=== PATIENT | female | born 1940 | race Caucasian/White ===

== ENCOUNTER → 2016-11-01 | Outpatient (CLI) | payer MEDICARE, BC ==
--- NOTE | 2016-11-01 16:45 | US ---
EXAMINATION TYPE: US carotid duplex BILAT DATE OF EXAM: 11/01/2016 3:26 PM COMPARISON: NONE CLINICAL HISTORY: I65.23,OCCLUSION AND STENOSIS OF BILATERAL CAROTID ARTERIES per order. EXAM MEASUREMENTS: RIGHT: Peak Systolic Velocity (PSV) cm/sec ----- Right CCA: 80.3 ----- Right ICA: 86.7 ----- Right ECA: 98.0 ICA/CCA ratio: 1.1 RIGHT: End Diastole cm/sec ----- Right CCA: 21.0 ----- Right ICA: 32.3 ----- Right ECA: 10.9 LEFT: Peak Systolic Velocity (PSV) cm/sec ----- Left CCA: 77.8 ----- Left ICA: 97.6 ----- Left ECA: 94.3 ICA/CCA ratio: 1.3 LEFT: End Diastole cm/sec ----- Left CCA: 21.6 ----- Left ICA: 35.9 ----- Left ECA: 9.5 VERTEBRALS (direction of flow): Right Vertebral: Antegrade Left Vertebral: Antegrade No significant stenosis seen, no elevated velocities, bilateral plaque noted Grayscale images show mild eccentric hyperechoic plaque at bilateral carotid bulbs. Velocity measurem ents and ratios remain within normal limits bilaterally. IMPRESSION: No hemodynamically significant stenosis is seen in either internal carotid artery.
--- NOTE | 2016-11-02 09:52 | ECHOF ---
Referral Reason:I34.9 Mitral valve disorder, I65.23 Stenosis MEASUREMENTS -------- HEIGHT: 154.9 cm WEIGHT: 59.4 kg BP: IVSd: 0.9 cm (0.6 - 1.1) LVIDd: 4.2 cm (3.9 - 5.3) LVPWd: 0.9 cm (0.6 - 1.1) IVSs: 1.8 cm LVIDs: 2.0 cm LVPWs: 1.7 cm LAESV Index (A-L): 31.66 ml/m Ao Diam: 2.6 cm (2.0 - 3.7) AV Cusp: 1.2 cm (1.5 - 2.6) LA Diam: 2.8 cm (2.7 - 3.8) MV EXCURSION: 12.148 mm (> 18.000) MV EF SLOPE: 47 mm/s (70 - 150) EPSS: 0.5 cm MV E Higinio: 1.06 m/s MV DecT: 225 ms MV A Higinio: 1.38 m/s MV E/A Ratio: 0.77 AV maxP.83 mmHg AV meanP.36 mmHg RAP: 5.00 mmHg RVSP: 18.64 mmHg FINDINGS -------- Sinus rhythm. This was a technically good study. Left ventricular wall thickness is normal. Overall left ventricular systolic function is normal with, an EF between 55 - 60 %. The right ventricle is normal in size and function. LA is midly dilated 29-33ml/m2. The right atrium is normal in size. Aortic valve is trileaflet and is mildly thickened. The mitral valve leaflets are moderately thickened. Moderate mitral annular calcification present. Mild mitral regurgitation is present. Mild tricuspid regurgitation present. The right ventricular systolic pressure, as measured by Doppler, is 18.64mmHg. Pulmonic valve appears structurally normal. The aortic root size is normal. The pericardium is normal. CONCLUSIONS -------- 1. Sinus rhythm. 2. Moderate mitral annular calcification present. 3. Mild mitral regurgitation is present. 4. Mild tricuspid regurgitation present. 5. The right ventricular systolic pressure, as measured by Doppler, is 18.64mmHg. 6. Pulmonic valve appears structurally normal. 7. The aortic root size is normal. 8. The pericardium is normal. 9. This was a technically good study. 10. Left ventricular wall thickness is normal. 11. Overall left ventricular systolic function is normal with, an EF between 55 - 60 %. 12. The right ventricle is normal in size and function. 13. LA is midly dilated 29-33ml/m2. 14. The right atrium is normal in size. 15. Aortic valve is trileaflet and is mildly thickened. 16. The mitral valve leaflets are moderately thickened. [employer] EDITOR: Krystin Gates RDCS
== END | disposition home or self-care (01) ==
LOC: RADECHMAIN 14:44
PROVIDERS: ATTEND Internal Medicine
DX: I34.8 Other nonrheumatic mitral valve disorders (principal); I34.0 Nonrheumatic mitral (valve) insufficiency; I07.1 Rheumatic tricuspid insufficiency; I65.23 Occlusion and stenosis of bilateral carotid arteries
CPT/HCPCS: 93306; 93880

== ENCOUNTER → 2017-07-29 | Outpatient (CLI) | payer MEDICARE ==
--- NOTE | 2017-07-30 09:46 | MM ---
Reason for exam: screening (asymptomatic). Last mammogram was performed 1 year and 1 month ago. History: Patient is postmenopausal and history of other cancer. Family history of breast cancer in mother at age 89, breast cancer in daughter at age 43, and breast cancer in daughter at age 49. Physical Findings: A clinical breast exam by your physician is recommended on an annual basis and results should be correlated with mammographic findings. MG 3D Screening Mammo W/Cad Bilateral CC and MLO view(s) were taken. Prior study comparison: June 24, 2016, bilateral MG 3d screening mammo w/cad. June 20, 2015, bilateral MG 3d screening mammo w/cad. The breast tissue is heterogeneously dense. This may lower the sensitivity of mammography. Developing asymmetry in the left 12 o'clock position. This finding is changed when compared with previous exams. ASSESSMENT: Incomplete: need additional imaging evaluation, BI-RAD 0 RECOMMENDATION: Special view mammogram of the left breast. If lesion persists on supplemental views, image directed ultrasound is recommended. [facility] will attempt to contact patient to return for supplemental views and ultrasound if indicated.
== END | disposition home or self-care (01) ==
LOC: RADMAMWWP 13:12
PROVIDERS: ATTEND Internal Medicine
DX: Z12.31 Encounter for screening mammogram for malignant neoplasm of breast (principal)
CPT/HCPCS: 77063; 77067

== ENCOUNTER → 2017-08-08 | Outpatient (CLI) | payer MEDICARE ==
--- NOTE | 2017-08-08 15:07 | MM ---
Reason for exam: additional evaluation requested from abnormal screening. Last mammogram was performed less than 1 month ago. History: Patient is postmenopausal and history of other cancer. Family history of breast cancer in mother at age 89, breast cancer in daughter at age 43, and breast cancer in daughter at age 49. Physical Findings: Nurse did not find any significant physical abnormalities on exam. MG 3D Work Up W/Cad LT Spot compression CC, spot compression MLO, and ML view(s) were taken of the left breast. Prior study comparison: July 29, 2017, bilateral MG 3d screening mammo w/cad. June 24, 2016, bilateral MG 3d screening mammo w/cad. The breast tissue is heterogeneously dense. This may lower the sensitivity of mammography. No suspicious abnormality. The previously seen focal asymmetry resolves and fibroglandular tissue. These results were verbally communicated with the patient and result sheet given to the patient on 08/08/17. ASSESSMENT: Negative, BI-RAD 1 RECOMMENDATION: Return to routine screening mammogram schedule for both breasts.
== END | disposition home or self-care (01) ==
LOC: RADMAMWWP 14:17
PROVIDERS: ATTEND Internal Medicine
DX: R92.8 Other abnormal and inconclusive findings on diagnostic imaging of breast (principal)
CPT/HCPCS: 77065; G0279

== ENCOUNTER → 2017-11-03 | Outpatient (CLI) | payer MEDICARE ==
[2017-11-03 10:02] LABS: Basophils % (A) 0 %; Eosinophils # (A) 0.2 k/uL (0-0.7); Eosinophils % (A) 3 %; HCT 42.4 % (34.0-46.0); HGB 14.2 gm/dL (11.4-16.0); Lymphocytes # (A) 2.2 k/uL (1.0-4.8); Lymphocytes % (A) 32 %; MCH 34.2 pg (25.0-35.0); MCHC 33.5 g/dL (31.0-37.0); MCV 102.1 fL (80.0-100.0); Macrocytosis Slight; Mean Platelet Volume 6.9; Monocytes # (A) 0.6 k/uL (0-1.0); Monocytes % (A) 9 %; Neutrophils # (A) 3.7 k/uL (1.3-7.7); Neutrophils % (A) 54 %; Platelet Count 348 k/uL (150-450); RBC 4.16 m/uL (3.80-5.40); RDW 12.6 % (11.5-15.5); WBC 6.9 k/uL (3.8-10.6)
[2017-11-03 10:04] LABS: ALT 23 U/L (9-52); AST 19 U/L (14-36); Albumin 4.6 g/dL (3.5-5.0); Alkaline Phosphatase 131 U/L (38-126); Anion Gap 14 mmol/L; Blood Urea Nitrogen 6 mg/dL (7-17); Carbon Dioxide 26 mmol/L (22-30); Chloride 96 mmol/L (98-107); Cholesterol 236 mg/dL (<200); Creatine Kinase 37 U/L (30-135); Glucose 105 mg/dL (74-99); Magnesium 1.7 mg/dL (1.6-2.3); Sodium 136 mmol/L (137-145); Total Bilirubin 0.8 mg/dL (0.2-1.3); Total Protein 7.7 g/dL (6.3-8.2); Triglycerides 63 mg/dL (<150)
[2017-11-03 10:11] LABS: HDL Cholesterol 121 mg/dL (40-60); LDL Cholesterol,Calculated 102 mg/dL (0-99); Potassium 4.2 mmol/L (3.5-5.1)
[2017-11-03 10:17] LABS: T4, Free (Free Thyroxine) 1.05 ng/dL (0.78-2.19)
[2017-11-03 10:22] LABS: Appearance,Urine Clear (Clear); Bacteria,Urine Rare /hpf; Bilirubin,Urine Negative (Negative); Blood,Urine Negative (Negative); Color,Urine Light Yellow; Glucose,Urine (UA) Negative (Negative); Ketones,Urine Negative (Negative); Leukocyte Esterase,Urine Trace (Negative); Nitrite,Urine Negative (Negative); PH, Urine 7.5 (5.0-8.0); Protein,Urine Negative (Negative); Specific Gravity,Urine 1.007 (1.001-1.035); Squamous Epithelial Cell,Urine 1 /hpf (0-4); Urobilinogen,Urine <2.0 mg/dL (<2.0); WBC,Urine 1 /hpf (0-5)
[2017-11-03 16:15] LABS: Iron Saturation 34.58 (12.00-45.00)
[2017-11-03 16:38] LABS: Folate, Serum >24.0 ng/mL
[2017-11-03 17:49] LABS: Hemoglobin A1C 4.9 % (4.0-6.0)
== END | disposition home or self-care (01) ==
LOC: LABWHC1 09:28
PROVIDERS: ATTEND Internal Medicine
DX: M47.12 Other spondylosis with myelopathy, cervical region (principal); D64.9 Anemia, unspecified; I10 Essential (primary) hypertension; R73.01 Impaired fasting glucose
CPT/HCPCS: 36415; 80053; 80061; 81001; 82306; 82550; 82607; 82728; 82746; 83036; 83540; 83550; 83735; 84439; 84443; 84550; 85025

== ENCOUNTER → 2018-07-31 | Outpatient (CLI) | payer MEDICARE ==
--- NOTE | 2018-08-09 11:05 | MM ---
Reason for exam: screening (asymptomatic). Last mammogram was performed 1 year ago. History: Patient is postmenopausal and history of other cancer. Family history of breast cancer in mother at age 89, premenopausal breast cancer in daughter at age 43, and breast cancer in daughter at age 49. MG 3D Screening Mammo W/Cad Bilateral CC and MLO view(s) were taken. Prior study comparison: August 08, 2017, left breast MG 3d work up w/cad LT. July 29, 2017, bilateral MG 3d screening mammo w/cad. The breast tissue is heterogeneously dense. This may lower the sensitivity of mammography. There are benign-appearing bilateral breast calcifications. No suspicious abnormality. No significant changes when compared with prior studies. ASSESSMENT: Benign, BI-RAD 2 RECOMMENDATION: Routine screening mammogram of both breasts in 1 year.
== END | disposition home or self-care (01) ==
LOC: RADMAMWWP 10:55
PROVIDERS: ATTEND Internal Medicine
DX: Z12.31 Encounter for screening mammogram for malignant neoplasm of breast (principal)
CPT/HCPCS: 77063; 77067

== ENCOUNTER → 2018-11-04 | Outpatient (CLI) | payer MEDICARE ==
[2018-11-04 10:53] LABS: Basophils % (A) 1 %; Eosinophils # (A) 0.1 k/uL (0-0.7); Eosinophils % (A) 2 %; HCT 41.3 % (34.0-46.0); HGB 13.6 gm/dL (11.4-16.0); Lymphocytes # (A) 2.1 k/uL (1.0-4.8); Lymphocytes % (A) 37 %; MCH 33.5 pg (25.0-35.0); MCHC 32.8 g/dL (31.0-37.0); MCV 102.1 fL (80.0-100.0); Macrocytosis Slight; Mean Platelet Volume 6.9; Monocytes # (A) 0.5 k/uL (0-1.0); Monocytes % (A) 9 %; Neutrophils # (A) 2.7 k/uL (1.3-7.7); Neutrophils % (A) 48 %; Platelet Count 325 k/uL (150-450); RBC 4.05 m/uL (3.80-5.40); RDW 12.7 % (11.5-15.5); WBC 5.5 k/uL (3.8-10.6)
[2018-11-04 11:04] LABS: Appearance,Urine Clear (Clear); Bilirubin,Urine Negative (Negative); Blood,Urine Negative (Negative); Color,Urine Light Yellow; Glucose,Urine (UA) Negative (Negative); Ketones,Urine Negative (Negative); Leukocyte Esterase,Urine Trace (Negative); Nitrite,Urine Negative (Negative); PH, Urine 7.5 (5.0-8.0); Protein,Urine Negative (Negative); Specific Gravity,Urine 1.005 (1.001-1.035); Squamous Epithelial Cell,Urine 1 /hpf (0-4); Urobilinogen,Urine <2.0 mg/dL (<2.0); WBC,Urine 1 /hpf (0-5)
[2018-11-04 17:36] LABS: ALT 14 U/L (8-44); AST 18 U/L (13-35); Albumin/Globulin Ratio 2.09 (1.60-3.17); Alkaline Phosphatase 118 U/L (41-126); Calcium 9.8 mg/dL (8.7-10.3); Carbon Dioxide 26.4 mmol/L (21.6-31.8); Chloride 98 mmol/L (96-109); Cholesterol 223 mg/dL (0-200); Creatine Kinase 39 U/L (26-186); Globulin 2.2 g/dL (1.6-3.3); Glucose 96 mg/dL (70-110); Magnesium 1.7 mg/dL (1.5-2.4); Potassium 4.3 mmol/L (3.5-5.5); Sodium 134 mmol/L (135-145); Total Bilirubin 0.7 mg/dL (0.3-1.2); Total Protein 6.8 g/dL (6.2-8.2); Triglycerides <50.0 mg/dL (0.0-149.0); Uric Acid 2.8 mg/dL (2.9-7.7); VLDL Calculation 9.98 mg/dL (5.00-40.00)
[2018-11-04 18:07] LABS: Hemoglobin A1C 5.1 % (4.0-6.0)
== END | disposition home or self-care (01) ==
LOC: LABWHC1 09:55
PROVIDERS: ATTEND Internal Medicine
DX: Z00.00 Encounter for general adult medical examination without abnormal findings (principal); I10 Essential (primary) hypertension; R73.01 Impaired fasting glucose; M81.0 Age-related osteoporosis without current pathological fracture
CPT/HCPCS: 36415; 80053; 80061; 81001; 82306; 82550; 83036; 83735; 84439; 84443; 84550; 85025

== ENCOUNTER → 2018-11-20 | Outpatient (CLI) | payer MEDICARE ==
--- NOTE | 2018-11-23 19:00 | BD ---
EXAMINATION TYPE: Axial Bone Density DATE OF EXAM: 11/20/2018 COMPARISON: 11/01/2016 CLINICAL HISTORY: 77-year-old female age-related osteoporosis Height: 61 Weight: 140.0 FRAX RISK QUESTIONS: Alcohol (3 or more units per day): no Family History (Parent hip fracture): no Glucocorticoids (More than 3mos): no (Ex: prednisone, prednisolone, methylprednisolone, dexamethasone, and hydrocortisone). History of Fracture in Adulthood: yes Secondary Osteoporosis: 1. Type 1 Diabetes: no 2. Hyperthyroidism: no 3. Menopause before 45: no 4. Malnutrition: no 5. Chronic liver disease: no Rheumatoid Arthritis: no Current Tobacco Use: no RISK FACTORS HISTORY OF: Hip Fracture (Right/Left): right When: 2009 Surgery to Spine/Hip(right/left)/Wrist (right/left): right hip /right femur When: 2009 Family History of Osteoporosis: yes Active: yes Diet low in dairy products/other sources of calcium: no Postmenopausal woman: age 52 Lost more than 2 inches in height since high school: yes MEDICATIONS: blood pressure Additional History: EXAM MEASUREMENTS: Bone mineral densitometry was performed using the [employer] System. Bone mineral density as measured about the Lumbar spine is: ----- L1-L4(G/cm2): 1.445 T Score Values are as follows: ----- L2: 1.2 ----- L3: 1.8 ----- L4: 3.0 ----- L1-L4: 2.2 Bone mineral density has: decreased -2.1 % since study of: 11.01.2016 Bone mineral density about the L hip (g/cm2): 0.812 T Score values are as follows: -----L Neck: -1.6 ----L Total: -0.9 Bone mineral density has: increased 1.9 % since study of: 11.01.2016 IMPRESSION: Osteopenia (T Score between -2.5 and -1). There is slightly increased risk of fracture and the patient may be considered for treatment. Re-Screen 2-5 years. NOTE: T-SCORE=SD OF THE YOUNG ADULT MEAN.
== END | disposition home or self-care (01) ==
LOC: RADBDWWP 15:24
PROVIDERS: ATTEND Internal Medicine
DX: M85.80 Other specified disorders of bone density and structure, unspecified site (principal)
CPT/HCPCS: 77080

== ENCOUNTER → 2019-05-10 | Outpatient (CLI) | payer MEDICARE ==
[2019-05-10 10:15] LABS: Basophils % (A) 1 %; Eosinophils # (A) 0.2 k/uL (0-0.7); Eosinophils % (A) 2 %; HCT 40.3 % (34.0-46.0); HGB 13.7 gm/dL (11.4-16.0); Lymphocytes # (A) 2.2 k/uL (1.0-4.8); Lymphocytes % (A) 30 %; MCH 35.5 pg (25.0-35.0); MCV 104.4 fL (80.0-100.0); Macrocytosis Slight; Mean Platelet Volume 5.8; Monocytes # (A) 0.5 k/uL (0-1.0); Monocytes % (A) 7 %; Neutrophils # (A) 4.2 k/uL (1.3-7.7); Neutrophils % (A) 57 %; Platelet Count 302 k/uL (150-450); RBC 3.86 m/uL (3.80-5.40); RDW 11.9 % (11.5-15.5); WBC 7.3 k/uL (3.8-10.6)
[2019-05-10 17:48] LABS: ALT 16 U/L (8-44); AST 19 U/L (13-35); Alkaline Phosphatase 116 U/L (41-126); Calcium 9.5 mg/dL (8.7-10.3); Carbon Dioxide 27.9 mmol/L (21.6-31.8); Chloride 95 mmol/L (96-109); Chol/HDL Ratio 2.12; Cholesterol 216 mg/dL (0-200); Globulin 2.1 g/dL (1.6-3.3); Glucose 102 mg/dL (70-110); Potassium 4.6 mmol/L (3.5-5.5); Sodium 135 mmol/L (135-145); Total Bilirubin 0.7 mg/dL (0.2-1.2); Total Protein 6.5 g/dL (6.2-8.2); Triglycerides <50.0 mg/dL (0.0-149.0); Uric Acid 3.1 mg/dL (2.9-7.7)
[2019-05-10 19:47] LABS: Hemoglobin A1C 5.2 % (4.0-6.0)
== END | disposition home or self-care (01) ==
LOC: LABWHC1 09:26
PROVIDERS: ATTEND Internal Medicine
DX: I10 Essential (primary) hypertension (principal); E78.2 Mixed hyperlipidemia
CPT/HCPCS: 36415; 80053; 80061; 83036; 84439; 84443; 84550; 85025

== ENCOUNTER → 2019-08-18 | Outpatient (CLI) | payer MEDICARE ==
--- NOTE | 2019-08-19 13:47 | MM ---
Reason for exam: screening (asymptomatic). Last mammogram was performed 1 year and 1 month ago. History: Patient is postmenopausal and history of other cancer. Family history of breast cancer in mother at age 89, premenopausal breast cancer in daughter at age 43, and breast cancer in daughter at age 49. Physical Findings: A clinical breast exam by your physician is recommended on an annual basis and results should be correlated with mammographic findings. MG 3D Screening Mammo W/Cad Bilateral CC and MLO view(s) were taken. Prior study comparison: July 31, 2018, bilateral MG 3d screening mammo w/cad. August 08, 2017, left breast MG 3d work up w/cad LT. The breast tissue is heterogeneously dense. This may lower the sensitivity of mammography. There is no discrete abnormality. No significant changes when compared with prior studies. ASSESSMENT: Negative, BI-RAD 1 RECOMMENDATION: Routine screening mammogram of both breasts in 1 year.
== END | disposition home or self-care (01) ==
LOC: RADMAMWWP 10:56
PROVIDERS: ATTEND Internal Medicine
DX: Z12.31 Encounter for screening mammogram for malignant neoplasm of breast (principal)
CPT/HCPCS: 77063; 77067

== ENCOUNTER → 2020-08-14 | Outpatient (CLI) | payer MEDICARE ==
--- NOTE | 2020-08-14 14:57 | US ---
EXAMINATION TYPE: US venous doppler duplex LE RT DATE OF EXAM: 08/14/2020 12:49 PM COMPARISON: NONE CLINICAL HISTORY: 79-year-old female M79.604 Right leg pain. SIDE PERFORMED: Right TECHNIQUE: The lower extremity deep venous system is examined utilizing real time linear array sonog willian with graded compression, doppler sonography and color-flow sonography. FINDINGS: VESSELS IMAGED: Common Femoral Vein Deep Femoral Vein Greater Saphenous Vein * Femoral Vein Popliteal Vein Small Saphenous Vein * Proximal Calf Veins (* superficial vessels) Right Leg: Negative for DVT IMPRESSION: No evidence for DVT within the right lower extremity imaged from the groin to the upper calf.
== END | disposition home or self-care (01) ==
LOC: RADUSWWP 12:14
PROVIDERS: ATTEND Internal Medicine
DX: M79.604 Pain in right leg (principal)

== ENCOUNTER → 2020-08-21 | Outpatient (CLI) | payer MEDICARE ==
--- NOTE | 2020-08-22 10:01 | MM ---
Reason for exam: screening (asymptomatic). Last mammogram was performed 1 year ago. History: Patient is postmenopausal and history of other cancer. Family history of breast cancer in mother at age 89, premenopausal breast cancer in daughter at age 43, and breast cancer in daughter at age 49. Took hormonal contraceptives for 5 years. Physical Findings: A clinical breast exam by your physician is recommended on an annual basis and results should be correlated with mammographic findings. MG 3D Screening Mammo W/Cad Bilateral CC and MLO view(s) were taken. Prior study comparison: August 18, 2019, bilateral MG 3d screening mammo w/cad. July 31, 2018, bilateral MG 3d screening mammo w/cad. The breast tissue is heterogeneously dense. This may lower the sensitivity of mammography. Stable vascular calcifications. There is no discrete abnormality. No significant changes when compared with prior studies. ASSESSMENT: Benign, BI-RAD 2 RECOMMENDATION: Routine screening mammogram of both breasts in 1 year.
== END | disposition home or self-care (01) ==
LOC: RADMAMWWP 08:34
PROVIDERS: ATTEND Internal Medicine
DX: Z12.31 Encounter for screening mammogram for malignant neoplasm of breast (principal)
CPT/HCPCS: 77063; 77067

== ENCOUNTER → 2020-11-22 | Outpatient (CLI) | payer MEDICARE ==
--- NOTE | 2020-11-24 10:58 | BD ---
EXAMINATION TYPE: Axial Bone Density DATE OF EXAM: 11/22/2020 COMPARISON: NONE CLINICAL HISTORY: Height: 60.5 Weight: 142.5 FRAX RISK QUESTIONS: Alcohol (3 or more units per day): no Family History (Parent hip fracture): no Glucocorticoids (More than 3mos): no (Ex: prednisone, prednisolone, methylprednisolone, dexamethasone, and hydrocortisone). History of Fracture in Adulthood: yes Secondary Osteoporosis: 1. Type 1 Diabetes: no 2. Hyperthyroidism: no 3. Menopause before 45: no 4. Malnutrition: no 5. Chronic liver disease: no Rheumatoid Arthritis: yes Current Tobacco Use: no RISK FACTORS HISTORY OF: Hip Fracture (Right/Left): right When: 4 years ago Surgery to Spine/Hip(right/left)/Wrist (right/left): right hip When: 4 years Family History of Osteoporosis: yes Active: yes Diet low in dairy products/other sources of calcium: no Postmenopausal woman: age 52 Lost more than 2 inches in height since high school: yes MEDICATIONS: scanned into pacs Additional History: EXAM MEASUREMENTS: Bone mineral densitometry was performed using the [employer] System. Bone mineral density as measured about the Lumbar spine is: ----- L1-L4(G/cm2): 1.514 T Score Values are as follows: ----- L2: 1.8 ----- L3: 2.8 ----- L4: 3.7 ----- L1-L4: 2.8 Bone mineral density has: increased 5.6 % since study of: 11.20.2018 Bone mineral density about the L hip (g/cm2): 0.818 T Score values are as follows: -----L Neck: -1.6 -----L Total: -0.9 Bone mineral density has: decreased -0.7 % since study of: 11.20.2018 IMPRESSION: No evidence for osteoporosis or osteopenia NOTE: T-SCORE=SD OF THE YOUNG ADULT MEAN.
== END | disposition home or self-care (01) ==
LOC: RADBDWWP 09:19
PROVIDERS: ATTEND Internal Medicine
DX: M81.8 Other osteoporosis without current pathological fracture (principal)
CPT/HCPCS: 77080

== ENCOUNTER → 2021-02-01 | Outpatient (CLI) | payer MEDICARE ==
[2021-02-01 14:38] LABS: Basophils # (A) 0.06 X 10*3/uL (0.00-0.10); Basophils % (A) 0.9 %; Eosinophils # (A) 0.16 X 10*3/uL (0.04-0.35); Eosinophils % (A) 2.4 %; HCT 39.9 % (37.2-46.3); HGB 13.2 g/dL (12.0-15.0); Lymphocytes # (A) 2.37 X 10*3/uL (0.90-5.00); Lymphocytes % (A) 35.4 %; MCH 34.4 pg (27.0-32.0); MCHC 33.1 g/dL (32.0-37.0); MCV 103.9 fL (80.0-97.0); Mean Platelet Volume 9.9 fL (9.5-12.2); Monocytes # (A) 0.89 X 10*3/uL (0.20-1.00); Monocytes % (A) 13.3 %; Neutrophils % (A) 47.9 %; Platelet Count 337 X 10*3/uL (140-440); RBC 3.84 X 10*6/uL (4.10-5.20); WBC 6.69 X 10*3/uL (4.50-10.00)
[2021-02-01 15:50] LABS: ALT 16 U/L (8-44); AST 23 U/L (13-35); African American GFR (CKD) 107.4 (60.0-200.0); Alkaline Phosphatase 123 U/L (41-126); Calcium 9.4 mg/dL (8.7-10.3); Carbon Dioxide 25.8 mmol/L (21.6-31.8); Chloride 97 mmol/L (96-109); Chol/HDL Ratio 1.89; Cholesterol 202 mg/dL (0-200); Globulin 2.5 g/dL (1.6-3.3); Glucose 97 mg/dL (70-110); Non-African American GFR(CKD) 92.7 (60.0-200.0); Potassium 4.4 mmol/L (3.5-5.5); Sodium 132 mmol/L (135-145); Total Bilirubin 0.7 mg/dL (0.3-1.2); Triglycerides <50.0 mg/dL (0.0-149.0)
== END | disposition home or self-care (01) ==
LOC: LABWHC1 10:07
PROVIDERS: ATTEND Internal Medicine
DX: I10 Essential (primary) hypertension (principal); E78.2 Mixed hyperlipidemia
CPT/HCPCS: 36415; 80053; 80061; 84443; 85025

== ENCOUNTER → 2021-02-27 | Outpatient (CLI) | payer MEDICARE ==
--- NOTE | 2021-02-27 16:43 | US ---
EXAMINATION TYPE: US carotid duplex BILAT DATE OF EXAM: 02/27/2021 COMPARISON: US 2017 CLINICAL HISTORY: 80-year-old female R09.89 Bilateral carotid bruits. EXAM MEASUREMENTS: RIGHT: Peak Systolic Velocity (PSV) cm/sec ----- Right CCA: 94.3 ----- Right ICA: 106.0 ----- Right ECA: 109.9 ICA/CCA ratio: 1.1 RIGHT: End Diastole cm/sec ----- Right CCA: 25.5 ----- Right ICA: 34.6 ----- Right ECA: 13.8 LEFT: Peak Systolic Velocity (PSV) cm/sec ----- Left CCA: 102.5 (proximal 152.6 cm/s) ----- Left ICA: 112.6 ----- Left ECA: 102.5 ICA/CCA ratio: 1.1 LEFT: End Diastole cm/sec ----- Left CCA: 20.9 ----- Left ICA: 35.9 ----- Left ECA: 10.8 VERTEBRALS (direction of flow): Right Vertebral: Antegrade Left Vertebral: Antegrade Rhythm: Normal Certifier notes: Elevated velocity: prox left CCA No significant stenosis. IMPRESSION: 1. Mildly elevated velocity proximal left common carotid artery could reflect a mild to moderate sten osis at its origin. 2. Otherwise, no hemodynamically significant ICA stenosis on either side. NASCET criteria was used in interpretation of this exam? Criteria for Assigning % of Stenosis / Diameter reduction (Estimation based on the indirect measurements of the internal carotid artery velocities (ICA PSV). 1. Normal (no stenosis)=ICA PSV < 125 cm/s: ratio < 2.0: ICA EDV<40 cm/s. 2. Less than 50% stenosis=ICA PSV < 125 cm/s: ratio < 2.0: ICA EDV<40 cm/s. 3. 50 to 69% stenosis=ICA PSV of 125 to 230 cm/s: ration 2.0 ? 4.0: ICA EDV 40-100 cm/s. 4. Greater than 70% stenosis to near occlusion= ICA PSV > 230 cm/s: ratio > 4.0: ICA EDV > 100 cm/s. 5. Near occlusion= ICA PSV velocities may be low or undetectable: variable ratio and ICA EDV. 6. Total occlusion=unable to detect flow.
--- NOTE | 2021-02-28 10:32 | ECHOF ---
Referral Reason:I35.1 Nonrheumatic aortic (valve) insufficiency MEASUREMENTS -------- HEIGHT: 152.4 cm WEIGHT: 64.9 kg BP: IVSd: 1.2 cm (0.6 - 1.1) LVIDd: 4.1 cm (3.9 - 5.3) LVPWd: 0.9 cm (0.6 - 1.1) IVSs: 1.5 cm LVIDs: 3.2 cm LVPWs: 1.2 cm LAESV Index (A-L): 45.56 ml/m Ao Diam: 3.0 cm (2.0 - 3.7) MV E Higinio: 0.93 m/s MV DecT: 279 ms MV A Higinio: 1.39 m/s MV E/A Ratio: 0.67 AV maxP.98 mmHg AV meanP.58 mmHg RAP: 5.00 mmHg RVSP: 37.86 mmHg FINDINGS -------- Sinus rhythm. This was a technically adequate study. The left ventricular size is normal. There is mild concentric left ventricular hypertrophy. Overa ll left ventricular systolic function is normal with, an EF between 55 - 60 %. Pseudonormal LV fill ing pattern, consistent with elevated LA pressure. The right ventricle is normal in size. LA is severely dilated >40 ml/m2 The right atrial size is normal. There is mild aortic stenosis present. Peak/mean gradient across the Aortic Valve is 17.98mmHg / 8. 58mmHg. Severe mitral annular calcification present. Mild mitral regurgitation is present. The peak and mean MV gradients are 10.61mmHg 3.65mmHg as measured by doppler. The tricuspid valve appears structurally normal. Mild tricuspid regurgitation present. There is m ild pulmonary hypertension. The right ventricular systolic pressure, as measured by Doppler, is 37. 86mmHg. There is no pulmonic regurgitation present. The aortic root size is normal. There is no pericardial effusion. CONCLUSIONS -------- 1. There is mild concentric left ventricular hypertrophy. 2. Overall left ventricular systolic function is normal with, an EF between 55 - 60 %. 3. LA is severely dilated >40 ml/m2 4. There is mild aortic stenosis present. 5. Peak/mean gradient across the Aortic Valve is 17.98mmHg / 8.58mmHg. 6. Severe mitral annular calcification present. 7. Mild mitral regurgitation is present. 8. The peak and mean MV gradients are 10.61mmHg 3.65mmHg as measured by doppler. 9. Mild tricuspid regurgitation present. 10. There is mild pulmonary hypertension. 11. There is no pericardial effusion. RADIO ANNOUNCER: Melanie Harris RDCS
== END | disposition home or self-care (01) ==
LOC: RADECHMAIN 15:24
PROVIDERS: ATTEND Internal Medicine
DX: I08.3 Combined rheumatic disorders of mitral, aortic and tricuspid valves (principal); I27.20 Pulmonary hypertension, unspecified; R09.89 Other specified symptoms and signs involving the circulatory and respiratory systems
CPT/HCPCS: 93306; 93880

== ENCOUNTER → 2021-10-09 | Outpatient (CLI) | payer MEDICARE ==
--- NOTE | 2021-10-10 10:33 | MM ---
Reason for exam: screening (asymptomatic). Last mammogram was performed 1 year and 2 months ago. History: Patient is postmenopausal and history of other cancer. Family history of breast cancer in mother at age 89, premenopausal breast cancer in daughter at age 43, and breast cancer in daughter at age 49. Took hormonal contraceptives for 5 years. Physical Findings: A clinical breast exam by your physician is recommended on an annual basis and results should be correlated with mammographic findings. MG 3D Screening Mammo W/Cad Bilateral CC and MLO view(s) were taken. XCCL view(s) were taken of the right breast. Prior study comparison: August 21, 2020, bilateral MG 3d screening mammo w/cad. August 18, 2019, bilateral MG 3d screening mammo w/cad. The breast tissue is heterogeneously dense. This may lower the sensitivity of mammography. Asymmetric breast tissue right breast medially CC view. ASSESSMENT: Incomplete: need additional imaging evaluation, BI-RAD 0 RECOMMENDATION: Ultrasound of the right breast. [facility] will attempt to contact patient to return for ultrasound.
== END | disposition home or self-care (01) ==
LOC: RADMAMWWP 08:14
PROVIDERS: ATTEND Internal Medicine
DX: Z12.31 Encounter for screening mammogram for malignant neoplasm of breast (principal); Z78.0 Asymptomatic menopausal state; Z80.3 Family history of malignant neoplasm of breast
CPT/HCPCS: 77063; 77067

== ENCOUNTER → 2022-01-01 | Outpatient (CLI) | payer MEDICARE ==
[2022-01-01 15:02] LABS: Basophils # (A) 0.04 X 10*3/uL (0.00-0.10); Basophils % (A) 0.7 %; Eosinophils # (A) 0.13 X 10*3/uL (0.04-0.35); Eosinophils % (A) 2.2 %; HGB 12.5 g/dL (12.0-15.0); Immature Grans, Automated 0.2 %; Lymphocytes % (A) 34.5 %; MCH 33.1 pg (27.0-32.0); MCHC 32.1 g/dL (32.0-37.0); MCV 103.2 fL (80.0-97.0); Mean Platelet Volume 10.9 fL (9.5-12.2); Monocytes # (A) 0.68 X 10*3/uL (0.20-1.00); Monocytes % (A) 11.7 %; NRBC Per 100 WBC 0 /100 WBCS (0.0-0.0); Neutrophils # (A) 2.93 X 10*3/uL (1.80-7.70); Neutrophils % (A) 50.7 %; Platelet Count 295 X 10*3/uL (140-440); RBC 3.78 X 10*6/uL (4.10-5.20); RDW 13.3 % (11.5-14.5); WBC 5.79 X 10*3/uL (4.50-10.00)
[2022-01-01 15:28] LABS: ALT 12 U/L (8-44); AST 13 U/L (13-35); African American GFR (CKD) 103.7 (60.0-200.0); Albumin 4.4 g/dL (3.8-4.9); Albumin/Globulin Ratio 1.86 (1.60-3.17); Alkaline Phosphatase 98 U/L (41-126); BUN/Creat Ratio 11.74 Ratio (12.00-20.00); Blood Urea Nitrogen 6.4 mg/dL (9.0-27.0); Calcium 9.6 mg/dL (8.7-10.3); Carbon Dioxide 25.5 mmol/L (20.0-27.5); Chloride 96 mmol/L (96-109); Chol/HDL Ratio 2.41 Ratio; Globulin 2.4 g/dL (1.6-3.3); Glucose 101 mg/dL (70-110); LDL Cholesterol,Calculated 116.2 mg/dL (0.0-131.0); Magnesium 1.7 mg/dL (1.5-2.4); Non-African American GFR(CKD) 89.5 (60.0-200.0); Potassium 4.7 mmol/L (3.5-5.5); Sodium 133 mmol/L (135-145); Total Protein 6.7 g/dL (6.2-8.2); VLDL Calculation 11.28 mg/dL (5.00-40.00)
== END | disposition home or self-care (01) ==
LOC: LABWHC1 08:48
PROVIDERS: ATTEND Internal Medicine
DX: I10 Essential (primary) hypertension (principal); E78.2 Mixed hyperlipidemia; M81.0 Age-related osteoporosis without current pathological fracture
CPT/HCPCS: 36415; 80053; 80061; 83036; 83735; 84439; 84443; 85025

== ENCOUNTER → 2022-10-10 | Outpatient (CLI) | payer MEDICARE ==
--- NOTE | 2022-10-10 10:23 | MM ---
Reason for Exam: Screening (asymptomatic). Last screening mammogram was performed 12 month(s) ago. Patient History: Menarche at age 14. First Full-Term at age 24. Postmenopausal. Other cancer. Patient used Hormonal Contraceptives for 5 years. Daughter had breast cancer, age 43. Daughter had breast cancer, age 49. Mother had breast cancer, age 89. Risk Values: Amelia 5 year model risk: 6.8%. NCI Lifetime model risk: 11.1%. Prior Study Comparison: 08/18/2019 Bilateral Screening Mammogram, [facility]. 08/21/2020 Bilateral Screening Mammogram, [facility]. 10/09/2021 Bilateral Screening Mammogram, [facility]. Tissue Density: The breast tissue is heterogeneously dense. This may lower the sensitivity of mammography. Findings: Analyzed By CAD. Benign-appearing calcifications bilaterally. There is no suspicious group of microcalcifications or new suspicious mass in either breast. Overall Assessment: Benign, BI-RAD 2 Management: Screening Mammogram of both breasts in 1 year. A clinical breast exam by your physician is recommended on an annual basis and results should be correlated with mammographic findings. [facility] will attempt to contact patient to return for supplemental views and ultrasound if indicated. Electronically signed and approved by: Ney Tony DO
== END | disposition home or self-care (01) ==
LOC: RADMAMWWP 09:53
PROVIDERS: ATTEND Internal Medicine
DX: Z12.31 Encounter for screening mammogram for malignant neoplasm of breast (principal); Z78.0 Asymptomatic menopausal state; Z80.3 Family history of malignant neoplasm of breast
CPT/HCPCS: 77063; 77067

== ENCOUNTER → 2023-10-13 | Outpatient (CLI) | payer MEDICARE ==
--- NOTE | 2023-10-14 12:11 | BD ---
EXAMINATION TYPE: Axial Bone Density DATE OF EXAM: 10/13/2023 CLINICAL HISTORY: 82 years old Female. ICD-10 CODE: M81.0 AGE-RELATED OSTEOPOROSIS W/O CURRENT PATHO LO Height: 60 Weight: 146.0 FRAX RISK QUESTIONS: Alcohol (3 or more units per day): no Family History (Parent hip fracture): no Glucocorticoids (More than 3mos): no (Ex: prednisone, prednisolone, methylprednisolone, dexamethasone, and hydrocortisone). History of Fracture in Adulthood: yes Secondary Osteoporosis: 1. Type 1 Diabetes: no 2. Hyperthyroidism: no 3. Menopause before 45: no 4. Malnutrition: no 5. Chronic liver disease: no Rheumatoid Arthritis: yes Current Tobacco Use: no RISK FACTORS HISTORY OF: Hip Fracture (Right/Left): right When: 2010 Surgery to Spine/Hip(right/left)/Wrist (right/left): right hip When: 2010 EXAM MEASUREMENTS: Bone mineral densitometry was performed using the [employer] System. Bone mineral density as measured about the Lumbar spine is: ----- L1-L4(G/cm2): 1.663 T Score Values are as follows: ----- L1: 3.0 ----- L2: 4.3 ----- L3: 4.2 ----- L4: 4.3 ----- L1-L4: 4.0 Z Score Values are as follows: ----- L1: 4.8 ----- L2: 6.1 ----- L3: 6.1 ----- L4: 6.1 ----- L1-L4: 5.8 Bone mineral density has: increased 9.8 % since study of: 11.22.2020 Bone mineral density about the L hip (g/cm2): 0.911 T Score values are as follows: -----L Neck: -1.6 -----L Total: -0.8 Z Score values are as follows: -----L Neck: 0.5 -----L Total: 1.2 Bone mineral density has: increased 2.0 % since study of: 11.22.2020 FRAX%s: The graph provided illustrates a 25.4% chance for a major osteoporotic fx and a 6.6% chance f or the hips probability for fx in 10 years time. IMPRESSION: Normal (Values between +1 and -1 indicate normal bone mass). Consider repeating this study in 5 year s or sooner if there is some new clinical indication. NOTE: T-SCORE=SD OF THE YOUNG ADULT MEAN.
--- NOTE | 2023-10-14 12:18 | MM ---
Reason for Exam: Screening (asymptomatic). Last screening mammogram was performed 12 month(s) ago. Patient History: Menarche at age 14. First Full-Term at age 24. Postmenopausal. Other cancer. Patient used Hormonal Contraceptives for 5 years. Daughter had breast cancer, age 43. Daughter had breast cancer, age 49. Mother had breast cancer, age 89. Risk Values: Amelia 5 year model risk: 6.6%. NCI Lifetime model risk: 10.1%. Prior Study Comparison: 08/21/2020 Bilateral Screening Mammogram, [facility]. 10/09/2021 Bilateral Screening Mammogram, [facility]. 10/10/2022 Bilateral MG 3D screening mammo w/cad, [facility]. Tissue Density: The breasts are heterogeneously dense, which may obscure small masses. Findings: Analyzed By CAD. There is no suspicious group of microcalcifications or new suspicious mass. Overall Assessment: Negative, BI-RAD 1 Management: Screening Mammogram of both breasts in [address] [facility] will attempt to contact patient to return for supplemental views and ultrasound if indicated. Patient should continue monthly self-breast exams. A clinical breast exam by your physician is recommended on an annual basis. This exam should not preclude additional follow-up of suspicious palpable abnormalities. Note on Aemlia scores and lifetime risk: 1. A Amelia score greater than 3% is considered moderate risk. If this is the case, consider specialist referral to assess eligibility for a risk reducing agent. 2. If overall lifetime risk for the development of breast cancer is 20% or higher, the patient may qualify for future screening with alternating mammogram and breast MRI. Electronically signed and approved by: Ney Tony DO
== END | disposition home or self-care (01) ==
LOC: RADBDWWP 10:12
PROVIDERS: ATTEND Internal Medicine
DX: Z12.31 Encounter for screening mammogram for malignant neoplasm of breast (principal); M85.88 Other specified disorders of bone density and structure, other site; Z78.0 Asymptomatic menopausal state; Z80.3 Family history of malignant neoplasm of breast
CPT/HCPCS: 77063; 77067; 77080

== ENCOUNTER 2023-12-31 10:42 | Observation (INO) | payer MEDICARE ==
--- NOTE | 2023-12-31 11:01 | ED ---
Lower Extremity Injury HPI - General Source: patient, RN notes reviewed Mode of arrival: ambulatory Limitations: no limitations <Taryn Scott - Last Filed: 12/31/23 10:58> - General Source: RN notes reviewed, old records reviewed Mode of arrival: ambulatory Limitations: no limitations - History of Present Illness MD Complaint: leg injury -: week(s) (2) Injury: Leg: Right Place: home Severity: mild Severity scale (1-10): 2 Worsens With: nothing Context: direct blow Associated Symptoms: swelling, tingling Treatments Prior to Arrival: bandage <Troy Jain - Last Filed: 12/31/23 15:18> - General Chief Complaint: Extremity Injury, Lower Stated Complaint: Hematoma on R leg Time Seen by Provider: 12/31/23 10:59 - History of Present Illness Initial Comments: Quick Note: This is an 83-year-old female who presents to the emergency department for a right leg injury. States that 2 weeks ago she was hit in the leg with a soccer ball and has since developed a large hematoma. She went to [facility] when she had the initial injury and was told that this would go away, however it is continuing to persist. Not taking any blood thinners. States that this is painful. (Taryn Scott) This is a 83-year-old female to the ER for right leg pain right leg injury with significant hematoma in that leg. Patient has had multiple evaluations were symptoms have not gotten any better this has been 2 weeks of persistent pain (Troy Jain) - Related Data Home Medications Medication Instructions Recorded Confirmed Aspirin 81 mg PO DAILY 12/07/13 02/17/16 Multivitamin/Iron/Folic Acid 1 tab PO DAILY 12/07/13 02/17/16 [Centrum Complete Multivit Tab] Calcium Carbonate/Vitamin D3 1 each PO BID 01/05/14 02/17/16 [Caltrate 600 + D Tablet] Folic Acid 800 mg PO DAILY 01/06/14 02/17/16 Losartan Potassium 100 mg PO QAM 06/20/14 02/17/16 amLODIPine BESYLATE [Amlodipine 5 mg PO QAM 08/08/14 02/17/16 Besylate] Previous Rx's Medication Instructions Recorded diazePAM [Valium] 5 mg PO TID #9 tab 02/17/16 Allergies Allergy/AdvReac Type Severity Reaction Status Date / Time codeine Allergy Unknown Verified 12/31/23 11:00 hydrocodone bitartrate Allergy Itching Verified 12/31/23 11:00 [From [place]] metoprolol Allergy Rash/Hives Verified 12/31/23 11:00 tramadol Allergy VERTIGO Verified 12/31/23 11:00 Sulfa (Sulfonamide AdvReac LIGHT Verified 12/31/23 11:00 Antibiotics) HEADED, VERTIGO Review of Systems ROS Other: All systems not noted in ROS Statement are negative. <Taryn Scott - Last Filed: 12/31/23 10:58> ROS Other: All systems not noted in ROS Statement are negative. <Troy Jain - Last Filed: 12/31/23 15:18> ROS Statement: Those systems with pertinent positive or pertinent negative responses have been documented in the HPI. Past Medical History Past Medical History: Cancer, Hypertension, Skin Disorder Additional Past Medical History / Comment(s): SKIN CANCER, has a cold sore on lip History of Any Multi-Drug Resistant Organisms: None Reported Past Surgical History: Joint Replacement, Orthopedic Surgery, Tubal Ligation Additional Past Surgical History / Comment(s): SURGERY FOR SKIN CANCER-LEG, HIP ORIF Past Anesthesia/Blood Transfusion Reactions: No Reported Reaction Past Psychological History: No Psychological Hx Reported Past Alcohol Use History: Daily Past Drug Use History: None Reported <Taryn Scott - Last Filed: 12/31/23 10:58> General Exam <Taryn Scott - Last Filed: 12/31/23 10:58> General appearance: alert, in no apparent distress Head exam: Present: atraumatic, normocephalic, normal inspection Eye exam: Present: normal appearance, PERRL, EOMI. Absent: scleral icterus, conjunctival injection, periorbital swelling ENT exam: Present: normal exam, mucous membranes moist Neck exam: Present: normal inspection. Absent: tenderness, meningismus, lymphadenopathy Respiratory exam: Present: normal lung sounds bilaterally. Absent: respiratory distress, wheezes, rales, rhonchi, stridor Cardiovascular Exam: Present: regular rate, normal rhythm, normal heart sounds. Absent: systolic murmur, diastolic murmur, rubs, gallop, clicks GI/Abdominal exam: Present: soft, normal bowel sounds. Absent: distended, tenderness, guarding, rebound, rigid Extremities exam: Present: normal inspection, full ROM, normal capillary refill. Absent: tenderness, pedal edema, joint swelling, calf tenderness Back exam: Present: normal inspection Neurological exam: Present: alert, oriented X3, CN II-XII intact Psychiatric exam: Present: normal affect, normal mood Skin exam: Present: warm, dry, intact, normal color. Absent: rash <Troy Jain - Last Filed: 12/31/23 15:18> - General Exam Comments Initial Comments: Visual Physical Exam Vital signs reviewed General: Well-appearing, nontoxic, no acute distress. Head: Normocephalic, atraumatic Eyes: PERRLA, EOMI ENT: Airway patent Chest: Nonlabored breathing Skin: No visual rash, normal skin tone Neuro: Alert and oriented 3 Musculoskeletal: No gross abnormalities ([email or web address]) Course <Troy Jain - Last Filed: 12/31/23 15:18> Vital Signs 12/31/23 12/31/23 10:58 13:32 Temperature 98 F Pulse Rate 68 74 Respiratory 18 16 Rate Blood Pressure 181/87 198/105 O2 Sat by Pulse 98 98 Oximetry - Reevaluation(s) Reevaluation #1: 12/31/23 14:55 Records reviewed (Troy Jain) Reevaluation #2: 12/31/23 14:55 Patient was unchanged (Troy Jain) Reevaluation #3: 12/31/23 14:55 Results and questions answered (Troy Jain) Reevaluation #4: Was pt. sent in by a medical professional or institution (, PA, [employer], urgent care, hospital, or [place] health care facility...) When possible be specific @ -no Did you speak to anyone other than the patient for history (EMS, parent, family, police, friend...)? What history was obtained from this source @ -no Did you review nursing and triage notes (agree or disagree)? Why? @ -agree Are old charts reviewed (outside hosp., previous admission, EMS record, old EKG, old radiological studies, urgent care reports/EKG's, [place] health care facility records)? Report findings @ -yes Differential Diagnosis (chest pain, altered mental status, abdominal pain women, abdominal pain men, vaginal bleeding, weakness, fever, dyspnea, syncope, headache, dizziness, GI bleed, back pain, seizure, CVA, palpatations, mental health, musculoskeletal)? @ -prior EKG interpreted by me (3pts min.). @ -no X-rays interpreted by me (1pt min.). @ -yes negative for acute disease CT interpreted by me (1pt min.). @ -no U/S interpreted by me (1pt. min.). @ -no What testing was considered but not performed or refused? (CT, X-rays, U/S, labs)? Why? @ -none What meds were considered but not given or refused? Why? @ -none Did you discuss the management of the patient with other professionals (professionals i.e. , PA, [employer], lab, RT, psych nurse, social science professor, dairy husbandry teacher, teacher, hospital chief financial officer, pillowcase cutter)? Give summary @ -no Was smoking cessation discussed for >3mins.? @ -no Were there social determinants of health that impacted care today? How? (Homelessness, low income, unemployed, alcoholism, drug addiction, transportation, low edu. Level, literacy, decrease access to med. care, penitentiary, rehab)? @ -none Was there de-escalation of care discussed even if they declined (Discuss DNR or withdrawal of care, Hospice)? DNR status @ -no What co-morbidities impacted this encounter? (DM, HTN, Smoking, COPD, CAD, Cancer, CVA, ARF, Chemo, Hep., AIDS, mental health diagnosis, sleep apnea, morbid obesity)? @ -none Was patient admitted / discharged? Hospital course, mention meds given and route, prescriptions, significant lab abnormalities, going to OR and other pertinent info. @ - 49-year-old male to ER for a couple days of finger pain while playing catch, patient does have finger pain and swelling although no significant findings of fracture or dislocation. Patient likely had dislocated and relocated digit, patient has no other complaints currently can be discharged home Discharge Was critical care preformed (if so, how long)? @ -no Undiagnosed new problem with uncertain prognosis? @ -no Drug Therapy requiring intensive monitoring for toxicity (Heparin, Nitro, Insulin, Cardizem)? @ -no Were any procedures done? @ -no Diagnosis/sy finger sprain, finger pain mptom? @ - Acute, or Chronic, or Acute on Chronic? @ -Acute Uncomplicated (without systemic symptoms) or Complicated (systemic symptoms)? @ -Complicated Side effects of treatment? @ -no Exacerbation, Progression, or Severe Exacerbation? @ -exacerbation Poses a threat to life or bodily function? How? (Chest pain, USA, MD, pneumonia, PE, COPD, DKA, ARF, appy, cholecystitis, CVA, Diverticulitis, Homicidal, Suic idal, threat to staff... and all critical care pts) @ -no (Troy Jain) - Consultations Consultation #1: spoke w Dr Magaña who agrees to admit this patient (Troy Jain) Medical Decision Making <Taryn Scott - Last Filed: 12/31/23 10:58> - Radiology Data Radiology results: report reviewed (XR Right tib-fib negative for acute disease), image reviewed <Troy Jain - Last Filed: 12/31/23 15:18> - Medical Decision Making I performed the QuickNote portion of this chart. Signed Taryn Scott PA-C. (Taryn Scott) 83 female found to have right lower extremity hematoma. This was debrided here in the emergency department patient began to feel uncomfortable with procedure secondary to possibility of infection refused to have further debrided and here in the ER and will and speak with To her patient will be admitted for vascular surgery consultation (Troy Jain) Disposition <Taryn Scott - Last Filed: 12/31/23 10:58> Is patient prescribed a controlled substance at d/c from ED?: No Time of Disposition: 14:00 <Troy Jain - Last Filed: 12/31/23 15:18> Clinical Impression: Hematoma of right lower leg, Cellulitis of right leg Disposition: ADMITTED IP TO THIS HOSP Condition: Fair
--- NOTE | 2023-12-31 13:31 | XR ---
EXAMINATION TYPE: XR tibia fibula RT DATE OF EXAM: 12/31/2023 11:27 AM CLINICAL INDICATION:Female, 83 years old with history of Injury; COMPARISON: 10/07/2011. TECHNIQUE: XR tibia fibula RT; tibia/fibula was examined in AP and lateral projections. FINDINGS: Soft tissue defect in the area of concern. No evidence for osseous erosion. Total knee arth roplasty changes appear intact. No evidence of any acute osseous pathology, joint dislocation, or sof t tissue swelling is noted. IMPRESSION: 1. No evidence of acute fracture. 2. No evidence for osseous erosion. 3. Total knee arthroplasty changes which appear intact.
[2023-12-31] MEDS ORDERED: NALOXONE 0.4 MG/ML 1 ML VIAL IV PRN (14:51)
[2023-12-31] MEDS ORDERED: MORPHINE SULFATE 4 MG/ML SYRINGE IV PRN (14:51)
[2023-12-31] MEDS ORDERED: ONDANSETRON 4 MG/2 ML VIAL IVP PRN (14:51)
[2023-12-31] MEDS: SODIUM CHLORIDE 0.9% 1,000 ML IV SCH (15:46)
[2023-12-31] MEDS: ACETAMINOPHEN TAB 325 MG TAB PO PRN (17:56)
[2024-01-01] MEDS: LOSARTAN 50 MG TAB PO SCH (06:05)
[2024-01-01] MEDS: VIT A,C & E-LUTEIN-MINERALS 1 EACH TAB PO SCH (08:53)
[2024-01-01] MEDS: carvediloL 12.5 MG TAB PO SCH (08:53)
[2024-01-01] MEDS: ATORVASTATIN 20 MG TAB PO SCH (08:54)
[2024-01-01] MEDS: CHOLECALCIFEROL 125 MCG (5000 IU) TABLET PO SCH (08:54)
[2024-01-01] MEDS: FOLIC ACID 1 MG TAB PO SCH (08:54)
[2024-01-01] MEDS: CALCIUM CARB-VIT D 500 MG-5 MCG TAB PO SCH (08:54)
[2024-01-01] MEDS: SPIRONOLACTONE 25 MG TAB PO SCH (08:54)
[2024-01-01] MEDS: ASPIRIN 81 MG PO SCH (08:54)
[2024-01-01] MEDS: MULTIVITAMINS, THERA 1 EACH TAB PO SCH (08:54)
[2024-01-01 09:46] LABS: ALT 12 U/L (8-44); AST 15 U/L (13-35); Alkaline Phosphatase 89 U/L (41-126); Blood Urea Nitrogen 5.2 mg/dL (9.0-27.0); Calcium 8.9 mg/dL (8.7-10.3); Carbon Dioxide 22.5 mmol/L (21.6-31.8); Chloride 99 mmol/L (96-109); Globulin 2.1 g/dL (1.6-3.3); Glucose 97 mg/dL (70-110); Magnesium 1.5 mg/dL (1.5-2.4); Sodium 134 mmol/L (135-145); Total Bilirubin 0.5 mg/dL (0.3-1.2); Total Protein 6.1 g/dL (6.2-8.2)
[2024-01-01 09:47] LABS: Basophils # (A) 0.05 X 10*3/uL (0.00-0.10); Basophils % (A) 0.8 %; Eosinophils # (A) 0.13 X 10*3/uL (0.04-0.35); HCT 35.8 % (37.2-46.3); HGB 11.9 g/dL (12.0-15.0); Lymphocytes % (A) 41.7 %; MCH 33.5 pg (27.0-32.0); MCHC 33.2 g/dL (32.0-37.0); MCV 100.8 FL (80.0-97.0); Mean Platelet Volume 10.4 FL (9.5-12.2); Monocytes # (A) 0.85 X 10*3/uL (0.20-1.00); Monocytes % (A) 13.1 %; NRBC Per 100 WBC 0 X 10*3/uL (0.00-0.01); Neutrophils # (A) 2.74 X 10*3/uL (1.80-7.70); Neutrophils % (A) 42.2 %; Platelet Count 262 X 10*3/uL (140-440); RBC 3.55 X 10*6/uL (4.10-5.20); RDW 13.1 % (11.5-14.5); WBC 6.48 X 10*3/uL (4.50-10.00)
--- NOTE | 2024-01-01 12:40 | P.CONS ---
History of Present Illness - Reason for Consult Consult date: 01/01/24 wound care - History of Present Illness This is a 83-year-old being seen on [address] for a right lower extremity hematoma. Patient had the area evacuated in the ER however she continues to have significant amount of eschar and necrotic tissue present. Edema is noted to the site. Review Of Systems: Constitutional: No fever, no chills, no night sweats. No weight change. No weakness, fatigue or lethargy. No daytime sleepiness. Integumentary:reports wounds, no lesions. No rash or pruritus. No unusual bruising. No change in hair or nails. Physical exam: General Appearance: Alert, cooperative, no distress, appears stated age. Skin: See HPI all other Skin color, texture, tugor normal, no rashes or lesions. Neurologic: Alert oriented x3 Assessment: 1. Nonhealing ulceration with fat layer exposure right lower extremity 2. Hematoma Plan: 1.Apply 1/2 strength hydrogen perioxide and normal saline. Flush the site. Apply wet to dry dressing to site and wrap with tawny wrap. Patient would like home care. Plan is to see the patient early next week or the week after for a wound care appointment. Thank you for the consultation any questions please contact the wound care center DNP note has been reviewed and discussed with Dr. Brown and the impression and plan of care has been directed as dictated. Past Medical History Past Medical History: Cancer, Hypertension, Skin Disorder Additional Past Medical History / Comment(s): SKIN CANCER, has a cold sore on lip History of Any Multi-Drug Resistant Organisms: None Reported Past Surgical History: Joint Replacement, Orthopedic Surgery, Tubal Ligation Additional Past Surgical History / Comment(s): SURGERY FOR SKIN CANCER-LEG, HIP ORIF, femur fx, bilateral knees replaced Past Anesthesia/Blood Transfusion Reactions: No Reported Reaction Past Psychological History: No Psychological Hx Reported Smoking Status: Never smoker Past Alcohol Use History: Daily Past Drug Use History: None Reported Medications and Allergies Home Medications Medication Instructions Recorded Confirmed Type Aspirin 81 mg PO DAILY 12/07/13 12/31/23 History Multivitamin/Iron/Folic Acid 1 tab PO DAILY 12/07/13 12/31/23 History [Centrum Complete Multivit Tab] Calcium Carbonate/Vitamin D3 1 tab PO BID 01/05/14 12/31/23 History [Caltrate 600 + D Tablet] Folic Acid 800 mg PO DAILY 01/06/14 12/31/23 History Losartan Potassium 100 mg PO QAM 06/20/14 12/31/23 History Alendronate Sodium [Fosamax] 70 mg PO GRAHAM 12/31/23 12/31/23 History Cholecalciferol [Vitamin D3 (125 125 mcg PO DAILY 12/31/23 12/31/23 History Mcg = 5000 Iu)] Rosuvastatin [Crestor] 10 mg PO DAILY 12/31/23 12/31/23 History Spironolactone 12.5 mg PO DAILY 12/31/23 12/31/23 History Vit C/E/Zn/Coppr/Lutein/Zeaxan 1 cap PO DAILY 12/31/23 12/31/23 History [Preservision Areds 2 Softgel] carvediloL [Coreg] 37.5 mg PO BID 12/31/23 12/31/23 History Allergies Allergy/AdvReac Type Severity Reaction Status Date / Time codeine Allergy Rash/Hives Verified 12/31/23 15:30 hydrocodone bitartrate Allergy Itching Verified 12/31/23 15:30 [From [place]] metoprolol Allergy Rash/Hives Verified 12/31/23 15:30 Sulfa (Sulfonamide AdvReac LIGHT Verified 12/31/23 15:30 Antibiotics) HEADED, VERTIGO sulfamethoxazole AdvReac LIGHT Verified 12/31/23 15:30 [From Bactrim] HEADED, VERTIGO tramadol AdvReac VERTIGO Verified 12/31/23 15:30 trimethoprim [From Bactrim] AdvReac LIGHT Verified 12/31/23 15:30 HEADED, VERTIGO Physical Exam Vitals: Vital Signs Temp Pulse Pulse Pulse Resp BP BP 01/01/24 07:00 98.2 F 72 18 161/82 01/01/24 02:23 97.8 F 71 16 181/96 12/31/23 21:26 97.9 F 68 16 177/78 12/31/23 20:50 97.7 F 72 18 179/81 12/31/23 19:08 63 18 124/71 12/31/23 16:41 97.8 F 69 16 197/76 12/31/23 13:32 74 16 198/105 Pulse Ox 01/01/24 07:00 96 01/01/24 02:23 96 12/31/23 21:26 96 12/31/23 20:50 96 12/31/23 19:08 97 12/31/23 16:41 97 12/31/23 13:32 98 Intake and Output 12/31/23 01/01/24 01/01/24 22:59 06:59 14:59 Other: # Voids 1 3 Weight 63.503 kg Results CBC & Chem 7: 01/01/24 04:28 01/01/24 04:28 Labs: Abnormal Lab Results - Last 24 Hours (Table) 01/01/24 01/01/24 Range/Units 04:28 04:28 RBC 3.55 L (4.10-5.20) X 10*6/uL Hgb 11.9 L (12.0-15.0) g/dL Hct 35.8 L (37.2-46.3) % MCV 100.8 H (80.0-97.0) FL MCH 33.5 H (27.0-32.0) pg Sodium 134 L (135-145) mmol/L Anion Gap 12.50 H (4.00-12.00) mmol/L BUN 5.2 L (9.0-27.0) mg/dL Creatinine 0.5 L (0.6-1.5) mg/dL BUN/Creatinine Ratio 10.40 L (12.00-20.00) Ratio Total Protein 6.1 L (6.2-8.2) g/dL Assessment and Plan (1) Non-pressure ulcer of right lower extremity with fat layer exposed Current Visit: Yes Status: Acute Code(s): L97.912 - NON-PRS CHR ULC UNSP PRT OF R LOW LEG W FAT LAYER EXPOSED SNOMED Code(s): 83723425 (2) Hematoma of right lower leg Current Visit: Yes Status: Acute Code(s): S80.11XA - CONTUSION OF RIGHT LOWER LEG, INITIAL ENCOUNTER SNOMED Code(s): 07309157429622648
[2024-01-01] MEDS: LIDOCAINE 1% INJ 10MG/ML (20 ML MDV) SQ STA (13:34)
--- NOTE | 2024-01-01 15:02 | P.GSCN ---
History of Present Illness Consult date: 01/01/24 Reason for Consult: Right souza hematoma Requesting physician: Troy Jain History of present illness: This is a very pleasant 83-year-old female who presented to the emergency department yesterday after seeing her primary care physician for concerns of the hematoma on her leg that was felt needed to be drained. Apparently about 2 weeks ago patient was hit in the knee by a soccer ball. At that time she de veloped an instant bruising and some swelling. She had a small hematoma and went to [facility] to be seen. The did not believe that she needed any intervention. She continued to have swelling in that area with bruising and redness and went back to see her PCP. She does state there is some discomfort to that area and some numbness and tingling. She denies any anticoagulation, does take a aspirin 81 mg daily. Apparently while the patient was in the emergency department in the ER physician had started to attempt I&D evacuation of the hematoma however the patient felt uncomfortable because she was in the hallway and asked him to stop. Vascular surgery was consulted for further evaluation. Review of Systems A 14 point review systems was completed all pertinent positives and negatives as stated in the HPI. Past Medical History Past Medical History: Cancer, Hypertension, Skin Disorder Additional Past Medical History / Comment(s): SKIN CANCER, has a cold sore on lip History of Any Multi-Drug Resistant Organisms: None Reported Past Surgical History: Joint Replacement, Orthopedic Surgery, Tubal Ligation Additional Past Surgical History / Comment(s): SURGERY FOR SKIN CANCER-LEG, HIP ORIF, femur fx, bilateral knees replaced Past Anesthesia/Blood Transfusion Reactions: No Reported Reaction Past Psychological History: No Psychological Hx Reported Smoking Status: Never smoker Past Alcohol Use History: Daily Past Drug Use History: None Reported Medications and Allergies Home Medications Medication Instructions Recorded Confirmed Type Aspirin 81 mg PO DAILY 12/07/13 12/31/23 History Multivitamin/Iron/Folic Acid 1 tab PO DAILY 12/07/13 12/31/23 History [Centrum Complete Multivit Tab] Calcium Carbonate/Vitamin D3 1 tab PO BID 01/05/14 12/31/23 History [Caltrate 600 Plus D3 Tablet] Folic Acid 800 mg PO DAILY 01/06/14 12/31/23 History Losartan Potassium 100 mg PO QAM 06/20/14 12/31/23 History Alendronate Sodium [Fosamax] 70 mg PO GRAHAM 12/31/23 12/31/23 History Cholecalciferol [Vitamin D3 (125 125 mcg PO DAILY 12/31/23 12/31/23 History Mcg = 5000 Iu)] Rosuvastatin [Crestor] 10 mg PO DAILY 12/31/23 12/31/23 History Spironolactone 12.5 mg PO DAILY 12/31/23 12/31/23 History Vit C/E/Zn/Coppr/Lutein/Zeaxan 1 cap PO DAILY 12/31/23 12/31/23 History [Preservision Areds 2 Softgel] carvediloL [Coreg] 37.5 mg PO BID 12/31/23 12/31/23 History Cephalexin [Keflex] 500 mg PO TID 1 Days #30 cap 01/01/24 Rx Allergies Allergy/AdvReac Type Severity Reaction Status Date / Time codeine Allergy Rash/Hives Verified 12/31/23 15:30 hydrocodone bitartrate Allergy Itching Verified 12/31/23 15:30 [From [place]] metoprolol Allergy Rash/Hives Verified 12/31/23 15:30 Sulfa (Sulfonamide AdvReac LIGHT Verified 12/31/23 15:30 Antibiotics) HEADED, VERTIGO sulfamethoxazole AdvReac LIGHT Verified 12/31/23 15:30 [From Bactrim] HEADED, VERTIGO tramadol AdvReac VERTIGO Verified 12/31/23 15:30 trimethoprim [From Bactrim] AdvReac LIGHT Verified 12/31/23 15:30 HEADED, VERTIGO Surgical - Exam Vital Signs Temp Pulse Resp BP Pulse Ox 98 F 68 18 181/87 98 12/31/23 10:58 12/31/23 10:58 12/31/23 10:58 12/31/23 10:58 12/31/23 10:58 General appearance: The patient is alert, oriented, appears in no acute distress. HET: Head is normocephalic and atraumatic. Neck: Supple. Heart: Regular. Lungs: Equal expansion, normal respiratory effort. Abdomen: Soft, nondistended. Extremities: Bilateral lower extremities with nonpitting edema. Right souza with evacuated hematoma with 7 x 2-1/2 cm wound with eschar and necrotic tissue present. Some mild erythema surrounding. Palpable bilateral pedal pulses. Neurological: No focal deficits. Strength and sensation are grossly intact. Results - Labs 01/01/24 04:28 01/01/24 04:28 Abnormal Lab Results - Last 24 Hours (Table) 01/01/24 01/01/24 Range/Units 04:28 04:28 RBC 3.55 L (4.10-5.20) X 10*6/uL Hgb 11.9 L (12.0-15.0) g/dL Hct 35.8 L (37.2-46.3) % MCV 100.8 H (80.0-97.0) FL MCH 33.5 H (27.0-32.0) pg Sodium 134 L (135-145) mmol/L Anion Gap 12.50 H (4.00-12.00) mmol/L BUN 5.2 L (9.0-27.0) mg/dL Creatinine 0.5 L (0.6-1.5) mg/dL BUN/Creatinine Ratio 10.40 L (12.00-20.00) Ratio Total Protein 6.1 L (6.2-8.2) g/dL Diabetes panel 01/01/24 Range/Units 04:28 Sodium 134 L (135-145) mmol/L Potassium 4.0 (3.5-5.5) mmol/L Chloride 99 (96-109) mmol/L Carbon Dioxide 22.5 (21.6-31.8) mmol/L BUN 5.2 L (9.0-27.0) mg/dL Creatinine 0.5 L (0.6-1.5) mg/dL Glucose 97 (70-110) mg/dL Calcium 8.9 (8.7-10.3) mg/dL AST 15 (13-35) U/L ALT 12 (8-44) U/L Alkaline Phosphatase 89 (41-126) U/L Total Protein 6.1 L (6.2-8.2) g/dL Albumin 4.0 (3.8-4.9) g/dL Calcium panel 01/01/24 Range/Units 04:28 Calcium 8.9 (8.7-10.3) mg/dL Phosphorus 3.0 (2.4-5.1) mg/dL Albumin 4.0 (3.8-4.9) g/dL Pituitary panel 01/01/24 Range/Units 04:28 Sodium 134 L (135-145) mmol/L Potassium 4.0 (3.5-5.5) mmol/L Chloride 99 (96-109) mmol/L Carbon Dioxide 22.5 (21.6-31.8) mmol/L BUN 5.2 L (9.0-27.0) mg/dL Creatinine 0.5 L (0.6-1.5) mg/dL Glucose 97 (70-110) mg/dL Calcium 8.9 (8.7-10.3) mg/dL Adrenal panel 01/01/24 Range/Units 04:28 Sodium 134 L (135-145) mmol/L Potassium 4.0 (3.5-5.5) mmol/L Chloride 99 (96-109) mmol/L Carbon Dioxide 22.5 (21.6-31.8) mmol/L BUN 5.2 L (9.0-27.0) mg/dL Creatinine 0.5 L (0.6-1.5) mg/dL Glucose 97 (70-110) mg/dL Calcium 8.9 (8.7-10.3) mg/dL Total Bilirubin 0.5 (0.3-1.2) mg/dL AST 15 (13-35) U/L ALT 12 (8-44) U/L Alkaline Phosphatase 89 (41-126) U/L Total Protein 6.1 L (6.2-8.2) g/dL Albumin 4.0 (3.8-4.9) g/dL Assessment and Plan Assessment: 1. Right lower extremity hematoma resulting from injury status post evacuation 2. Ulceration with fat layer exposed right lower extremity Plan: 1. There is no indication for any I&D of hematoma 2. Consult to wound care for local wound care, outpatient wound care will be needed 3. May follow-up with vascular surgery for follow-up with vascular surgery for further evaluation of possible venous insufficiency Thank you for this consultation, patient is cleared from vascular surgery for discharge. The impression and plan of care has been dictated as directed. I performed a history and examination of this patient, discussed the same with the dictator. I agree with the dictator's note ,documented as a scribe. Any additional findings or plans will be noted.
[2024-01-01 15:46] VITALS: BP 112/67; PULSE 69; RESP 16; TEMP 97.6
--- NOTE | 2024-01-01 18:17 | P.HPIM ---
History of Present Illness H&P Date: 01/01/24 Chief Complaint: Right leg hematoma. This is a history and physical as well as discharge summary. 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, history of osteopenia, patient presented to the office because of an increased hematoma to the right lower extremity after she was hit by a soccer ball, about a week ago she went to [facility] for evaluation, she did not receive any treatment at that time, she came to the office, and she was found to have an increased hematoma to the right souza at the lower aspect, I recommended for the patient to have a vascular surgery look at her leg to have an I&D as the patient will need to have a wound care after that, but the patient could not get into the vascular surgery office until the the 18th of this month, so she was directed by my nurse practitioner to go to the ER for evaluation and possible debridement, and follow-up as an outpatient, patient was in the ER, had minimal debridement in the ER, patient was upset she went to see the vascular surgeon, she was admitted to the hospital for evaluation and she was started on her medication, she was seen in consultation by the wound care nurse as well as by the vascular surgery, who recommended for the patient to follow-up as an outpatient in the wound care center. No intervention will be done today. REVIEW OF SYSTEMS: Constitutional: No documented fever, no chills, no night sweats. No weight change. No weakness, fatigue or lethargy. No daytime sleepiness. EENT: No headache. No blurred vision or double vision, no loss of vision. No loss of Hearing, no ringing in the ears, no dizziness. No nasal drainage or congestion. No epistaxis. No sore throat. Lungs: No shortness of breath, no cough, no sputum production. No wheezing. Reports dyspnea with activity. Cardiovascular: No chest pain, no lower extremity edema. No palpitations. No paroxysmal nocturnal dyspnea. No orthopnea. No lightheadedness or dizziness. No syncopal episodes. Abdominal: Reports no abdominal pain. No nausea, vomiting. No diarrhea. No constipation. No bloody or tarry stools reports loss of appetite. Genitourinary: No dysuria, increased frequency, urgency. No urinary retention. Musculoskeletal: No myalgias. No muscle weakness, no gait dysfunction, no frequent falls. No back pain. No neck pain. Integumentary: right leg with denuded hemorrhagic blister elongated with black eschar partially excised, no lesions. No rash or pruritus. No unusual bruising. No change in hair or nails. Neurologic: No aphasia. No facial droop. No change in mentation. No head injury. No headache. No paralysis. No paresthesia. Psychiatric: No depression. No anxiety. No mood swings. Endocrine: No abnormal blood sugars. No weight change. PAST MEDICAL HISTORY: Hypertension and hypertensive cardiovascular disease. Hyperlipidemia. Osteoarthritis. Osteoporosis spondylosis of the lumbar spine and thoracic spine. Skin cancer. Mild Aortic valve stenosis PAST SURGICAL HISTORY: Bilateral total knee arthroplasty. Right hip IM nailing. SOCIAL HISTORY: Patient is a lifelong non-smoker, she drinks alcohol socially, she denies any drug use or abuse, she lives with her . FAMILY HISTORY: Patient did not know much about her father, her mother at age of 90 she had history of hypertension hyperlipidemia, she from old age, patient had 5 brothers one of her brothers from cardiac arrest had history of atrial fibrillation hypertension and chronic kidney disease, patient had 1 sister who as well patient has 2 daughters one of them with non-Hodgkin lymphoma and and she is recently diagnosed with bladder cancer. PHYSICAL EXAMINATION: General: This is a an 83-year-old female who is laying down in bed in no apparent distress. HEENT: Head is atraumatic, normocephalic, pupils were equal round reactive to light and recommendation, extraocular muscle movement were intact, sclera nonicteric, conjunctivae were pale, mucous membranes of the mouth are somewhat dry. Neck: Supple, no JVP, normal carotid upstroke bilaterally, no lymphadenopathy. Chest: Decreased breath sounds at the bases, few rhonchi, no expiratory wheezes, no chest wall tenderness, no intercostal retractions. Heart: First heart sound is normal, second heart sound is normal there is systolic ejection murmur 2/6 located in the left sternal border. Abdomen: Soft, nontender, nondistended, positive bowel sounds. Extremities: There is no edema no calf tenderness DP +2 bilaterally, there is an denuded hemorrhagic blister from the lower aspect of the right leg with an eschar on top of it. Neurologic examination: Patient is awake alert and oriented x3, cranial nerves II-12 appear grossly intact, muscle power were 5 out of 5 in upper extremities and 5 out of 5 in bilateral lower extremities, deep tendon reflexes normal bilaterally. ASSESSMENT AND PLAN: 1. Right lower extremity hematoma status post I&D that was done in the emergency department. Patient was seen and evaluated by vascular surgery as well as by the wound clinic, patient will be started on oral antibiotic in the form of cephalexin 500 mg orally 3 times every day for 10 days, she will follow-up with us as an outpatient in the office in a week from now, she will follow-up with vascular surgery as well as the wound clinic on a regular basis, until the wound is healed. No need for any further intervention at this point in time. 2. Hypertension and hypertensive cardiovascular disease. Continue patient on carvedilol 37.5 mg orally twice every day, continue patient on losartan 100 mg orally once every day, continue spironolactone 12.5 mg orally once every day. Monitor the patient blood pressure very closely. 3. Mixed hyperlipidemia. Continue patient on rosuvastatin 10 mg once every day, monitor the patient lipid panel, keep LDL 55-70. 4. Osteopenia. Continue patient on alendronate 70 mg once every week, continue calcium 1200 mg once every day, continue vitamin D3 2000 unit once every day. Patient is up-to-date on her DEXA scan. 5. Vitamin D deficiency. Continue vitamin D3 2000 units once every day. 6. Osteoarthritis. Continue current pain management. 7. DVT prophylaxis. Early ambulation. 8. GI prophylaxis. Not needed. 9. Patient is medically stable to be discharged home she will follow-up with vascular surgery as an outpatient, she will follow-up with wound care healing center at [facility], I will see the patient in the office in a week from now. Past Medical History Past Medical History: Cancer, Hypertension, Skin Disorder Additional Past Medical History / Comment(s): SKIN CANCER, has a cold sore on lip History of Any Multi-Drug Resistant Organisms: None Reported Past Surgical History: Joint Replacement, Orthopedic Surgery, Tubal Ligation Additional Past Surgical History / Comment(s): SURGERY FOR SKIN CANCER-LEG, HIP ORIF, femur fx, bilateral knees replaced Past Anesthesia/Blood Transfusion Reactions: No Reported Reaction Past Psychological History: No Psychological Hx Reported Smoking Status: Never smoker Past Alcohol Use History: Daily Past Drug Use History: None Reported Medications and Allergies Home Medications Medication Instructions Recorded Confirmed Type Aspirin 81 mg PO DAILY 12/07/13 12/31/23 History Multivitamin/Iron/Folic Acid 1 tab PO DAILY 12/07/13 12/31/23 History [Centrum Complete Multivit Tab] Calcium Carbonate/Vitamin D3 1 tab PO BID 01/05/14 12/31/23 History [Caltrate 600 Plus D3 Tablet] Folic Acid 800 mg PO DAILY 01/06/14 12/31/23 History Losartan Potassium 100 mg PO QAM 06/20/14 12/31/23 History Alendronate Sodium [Fosamax] 70 mg PO GRAHAM 12/31/23 12/31/23 History Cholecalciferol [Vitamin D3 (125 125 mcg PO DAILY 12/31/23 12/31/23 History Mcg = 5000 Iu)] Rosuvastatin [Crestor] 10 mg PO DAILY 12/31/23 12/31/23 History Spironolactone 12.5 mg PO DAILY 12/31/23 12/31/23 History Vit C/E/Zn/Coppr/Lutein/Zeaxan 1 cap PO DAILY 12/31/23 12/31/23 History [Preservision Areds 2 Softgel] carvediloL [Coreg] 37.5 mg PO BID 12/31/23 12/31/23 History Cephalexin [Keflex] 500 mg PO TID 1 Days #30 cap 01/01/24 Rx Allergies Allergy/AdvReac Type Severity Reaction Status Date / Time codeine Allergy Rash/Hives Verified 12/31/23 15:30 hydrocodone bitartrate Allergy Itching Verified 12/31/23 15:30 [From [place]] metoprolol Allergy Rash/Hives Verified 12/31/23 15:30 Sulfa (Sulfonamide AdvReac LIGHT Verified 12/31/23 15:30 Antibiotics) HEADED, VERTIGO sulfamethoxazole AdvReac LIGHT Verified 12/31/23 15:30 [From Bactrim] HEADED, VERTIGO tramadol AdvReac VERTIGO Verified 12/31/23 15:30 trimethoprim [From Bactrim] AdvReac LIGHT Verified 12/31/23 15:30 HEADED, VERTIGO Physical Exam Vitals: Vital Signs Temp Pulse Pulse Pulse Resp BP BP 01/01/24 15:00 97.6 F 69 16 112/67 01/01/24 07:00 98.2 F 72 18 161/82 01/01/24 02:23 97.8 F 71 16 181/96 12/31/23 21:26 97.9 F 68 16 177/78 12/31/23 20:50 97.7 F 72 18 179/81 12/31/23 19:08 63 18 124/71 Pulse Ox 01/01/24 15:00 96 01/01/24 07:00 96 01/01/24 02:23 96 12/31/23 21:26 96 12/31/23 20:50 96 12/31/23 19:08 97 Intake and Output 01/01/24 01/01/24 01/01/24 06:59 14:59 22:59 Intake Total 118 Balance 118 Intake: Oral 118 Other: # Voids 3 2 Results CBC & Chem 7: 01/01/24 04:28 01/01/24 04:28 Labs: Abnormal Lab Results - Last 24 Hours (Table) 01/01/24 01/01/24 Range/Units 04:28 04:28 RBC 3.55 L (4.10-5.20) X 10*6/uL Hgb 11.9 L (12.0-15.0) g/dL Hct 35.8 L (37.2-46.3) % MCV 100.8 H (80.0-97.0) FL MCH 33.5 H (27.0-32.0) pg Sodium 134 L (135-145) mmol/L Anion Gap 12.50 H (4.00-12.00) mmol/L BUN 5.2 L (9.0-27.0) mg/dL Creatinine 0.5 L (0.6-1.5) mg/dL BUN/Creatinine Ratio 10.40 L (12.00-20.00) Ratio Total Protein 6.1 L (6.2-8.2) g/dL Thrombosis Risk Factor Assmnt - Choose All That Apply Any of the Below Risk Factors Present?: No Other Risk Factors: Yes Each Risk Factor Represents 3 Points: Age 75 years or older Other congenital or acquired thrombophilia - If yes, enter type in comment: No Thrombosis Risk Factor Assessment Total Risk Factor Score: 3 Thrombosis Risk Factor Assessment Level: Moderate Risk
[2024-01-04] MEDS ORDERED: NON FORMULARY DRUG (Alendronate Sodium [Fosamax] 70 MG Tablet) PO SCH (22:52)
== END 2024-01-01 15:20 | disposition home health service (06) ==
LOC: EC 10:42 → 6NMEDSUR 14:53
PROVIDERS: ADMIT Internal Medicine; ATTEND Internal Medicine
DX: M79.81 Nontraumatic hematoma of soft tissue (principal); L03.115 Cellulitis of right lower limb; L97.912 Non-pressure chronic ulcer of unspecified part of right lower leg with fat layer exposed; I11.9 Hypertensive heart disease without heart failure; E78.2 Mixed hyperlipidemia; M19.90 Unspecified osteoarthritis, unspecified site; M81.0 Age-related osteoporosis without current pathological fracture; M47.816 Spondylosis without myelopathy or radiculopathy, lumbar region; M47.814 Spondylosis without myelopathy or radiculopathy, thoracic region; I35.0 Nonrheumatic aortic (valve) stenosis; M85.80 Other specified disorders of bone density and structure, unspecified site; E55.9 Vitamin D deficiency, unspecified; Z85.828 Personal history of other malignant neoplasm of skin; Z79.82 Long term (current) use of aspirin; Z79.83 Long term (current) use of bisphosphonates; Z79.899 Other long term (current) drug therapy; Z88.2 Allergy status to sulfonamides; Z88.5 Allergy status to narcotic agent
CPT/HCPCS: 96366 ×2; 96365; 99284; 80053; 83735; 84100; 85025; 87040; 73590; G0378 ×2; J0696 ×2

== ENCOUNTER 2024-02-02 16:39 | Inpatient (IN) | payer MEDICARE ==
[2024-02-02 17:39] LABS: Basophils % (A) 0 %; Eosinophils # (A) 0.1 k/uL (0-0.7); Eosinophils % (A) 2 %; HCT 26.6 % (34.0-46.0); HGB 9.9 gm/dL (11.4-16.0); Lymphocytes # (A) 2.5 k/uL (1.0-4.8); Lymphocytes % (A) 34 %; MCH 38.7 pg (25.0-35.0); MCHC 37.4 g/dL (31.0-37.0); MCV 103.7 fL (80.0-100.0); Macrocytosis Slight; Mean Platelet Volume 8.8; Monocytes # (A) 0.9 k/uL (0-1.0); Monocytes % (A) 12 %; Neutrophils # (A) 3.5 k/uL (1.3-7.7); Neutrophils % (A) 48 %; Platelet Count 240 k/uL (150-450); RBC 2.56 m/uL (3.80-5.40); RDW 12.3 % (11.5-15.5); WBC 7.2 k/uL (3.8-10.6)
[2024-02-02 17:41] LABS: INR 1.1 (<1.2); Partial Thromboplastin Time 24.6 sec (22.0-30.0); Prothrombin Time 11.4 sec (10.0-12.5)
[2024-02-02] MEDS ORDERED: NALOXONE 0.4 MG/ML 1 ML VIAL IV PRN (18:04)
--- NOTE | 2024-02-02 18:04 | ED ---
General Adult HPI - General Chief complaint: Weakness Stated complaint: cdiff Time Seen by Provider: 02/02/24 16:44 Source: patient, family, RN/MD, RN notes reviewed Mode of arrival: ambulatory Limitations: no limitations - History of Present Illness Initial comments: Patient is a pleasant 83-year-old female present to the emergency department with concern for C. difficile. Patient was diagnosed with this weeks ago. Patient was admitted mid December in [facility]. Patient was discharged however and feels no better. Patient is having persistent diarrhea. Some decreased oral intake. Some abdominal cramping. No fevers. Patient did have hyponatremia when she was previously admitted. Patient was sent over by Dr. Back. - Related Data Home Medications Medication Instructions Recorded Confirmed Aspirin 81 mg PO DAILY 12/07/13 12/31/23 Multivitamin/Iron/Folic Acid 1 tab PO DAILY 12/07/13 12/31/23 [Centrum Complete Multivit Tab] Calcium Carbonate/Vitamin D3 1 tab PO BID 01/05/14 12/31/23 [Caltrate 600 Plus D3 Tablet] Folic Acid 800 mg PO DAILY 01/06/14 12/31/23 Losartan Potassium 100 mg PO QAM 06/20/14 12/31/23 Alendronate Sodium [Fosamax] 70 mg PO GRAHAM 12/31/23 12/31/23 Cholecalciferol [Vitamin D3 (125 125 mcg PO DAILY 12/31/23 12/31/23 Mcg = 5000 Iu)] Rosuvastatin [Crestor] 10 mg PO DAILY 12/31/23 12/31/23 Spironolactone 12.5 mg PO DAILY 12/31/23 12/31/23 Vit C/E/Zn/Coppr/Lutein/Zeaxan 1 cap PO DAILY 12/31/23 12/31/23 [Preservision Areds 2 Softgel] carvediloL [Coreg] 37.5 mg PO BID 12/31/23 12/31/23 Previous Rx's Medication Instructions Recorded Cephalexin [Keflex] 500 mg PO TID 1 Days #30 cap 01/01/24 Allergies Allergy/AdvReac Type Severity Reaction Status Date / Time codeine Allergy Rash/Hives Verified 02/02/24 16:46 hydrocodone bitartrate Allergy Itching Verified 02/02/24 16:46 [From [place]] metoprolol Allergy Rash/Hives Verified 02/02/24 16:46 Sulfa (Sulfonamide AdvReac LIGHT Verified 02/02/24 16:46 Antibiotics) HEADED, VERTIGO sulfamethoxazole AdvReac LIGHT Verified 02/02/24 16:46 [From Bactrim] HEADED, VERTIGO tramadol AdvReac VERTIGO Verified 02/02/24 16:46 trimethoprim [From Bactrim] AdvReac LIGHT Verified 02/02/24 16:46 HEADED, VERTIGO Review of Systems ROS Statement: Those systems with pertinent positive or pertinent negative responses have been documented in the HPI. ROS Other: All systems not noted in ROS Statement are negative. Constitutional: Denies: fever Eyes: Denies: eye pain ENT: Denies: ear pain Respiratory: Denies: dyspnea Cardiovascular: Denies: chest pain Endocrine: Reports: fatigue Gastrointestinal: Reports: as per HPI, diarrhea Past Medical History Past Medical History: Cancer, Hypertension, Skin Disorder Additional Past Medical History / Comment(s): SKIN CANCER, has a cold sore on lip. c diff. History of Any Multi-Drug Resistant Organisms: None Reported Past Surgical History: Joint Replacement, Orthopedic Surgery, Tubal Ligation Additional Past Surgical History / Comment(s): SURGERY FOR SKIN CANCER-LEG, HIP ORIF, femur fx, bilateral knees replaced Past Anesthesia/Blood Transfusion Reactions: No Reported Reaction Past Psychological History: No Psychological Hx Reported Smoking Status: Never smoker Past Alcohol Use History: Daily Past Drug Use History: None Reported General Exam Limitations: no limitations General appearance: alert, in no apparent distress Head exam: Present: normocephalic Eye exam: Present: normal appearance ENT exam: Present: mucous membranes moist Neck exam: Present: normal inspection Respiratory exam: Present: normal lung sounds bilaterally Cardiovascular Exam: Present: regular rate, normal rhythm GI/Abdominal exam: Present: soft. Absent: distended, tenderness Extremities exam: Present: normal inspection Neurological exam: Present: alert Psychiatric exam: Present: normal affect, normal mood Skin exam: Present: normal color Course Vital Signs 02/02/24 16:42 Temperature 97.6 F Pulse Rate 84 Respiratory 20 Rate Blood Pressure 117/75 O2 Sat by Pulse 99 Oximetry EKG Findings - EKG Results: EKG: interpreted by ERMD (Atrial rhythm with a rate of 86. Left axis.), normal QRS, normal ST/T Medical Decision Making - Medical Decision Making Was pt. sent in by a medical professional or institution (, MAGGIE, [facility]ANK MAKER, urgent care, hospital, or half-way...) When possible be specific @ -Patient was sent in by Dr. Back's office Did you speak to anyone other than the patient for history (EMS, parent, family, police, friend...)? What history was obtained from this source @ -I did speak with Dr. Magaña who provided history of previous admission Did you review nursing and triage notes (agree or disagree)? Why? @ -I reviewed and agree with nursing and triage notes Were old charts reviewed (outside hosp., previous admission, EMS record, old EKG, old radiological studies, urgent care reports/EKG's, half-way records)? Report findings @ -No old charts were reviewed Differential Diagnosis (chest pain, altered mental status, abdominal pain women, abdominal pain men, vaginal bleeding, weakness, fever, dyspnea, syncope, headache, dizziness, GI bleed, back pain, seizure, CVA, palpatations, mental health, musculoskeletal)? @ -Differential Abdominal Pain Women: Appendicitis, Cholecystitis, diverticulosis, ischemic bowel, pancreatitis, hepatitis, UTI, gastroenteritis, AAA, incarcerated hernia, bowel obstruction, constipation, inflammatory bowel, hepatitis, peptic ulcer disease, splenic infa rction, perforated viscus, vulvitis, ovarian torsion, PID, kidney stone, placenta abruption, this is not meant to be an all-inclusive list EKG interpreted by me (3pts min.). @ -As above X-rays interpreted by me (1pt min.). @ -None done CT interpreted by me (1pt min.). @ -None done U/S interpreted by me (1pt. min.). @ -None done What testing was considered but not performed or refused? (CT, X-rays, U/S, labs)? Why? @ -None What meds were considered but not given or refused? Why? @ -None Did you discuss the management of the patient with other professionals (professionals i.e. MAGGIE Hernandez, SHANK MAKER, lab, RT, psych nurse, elementary school social worker, industrial service technician, teacher, bomb squad officer, correctional case records supervisor)? Give summary @ -Dr. Magaña who would like his patient admitted Was smoking cessation discussed for >3mins.? @ -No Was critical care preformed (if so, how long)? @ -No Were there social determinants of health that impacted care today? How? (Homelessness, low income, unemployed, alcoholism, drug addiction, trans portation, low edu. Level, literacy, decrease access to med. care, senior living, rehab)? @ -No Was there de-escalation of care discussed even if they declined (Discuss DNR or withdrawal of care, Hospice)? DNR status @ -No What co-morbidities impacted this encounter? (DM, HTN, Smoking, COPD, CAD, Cancer, CVA, ARF, Chemo, Hep., AIDS, mental health diagnosis, sleep apnea, morbid obesity)? @ -Recent C. difficile Was patient admitted / discharged? Hospital course, mention meds given and route, prescriptions, significant lab abnormalities, going to OR and other pertinent info. @ -Patient updated on plan. Patient will be admitted. Admission orders written. Undiagnosed new problem with uncertain prognosis? @ -No Drug Therapy requiring intensive monitoring for toxicity (Heparin, Nitro, Insulin, Cardizem)? @ -No Were any procedures done? @ -No Diagnosis/symptom? @ -C. difficile, diarrhea Acute, or Chronic, or Acute on Chronic? @ -Acute on chronic, acute on chronic Uncomplicated (without systemic symptoms) or Complicated (systemic symptoms)? @ -Complicated with hyponatremia Side effects of treatment? @ -No Exacerbation, Progression, or Severe Exacerbation? @ -No Poses a threat to life or bodily function? How? (Chest pain, [place], [place], pneumonia, PE, COPD, DKA, ARF, appy, cholecystitis, CVA, Diverticulitis, Homicidal, Suicidal, threat to staff... and all critical care pts) @ -No - Lab Data Result diagrams: 02/02/24 16:57 02/02/24 16:57 Lab Results 02/02/24 02/02/24 02/02/24 Range/Units 16:57 16:57 16:57 WBC 7.2 (3.8-10.6) k/uL RBC 2.56 L (3.80-5.40) m/uL Hgb 9.9 L (11.4-16.0) gm/dL Hct 26.6 L (34.0-46.0) % MCV 103.7 H (80.0-100.0) fL MCH 38.7 H (25.0-35.0) pg MCHC 37.4 H (31.0-37.0) g/dL RDW 12.3 (11.5-15.5) % Plt Count 240 (150-450) k/uL MPV 8.8 Neutrophils % 48 % Lymphocytes % 34 % Monocytes % 12 % Eosinophils % 2 % Basophils % 0 % Neutrophils # 3.5 (1.3-7.7) k/uL Lymphocytes # 2.5 (1.0-4.8) k/uL Monocytes # 0.9 (0-1.0) k/uL Eosinophils # 0.1 (0-0.7) k/uL Basophils # 0.0 (0-0.2) k/uL Macrocytosis Slight PT 11.4 (10.0-12.5) sec INR 1.1 (<1.2) APTT 24.6 (22.0-30.0) sec Sodium 127 L (137-145) mmol/L Potassium 4.5 (3.5-5.1) mmol/L Chloride 96 L (98-107) mmol/L Carbon Dioxide 22 (22-30) mmol/L Anion Gap 9 mmol/L BUN 8 (7-17) mg/dL Creatinine 0.68 (0.52-1.04) mg/dL Est GFR (CKD-EPI)AfAm >90 (>60 ml/min/1.73 sqM) Est GFR (CKD-EPI)NonAf 82 (>60 ml/min/1.73 sqM) Glucose 107 H (74-99) mg/dL Plasma Lactic Acid Rickey (0.7-2.0) mmol/L Calcium 9.7 (8.4-10.2) mg/dL Phosphorus 3.9 (2.5-4.5) mg/dL Magnesium 1.2 L (1.6-2.3) mg/dL Total Bilirubin 0.7 (0.2-1.3) mg/dL AST 20 (14-36) U/L ALT 14 (4-34) U/L Alkaline Phosphatase 75 (38-126) U/L Troponin I (0.000-0.034) ng/mL Total Protein 6.2 L (6.3-8.2) g/dL Albumin 3.7 (3.5-5.0) g/dL 02/02/24 02/02/24 Range/Units 16:57 16:57 WBC (3.8-10.6) k/uL RBC (3.80-5.40) m/uL Hgb (11.4-16.0) gm/dL Hct (34.0-46.0) % MCV (80.0-100.0) fL MCH (25.0-35.0) pg MCHC (31.0-37.0) g/dL RDW (11.5-15.5) % Plt Count (150-450) k/uL MPV Neutrophils % % Lymphocytes % % Monocytes % % Eosinophils % % Basophils % % Neutrophils # (1.3-7.7) k/uL Lymphocytes # (1.0-4.8) k/uL Monocytes # (0-1.0) k/uL Eosinophils # (0-0.7) k/uL Basophils # (0-0.2) k/uL Macrocytosis PT (10.0-12.5) sec INR (<1.2) APTT (22.0-30.0) sec Sodium (137-145) mmol/L Potassium (3.5-5.1) mmol/L Chloride (98-107) mmol/L Carbon Dioxide (22-30) mmol/L Anion Gap mmol/L BUN (7-17) mg/dL Creatinine (0.52-1.04) mg/dL Est GFR (CKD-EPI)AfAm (>60 ml/min/1.73 sqM) Est GFR (CKD-EPI)NonAf (>60 ml/min/1.73 sqM) Glucose (74-99) mg/dL Plasma Lactic Acid Rickey 1.4 (0.7-2.0) mmol/L Calcium (8.4-10.2) mg/dL Phosphorus (2.5-4.5) mg/dL Magnesium (1.6-2.3) mg/dL Total Bilirubin (0.2-1.3) mg/dL AST (14-36) U/L ALT (4-34) U/L Alkaline Phosphatase (38-126) U/L Troponin I <0.012 (0.000-0.034) ng/mL Total Protein (6.3-8.2) g/dL Albumin (3.5-5.0) g/dL Disposition Clinical Impression: C. difficile diarrhea Disposition: ADMITTED IP TO THIS HOSP Condition: Serious Is patient prescribed a controlled substance at d/c from ED?: No Time of Disposition: 18:04
[2024-02-02 18:17] LABS: ALT 14 U/L (4-34); AST 20 U/L (14-36); African American GFR (CKD) >90 (>60 ml/min/1.73 sqM); Albumin 3.7 g/dL (3.5-5.0); Alkaline Phosphatase 75 U/L (38-126); Anion Gap 9 mmol/L; Blood Urea Nitrogen 8 mg/dL (7-17); Calcium 9.7 mg/dL (8.4-10.2); Carbon Dioxide 22 mmol/L (22-30); Chloride 96 mmol/L (98-107); Glucose 107 mg/dL (74-99); Magnesium 1.2 mg/dL (1.6-2.3); Non-African American GFR(CKD) 82 (>60 ml/min/1.73 sqM); Phosphorus 3.9 mg/dL (2.5-4.5); Potassium 4.5 mmol/L (3.5-5.1); Sodium 127 mmol/L (137-145); Total Bilirubin 0.7 mg/dL (0.2-1.3); Total Protein 6.2 g/dL (6.3-8.2)
[2024-02-02] MEDS: carvediloL 12.5 MG TAB PO SCH (21:49)
[2024-02-02] MEDS: SODIUM CHLORIDE 0.9% 1,000 ML IV SCH (21:49)
[2024-02-02] MEDS: FAMOTIDINE 20 MG TAB PO SCH (21:51)
[2024-02-02] MEDS: LOSARTAN 50 MG TAB PO SCH (21:52)
[2024-02-02] MEDS: CHOLESTYRAMINE (WITH SUGAR) 4 GM PACKET PO SCH (22:44)
[2024-02-02] MEDS: CALCIUM CARB-VIT D 500 MG-5 MCG TAB PO SCH (22:45)
[2024-02-02] MEDS: VANCOMYCIN 125 MG CAPSULE PO SCH (22:47)
[2024-02-02] MEDS: ACETAMINOPHEN TAB 325 MG TAB PO PRN (23:33)
[2024-02-03 08:36] LABS: Appearance,Urine Clear (Clear); Bacteria,Urine Few /hpf; Bilirubin,Urine Negative (Negative); Blood,Urine Negative (Negative); Color,Urine Colorless; Glucose,Urine (UA) Negative (Negative); Ketones,Urine 1+ (Negative); Leukocyte Esterase,Urine Large (Negative); Mucus,Urine Rare /hpf; Nitrite,Urine Negative (Negative); PH, Urine 5.5 (5.0-8.0); Protein,Urine Negative (Negative); RBC,Urine 1 /hpf (0-5); Specific Gravity,Urine 1.003 (1.001-1.035); Squamous Epithelial Cell,Urine 1 /hpf (0-4); Urobilinogen,Urine <2.0 mg/dL (<2.0); WBC,Urine 50 /hpf (0-5)
[2024-02-03 08:37] LABS: HCT 31.3 % (37.2-46.3); HGB 10.4 g/dL (12.0-15.0); MCH 33.5 pg (27.0-32.0); MCHC 33.2 g/dL (32.0-37.0); Mean Platelet Volume 10.1 FL (9.5-12.2); NRBC Per 100 WBC 0 X 10*3/uL (0.00-0.01); Platelet Count 266 X 10*3/uL (140-440); RDW 13.2 % (11.5-14.5); WBC 10.33 X 10*3/uL (4.50-10.00)
[2024-02-03 08:51] LABS: ALT 13 U/L (8-44); AST 14 U/L (13-35); Albumin 3.5 g/dL (3.8-4.9); Albumin/Globulin Ratio 1.75 Ratio (1.60-3.17); Alkaline Phosphatase 70 U/L (41-126); BUN/Creat Ratio 10.12 Ratio (12.00-20.00); Blood Urea Nitrogen 8.1 mg/dL (9.0-27.0); Calcium 8.8 mg/dL (8.7-10.3); Carbon Dioxide 20.9 mmol/L (21.6-31.8); Chloride 97 mmol/L (96-109); Glucose 89 mg/dL (70-110); Sodium 130 mmol/L (135-145); Total Bilirubin 0.4 mg/dL (0.3-1.2); Total Protein 5.5 g/dL (6.2-8.2)
[2024-02-03] MEDS: VIT A,C & E-LUTEIN-MINERALS 1 EACH TAB PO SCH (09:09)
[2024-02-03] MEDS: ATORVASTATIN 20 MG TAB PO SCH (09:09)
[2024-02-03] MEDS: CHOLECALCIFEROL 125 MCG (5000 IU) TABLET PO SCH (09:09)
[2024-02-03] MEDS: ENOXAPARIN 40 MG/0.4 ML SYRINGE SQ SCH (09:09)
[2024-02-03] MEDS: ASPIRIN 81 MG PO SCH (09:09)
[2024-02-03] MEDS: MULTIVITAMINS, THERA 1 EACH TAB PO SCH (09:09)
[2024-02-03 09:12] LABS: Basophils # (A) 0.06 X 10*3/uL (0.00-0.10); Basophils % (A) 0.6 %; Eosinophils # (A) 0.11 X 10*3/uL (0.04-0.35); Eosinophils % (A) 1.1 %; Lymphocytes # (A) 2.35 X 10*3/uL (0.90-5.00); Lymphocytes % (A) 22.7 %; Monocytes # (A) 1.99 X 10*3/uL (0.20-1.00); Monocytes % (A) 19.3 %; Neutrophils # (A) 5.78 X 10*3/uL (1.80-7.70); Neutrophils % (A) 55.9 %; RBC Morphology Normal (Normal)
[2024-02-03] MEDS: FOLIC ACID 1 MG TAB PO SCH (09:16)
[2024-02-03] MEDS: FIDAXOMICIN 200 MG TABLET PO SCH (14:03)
[2024-02-03 15:42] VITALS: BMI 26.7
--- NOTE | 2024-02-03 19:11 | P.HPIM ---
History of Present Illness H&P Date: 02/03/24 Chief Complaint: Recurrent C. 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 difficile colitis, she was treated with vancomycin 125 mg orally 4 times every day for about 4 weeks, and she came to the office for evaluation and follow-up few days ago, and she was feeling a bit better, however she presented to the yesterday to the office w ith increased dizziness lightheadedness not able to keep anything down and severe diarrhea not able to tolerate anything she has not been eating anything at this time, she patient was hypotensive she was referred to the emergency department for evaluation had a CT deferred toxins came back positive, she was started on IV fluid resuscitation, she was placed on vancomycin to 50 mg orally 4 times every day, consulted infectious disease to see if the patient is a candidate for Dificid 200 mg orally twice every day since she had failed the first management, patient also will be started on Questran 4 g orally twice every day, she will place on probiotic as well, I will admit the patient to the hospital because of significant hypovolemic hyponatremia and significant orthostatic changes. REVIEW OF SYSTEMS: Constitutional: No documented fever, no chills, no night sweats. No weight change. positive for weakness, positive for fatigue or lethargy. No daytime sleepiness. EENT: No headache. No blurred vision or double vision, no loss of vision. No loss of Hearing, no ringing in the ears, no dizziness. No nasal drainage or congestion. No epistaxis. No sore throat. Lungs: No shortness of breath, no cough, no sputum production. No wheezing. Reports dyspnea with activity. Cardiovascular: No chest pain, no lower extremity edema. No palpitations. No paroxysmal nocturnal dyspnea. No orthopnea. No lightheadedness or dizziness. No syncopal episodes. Abdominal: Reports abdominal pain. positive for nausea, vomiting. positive for diarrhea. No constipation. No bloody or tarry stools reports loss of appetite. Genitourinary: No dysuria, increased frequency, urgency. No urinary retention. Musculoskeletal: No myalgias. positive for muscle weakness, positive for gait dysfunction, no frequent falls. No back pain. No neck pain. Integumentary: right leg with scab No rash or pruritus. No unusual bruising. No change in hair or nails. Neurologic: No aphasia. No facial droop. No change in mentation. No head injury. No headache. No paralysis. No paresthesia. Psychiatric: No depression. No anxiety. No mood swings. Endocrine: No abnormal blood sugars. No weight change. PAST MEDICAL HISTORY: Hypertension and hypertensive cardiovascular disease. Hyperlipidemia. Osteoarthritis. Osteoporosis spondylosis of the lumbar spine and thoracic spine. Skin cancer. Mild Aortic valve stenosis PAST SURGICAL HISTORY: Bilateral total knee arthroplasty. Right hip IM nailing. SOCIAL HISTORY: Patient is a lifelong non-smoker, she drinks alcohol socially, she denies any dr ug use or abuse, she lives with her . FAMILY HISTORY: Patient did not know much about her father, her mother at age of 90 she had history of hypertension hyperlipidemia, she from old age, patient had 5 brothers one of her brothers from cardiac arrest had history of atrial fi brillation hypertension and chronic kidney disease, patient had 1 sister who as well patient has 2 daughters one of them with non-Hodgkin lymphoma and and she is recently diagnosed with bladder cancer. PHYSICAL EXAMINATION: General: This is a an 83-year-old female who is laying down in bed in no apparent distress. HEENT: Head is atraumatic, normocephalic, pupils were equal round reactive to light and recommendation, extraocular muscle movement were intact, sclera nonicteric, conjunctivae were pale, mucous membranes of the mouth are somewhat dry. Neck: Supple, no JVP, normal carotid upstroke bilaterally, no lymphadenopathy. Chest: Decreased breath sounds at the bases, few rhonchi, no expiratory wheezes, no chest wall tenderness, no intercostal retractions. Heart: First heart sound is normal, second heart sound is normal there is systolic ejection murmur 2/6 located in the left sternal border. Abdomen: Soft, mild tenderness to the left lower quadrant , nondistended, posi tive bowel sounds. Extremities: There is no edema no calf tenderness DP +2 bilaterally, there is an denuded hemorrhagic blister from the lower aspect of the right leg with an eschar on top of it. Neurologic examination: Patient is awake alert and oriented x3, cranial nerves II-12 appear grossly intact, muscle power were 5 out of 5 in upper extremities and 5 out of 5 in bilateral lower extremities, deep tendon reflexes normal bilaterally. 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 Start the patient on vancomycin to 50 mg orally 4 times every day, discussed with infectious disease the possibility of possible Dificid 200 mg orally twice daily for the next 10 days, start the patient on Questran 4 g orally twice every day, start probiotic, monitor the patient's symptoms very closely, continue IV fluid in the form of normal saline at 100 cc an hour, monitor the patient symptoms very closely. 2. Hypovolemic hyponatremia. Continue IV fluid resuscitation, monitor the patient CMP in the next 24 hours. 3. Hypertension and hypertensive cardiovascular disease. Continue patient on carvedilol 37.5 mg orally twice every day, continue patient on losartan 100 mg orally once every day, discontinue spironolactone. Monitor the patient blood pressure very closely. 4. Mixed hyperlipidemia. Continue patient on rosuvastatin 10 mg once every day, monitor the patient lipid panel, keep LDL 55-70. 5. Osteopenia. Continue patient on alendronate 70 mg once every week, continue calcium 1200 mg once every day, continue vitamin D3 2000 unit once every day. Patient is up-to-date on her DEXA scan. 6. Vitamin D deficiency. Continue vitamin D3 2000 units once every day. 7. Osteoarthritis. Continue current pain management. 8. DVT prophylaxis. Start the patient on Lovenox 40 mg subcutaneous every 24 hours. Bilateral knee-high SONI hose. 9. GI prophylaxis. Continue patient on famotidine 20 mg at bedtime. 10. Admit to inpatient. Estimated length of stay 2 midnights. 11. Patient is full code. Past Medical History Past Medical History: Cancer, Hypertension, Skin Disorder Additional Past Medical History / Comment(s): SKIN CANCER, has a cold sore on lip. c diff. History of Any Multi-Drug Resistant Organisms: None Reported Past Surgical History: Joint Replacement, Orthopedic Surgery, Tubal Ligation Additional Past Surgical History / Comment(s): SURGERY FOR SKIN CANCER-LEG, HIP ORIF, femur fx, bilateral knees replaced, RLE hematoma I and D Past Anesthesia/Blood Transfusion Reactions: No Reported Reaction Past Psychological History: No Psychological Hx Reported Smoking Status: Never smoker Past Alcohol Use History: Daily Past Drug Use History: None Reported Medications and Allergies Home Medications Medication Instructions Recorded Confirmed Type Aspirin 81 mg PO DAILY 12/07/13 02/02/24 History Multivitamin/Iron/Folic Acid 1 tab PO DAILY 12/07/13 02/02/24 History [Centrum Complete Multivit Tab] Calcium Carbonate/Vitamin D3 1 tab PO BID 01/05/14 02/02/24 History [Caltrate 600 Plus D3 Tablet] Folic Acid 800 mg PO DAILY 01/06/14 02/02/24 History Losartan Potassium 100 mg PO DAILY 06/20/14 02/02/24 History Alendronate Sodium [Fosamax] 70 mg PO GRAHAM 12/31/23 02/02/24 History Cholecalciferol [Vitamin D3 (125 125 mcg PO DAILY 12/31/23 02/02/24 History Mcg = 5000 Iu)] Rosuvastatin [Crestor] 10 mg PO DAILY 12/31/23 02/02/24 History Spironolactone 12.5 mg PO DAILY 12/31/23 02/02/24 History Vit C/E/Zn/Coppr/Lutein/Zeaxan 1 cap PO DAILY 12/31/23 02/02/24 History [Preservision Areds 2 Softgel] carvediloL [Coreg] 37.5 mg PO BID 12/31/23 02/02/24 History Cholestyramine/Aspartame 4 gm PO DAILY 02/02/24 02/02/24 History [Cholestyramine Light Packet] Fidaxomicin [Dificid] 200 mg PO BID #20 tablet 02/03/24 Rx Allergies Allergy/AdvReac Type Severity Reaction Status Date / Time codeine Allergy Rash/Hives Verified 02/02/24 20:30 hydrocodone bitartrate Allergy Itching Verified 02/02/24 20:30 [From [place]] metoprolol Allergy Rash/Hives Verified 02/02/24 20:30 Sulfa (Sulfonamide AdvReac LIGHT Verified 02/02/24 20:30 Antibiotics) HEADED, VERTIGO sulfamethoxazole AdvReac LIGHT Verified 02/02/24 20:30 [From Bactrim] HEADED, VERTIGO tramadol AdvReac VERTIGO Verified 02/02/24 20:30 trimethoprim [From Bactrim] AdvReac LIGHT Verified 02/02/24 20:30 HEADED, VERTIGO Physical Exam Vitals: Vital Signs Temp Pulse Pulse Resp BP BP Pulse Ox 02/03/24 07:17 97.9 F 76 16 153/81 95 02/03/24 01:30 97.5 F L 81 19 114/56 95 02/02/24 22:14 97.9 F 92 18 158/63 99 02/02/24 21:46 94 16 166/74 97 02/02/24 16:42 97.6 F 84 20 117/75 99 Intake and Output 02/02/24 02/03/24 02/03/24 22:59 06:59 14:59 Other: Voiding Method Toilet # Voids 1 1 # Bowel Movements 2 Weight 62.142 kg Results CBC & Chem 7: 02/03/24 05:03 02/03/24 05:03 Labs: Abnormal Lab Results - Last 24 Hours (Table) 02/02/24 02/02/24 02/03/24 Range/Units 16:57 16:57 05:03 WBC 10.33 H (4.50-10.00) X 10*3/uL RBC 2.56 L 3.10 L (3.80-5.40) m/uL Hgb 9.9 L 10.4 L (11.4-16.0) gm/dL Hct 26.6 L 31.3 L (34.0-46.0) % MCV 103.7 H 101.0 H (80.0-100.0) fL MCH 38.7 H 33.5 H (25.0-35.0) pg MCHC 37.4 H (31.0-37.0) g/dL Monocytes # 1.99 H (0.20-1.00) X 10*3/uL Sodium 127 L (137-145) mmol/L Chloride 96 L (98-107) mmol/L Carbon Dioxide (21.6-31.8) mmol/L Anion Gap (4.00-12.00) mmol/L BUN (9.0-27.0) mg/dL BUN/Creatinine Ratio (12.00-20.00) Ratio Glucose 107 H (74-99) mg/dL Magnesium 1.2 L (1.6-2.3) mg/dL Total Protein 6.2 L (6.3-8.2) g/dL Albumin (3.8-4.9) g/dL Urine Ketones (Negative) Ur Leukocyte Esterase (Negative) Urine WBC (0-5) /hpf Urine Bacteria (None) /hpf Urine Mucus (None) /hpf 02/03/24 02/03/24 Range/Units 05:03 07:26 WBC (4.50-10.00) X 10*3/uL RBC (3.80-5.40) m/uL Hgb (11.4-16.0) gm/dL Hct (34.0-46.0) % MCV (80.0-100.0) fL MCH (25.0-35.0) pg MCHC (31.0-37.0) g/dL Monocytes # (0.20-1.00) X 10*3/uL Sodium 130 L (137-145) mmol/L Chloride (98-107) mmol/L Carbon Dioxide 20.9 L (21.6-31.8) mmol/L Anion Gap 12.10 H (4.00-12.00) mmol/L BUN 8.1 L (9.0-27.0) mg/dL BUN/Creatinine Ratio 10.12 L (12.00-20.00) Ratio Glucose (74-99) mg/dL Magnesium (1.6-2.3) mg/dL Total Protein 5.5 L (6.3-8.2) g/dL Albumin 3.5 L (3.8-4.9) g/dL Urine Ketones 1+ H (Negative) Ur Leukocyte Esterase Large H (Negative) Urine WBC 50 H (0-5) /hpf Urine Bacteria Few H (None) /hpf Urine Mucus Rare H (None) /hpf Thrombosis Risk Factor Assmnt - Choose All That Apply Any of the Below Risk Factors Present?: Yes Each Factor Represents 1 point: Obesity (BMI >25) Each Risk Factor Represents 3 Points: Age 75 years or older Other congenital or acquired thrombophilia - If yes, enter type in comment: No Thrombosis Risk Factor Assessment Total Risk Factor Score: 4 Thrombosis Risk Factor Assessment Level: Moderate Risk
--- NOTE | 2024-02-03 22:06 | P.CONS ---
History of Present Illness - Reason for Consult Consult date: 02/03/24 C. difficile colitis Requesting physician: Artis Magaña - Chief Complaint Diarrhea x weeks - History of Present Illness Patient is a 83-year-old female with a past medical history significant for hypertension apparently developed a laceration of the right lower extremity for the patient was evaluated at [facility] and the patient has been treated with a course of oral Keflex patient mention she was having diarrhea while on cephalexin that has subsequently got worse for the patient was evaluated at an outside facility patient has been diagnosed her with the C. difficile colitis and has been treated with oral vancomycin 125 mg p.o. every 6 hours however the patient continued to have diarrhea describing it multiple loose stool almost 20 times per day patient did have watery stools no blood or mucus in the stool having crampy lower abdominal pain moderate intensity without radiation some nausea but no vomiting denies high-grade fever with the symptoms the patient has been admitted to the hospital on presentation to the hospital the patient was afebrile and no fever Recorded subsequently patient was not tachycardic hypotensive or hypoxic and no need for supplemental oxygen white count was 10.33 with a left shift creatinine is 0.8 swelling was noted rest of electrolytes are normal liver enzymes are normal urine mildly positive stool for C. difficile positive patient was started on oral vancomycin has been admitted to hospital infectious disease was consulted for further management of antibiotic therapy Review of Systems Positive point and negatives has been mentioned in the HPI, complete review of systems was performed and all other systems are negative Past Medical History Past Medical History: Cancer, Hypertension, Skin Disorder Additional Past Medical History / Comment(s): SKIN CANCER, has a cold sore on lip. c diff. History of Any Multi-Drug Resistant Organisms: None Reported Past Surgical History: Joint Replacement, Orthopedic Surgery, Tubal Ligation Additional Past Surgical History / Comment(s): SURGERY FOR SKIN CANCER-LEG, HIP ORIF, femur fx, bilateral knees replaced, RLE hematoma I and D Past Anesthesia/Blood Transfusion Reactions: No Reported Reaction Past Psychological History: No Psychological Hx Reported Smoking Status: Never smoker Past Alcohol Use History: Daily Past Drug Use History: None Reported Medications and Allergies Home Medications Medication Instructions Recorded Confirmed Type Aspirin 81 mg PO DAILY 12/07/13 02/02/24 History Multivitamin/Iron/Folic Acid 1 tab PO DAILY 12/07/13 02/02/24 History [Centrum Complete Multivit Tab] Calcium Carbonate/Vitamin D3 1 tab PO BID 01/05/14 02/02/24 History [Caltrate 600 Plus D3 Tablet] Folic Acid 800 mg PO DAILY 01/06/14 02/02/24 History Losartan Potassium 100 mg PO DAILY 06/20/14 02/02/24 History Alendronate Sodium [Fosamax] 70 mg PO GRAHAM 12/31/23 02/02/24 History Cholecalciferol [Vitamin D3 (125 125 mcg PO DAILY 12/31/23 02/02/24 History Mcg = 5000 Iu)] Rosuvastatin [Crestor] 10 mg PO DAILY 12/31/23 02/02/24 History Spironolactone 12.5 mg PO DAILY 12/31/23 02/02/24 History Vit C/E/Zn/Coppr/Lutein/Zeaxan 1 cap PO DAILY 12/31/23 02/02/24 History [Preservision Areds 2 Softgel] carvediloL [Coreg] 37.5 mg PO BID 12/31/23 02/02/24 History Cholestyramine/Aspartame 4 gm PO DAILY 02/02/24 02/02/24 History [Cholestyramine Light Packet] Fidaxomicin [Dificid] 200 mg PO BID #20 tablet 02/03/24 Rx Allergies Allergy/AdvReac Type Severity Reaction Status Date / Time codeine Allergy Rash/Hives Verified 02/02/24 20:30 hydrocodone bitartrate Allergy Itching Verified 02/02/24 20:30 [From [place]] metoprolol Allergy Rash/Hives Verified 02/02/24 20:30 Sulfa (Sulfonamide AdvReac LIGHT Verified 02/02/24 20:30 Antibiotics) HEADED, VERTIGO sulfamethoxazole AdvReac LIGHT Verified 02/02/24 20:30 [From Bactrim] HEADED, VERTIGO tramadol AdvReac VERTIGO Verified 02/02/24 20:30 trimethoprim [From Bactrim] AdvReac LIGHT Verified 02/02/24 20:30 HEADED, VERTIGO Physical Exam Vitals: Vital Signs Temp Pulse Pulse Resp BP BP Pulse Ox 02/03/24 07:17 97.9 F 76 16 153/81 95 02/03/24 01:30 97.5 F L 81 19 114/56 95 02/02/24 22:14 97.9 F 92 18 158/63 99 02/02/24 21:46 94 16 166/74 97 02/02/24 16:42 97.6 F 84 20 117/75 99 Intake and Output 02/02/24 02/03/24 02/03/24 22:59 06:59 14:59 Other: # Voids 1 1 # Bowel Movements 2 Weight 62.142 kg GENERAL DESCRIPTION: Elderly female lying in bed, no distress. No tachypnea or accessory muscle of respiration use. HEENT: Shows Pallor , no scleral icterus. Oral mucous membrane is dry. No pharyngeal erythema or thrush NECK: Trachea central, no thyromegaly. LUNGS: Unlabored breathing. Clear to auscultation anteriorly. No wheeze or crackle. HEART: S1, S2, regular rate and rhythm. No loud murmur ABDOMEN: Soft, no tenderness , EXTREMITIES: No edema of feet. SKIN: No rash, no masses palpable. NEUROLOGICAL: The patient is awake, alert, oriented x3, mood and affect normal. Results CBC & Chem 7: 02/03/24 05:03 02/03/24 05:03 Labs: Abnormal Lab Results - Last 24 Hours (Table) 02/02/24 02/02/24 02/03/24 Range/Units 16:57 16:57 05:03 WBC 10.33 H (4.50-10.00) X 10*3/uL RBC 2.56 L 3.10 L (3.80-5.40) m/uL Hgb 9.9 L 10.4 L (11.4-16.0) gm/dL Hct 26.6 L 31.3 L (34.0-46.0) % MCV 103.7 H 101.0 H (80.0-100.0) fL MCH 38.7 H 33.5 H (25.0-35.0) pg MCHC 37.4 H (31.0-37.0) g/dL Monocytes # 1.99 H (0.20-1.00) X 10*3/uL Sodium 127 L (137-145) mmol/L Chloride 96 L (98-107) mmol/L Carbon Dioxide (21.6-31.8) mmol/L Anion Gap (4.00-12.00) mmol/L BUN (9.0-27.0) mg/dL BUN/Creatinine Ratio (12.00-20.00) Ratio Glucose 107 H (74-99) mg/dL Magnesium 1.2 L (1.6-2.3) mg/dL Total Protein 6.2 L (6.3-8.2) g/dL Albumin (3.8-4.9) g/dL Urine Ketones (Negative) Ur Leukocyte Esterase (Negative) Urine WBC (0-5) /hpf Urine Bacteria (None) /hpf Urine Mucus (None) /hpf 02/03/24 02/03/24 Range/Units 05:03 07:26 WBC (4.50-10.00) X 10*3/uL RBC (3.80-5.40) m/uL Hgb (11.4-16.0) gm/dL Hct (34.0-46.0) % MCV (80.0-100.0) fL MCH (25.0-35.0) pg MCHC (31.0-37.0) g/dL Monocytes # (0.20-1.00) X 10*3/uL Sodium 130 L (137-145) mmol/L Chloride (98-107) mmol/L Carbon Dioxide 20.9 L (21.6-31.8) mmol/L Anion Gap 12.10 H (4.00-12.00) mmol/L BUN 8.1 L (9.0-27.0) mg/dL BUN/Creatinine Ratio 10.12 L (12.00-20.00) Ratio Glucose (74-99) mg/dL Magnesium (1.6-2.3) mg/dL Total Protein 5.5 L (6.3-8.2) g/dL Albumin 3.5 L (3.8-4.9) g/dL Urine Ketones 1+ H (Negative) Ur Leukocyte Esterase Large H (Negative) Urine WBC 50 H (0-5) /hpf Urine Bacteria Few H (None) /hpf Urine Mucus Rare H (None) /hpf Assessment and Plan (1) C. difficile colitis Current Visit: Yes Status: Acute Code(s): A04.72 - ENTEROCOLITIS D/T CLOSTRIDIUM DIFFICILE, NOT SPCF RECUR SNOMED Code(s): 081952213 Plan: 1patient presented hospital with severe diarrhea that has been going on for the last few weeks and apparently the patient has failed outpatient oral vancomycin therapy 2-we will discontinue vancomycin 3-start the patient on Dificid 200 mg twice a day 4-patient has been encouraged to increase her probiotic and yogurt intake We will follow on clinical condition and cultures to further adjust medication if needed Thank you for this consultation we will follow the patient along with you Dictation was produced using [employer] dictation software. please excuse any gramm atical, word or spelling errors. Time with Patient: Greater than 30
[2024-02-04] MEDS: FAMOTIDINE 20 MG TAB PO SCH (08:18)
[2024-02-04 12:14] LABS: Basophils # (A) 0.04 X 10*3/uL (0.00-0.10); Basophils % (A) 0.3 %; Eosinophils # (A) 0 X 10*3/uL (0.04-0.35); Eosinophils % (A) 0 %; HCT 30.4 % (37.2-46.3); HGB 10.3 g/dL (12.0-15.0); Lymphocytes # (A) 1.58 X 10*3/uL (0.90-5.00); Lymphocytes % (A) 11.6 %; MCH 33.9 pg (27.0-32.0); MCHC 33.9 g/dL (32.0-37.0); Mean Platelet Volume 10.2 FL (9.5-12.2); Monocytes # (A) 1.65 X 10*3/uL (0.20-1.00); Monocytes % (A) 12.1 %; NRBC Per 100 WBC 0 X 10*3/uL (0.00-0.01); Neutrophils % (A) 75.5 %; Platelet Count 263 X 10*3/uL (140-440); RBC 3.04 X 10*6/uL (4.10-5.20); RDW 13.3 % (11.5-14.5); WBC 13.64 X 10*3/uL (4.50-10.00)
[2024-02-04 12:21] LABS: ALT 12 U/L (8-44); AST 14 U/L (13-35); Albumin 3.3 g/dL (3.8-4.9); Albumin/Globulin Ratio 1.57 Ratio (1.60-3.17); Alkaline Phosphatase 78 U/L (41-126); BUN/Creat Ratio 8.33 Ratio (12.00-20.00); Calcium 8.5 mg/dL (8.7-10.3); Carbon Dioxide 19.6 mmol/L (21.6-31.8); Chloride 97 mmol/L (96-109); Globulin 2.1 g/dL (1.6-3.3); Glucose 113 mg/dL (70-110); Potassium 3.5 mmol/L (3.5-5.5); Sodium 130 mmol/L (135-145); Total Bilirubin 0.3 mg/dL (0.3-1.2); Total Protein 5.4 g/dL (6.2-8.2)
[2024-02-05 10:55] LABS: Basophils # (A) 0.06 X 10*3/uL (0.00-0.10); Basophils % (A) 0.4 %; Eosinophils # (A) 0 X 10*3/uL (0.04-0.35); Eosinophils % (A) 0 %; HCT 31.7 % (37.2-46.3); HGB 10.6 g/dL (12.0-15.0); Lymphocytes # (A) 2.23 X 10*3/uL (0.90-5.00); MCHC 33.4 g/dL (32.0-37.0); MCV 101.6 FL (80.0-97.0); Mean Platelet Volume 10.5 FL (9.5-12.2); Monocytes % (A) 8.8 %; NRBC Per 100 WBC 0 X 10*3/uL (0.00-0.01); Neutrophils # (A) 13.23 X 10*3/uL (1.80-7.70); Neutrophils % (A) 77.2 %; Platelet Count 276 X 10*3/uL (140-440); RBC 3.12 X 10*6/uL (4.10-5.20); RDW 13.5 % (11.5-14.5); WBC 17.12 X 10*3/uL (4.50-10.00)
[2024-02-05 10:57] LABS: ALT 14 U/L (8-44); AST 11 U/L (13-35); Albumin 3.5 g/dL (3.8-4.9); Albumin/Globulin Ratio 1.59 Ratio (1.60-3.17); Alkaline Phosphatase 92 U/L (41-126); Blood Urea Nitrogen 4.8 mg/dL (9.0-27.0); Calcium 8.5 mg/dL (8.7-10.3); Carbon Dioxide 19.1 mmol/L (21.6-31.8); Chloride 97 mmol/L (96-109); Globulin 2.2 g/dL (1.6-3.3); Glucose 117 mg/dL (70-110); Potassium 4.1 mmol/L (3.5-5.5); Sodium 128 mmol/L (135-145); Total Bilirubin 0.4 mg/dL (0.3-1.2); Total Protein 5.7 g/dL (6.2-8.2)
--- NOTE | 2024-02-05 13:12 | P.PN ---
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 after she was admitted for severe abdominal pain associated with severe diarrhea she was diagnosed with C. difficile colitis, she was treated with vancomycin 125 mg orally 4 times every day for about 4 weeks, and she came to the office for evaluation and follow-up few days ago, and she was feeling a bit better, however she presented to the yesterday to the office with increased dizziness lightheadedness not able to keep anything down and severe diarrhea not able to tolerate anything she has not been eating anything at this time, she patient was hypotensive she was referred to the emergency department for evaluation had a CT deferred toxins came back positive, she was started on IV fluid resuscitation, she was placed on vancomycin to 50 mg orally 4 times every day, consulted infectious disease to see if the patient is a candidate for Dificid 200 mg orally twice every day since she had failed the first management, patient also will be started on Questran 4 g orally twice every day, she will place on probiotic as well, I will admit the patient to the hospital because of significant hypovolemic hyponatremia and significant orthostatic changes. 02/03: Patient is laying down in bed continues to have loose stool, better than he was yesterday, continues to have abdominal cramps associate with nausea but no vomiting, she continues to have a loose bowel movement every time she has anything to eat, she has no fever or chills at this time, she seems to be tolerating the new medication Dr. Martel has switched her to Dificid 200 mg orally twice every day vancomycin was stopped, we will continue to follow-up the patient very closely, I will discontinue IV fluid at this time, if her symptoms are not better we will obtain CT scan of the abdomen pelvis tomorrow morning if she is not getting better. REVIEW OF SYSTEMS: Constitutional: No documented fever, no chills, no night sweats. No weight change. positive for weakness, positive for fatigue or lethargy. No daytime sleepiness. EENT: No headache. No blurred vision or double vision, no loss of vision. No loss of Hearing, no ringing in the ears, no dizziness. No nasal drainage or congestion. No epistaxis. No sore throat. Lungs: No shortness of breath, no cough, no sputum production. No wheezing. Reports dyspnea with activity. Cardiovascular: No chest pain, no lower extremity edema. No palpitations. No paroxysmal nocturnal dyspnea. No orthopnea. No lightheadedness or dizziness. No syncopal episodes. Abdominal: Reports abdominal pain. positive for nausea, vomiting. positive for diarrhea. No constipation. No bloody or tarry stools reports loss of appetite. Genitourinary: No dysuria, increased frequency, urgency. No urinary retention. Musculoskeletal: No myalgias. positive for muscle weakness, positive for gait dysfunction, no frequent falls. No back pain. No neck pain. Integumentary: right leg with scab No rash or pruritus. No unusual bruising. No change in hair or nails. Neurologic: No aphasia. No facial droop. No change in mentation. No head injury. No headache. No paralysis. No paresthesia. Psychiatric: No depression. No anxiety. No mood swings. Endocrine: No abnormal blood sugars. No weight change. PHYSICAL EXAMINATION: General: This is a an 83-year-old female who is laying down in bed in no apparent distress. HEENT: Head is atraumatic, normocephalic, pupils were equal round reactive to light and recommendation, extraocular muscle movement were intact, sclera nonicteric, conjunctivae were pale, mucous membranes of the mouth are somewhat dry. Neck: Supple, no JVP, normal carotid upstroke bilaterally, no lymphadenopathy. Chest: Decreased breath sounds at the bases, few rhonchi, no expiratory wheezes, no chest wall tenderness, no intercostal retractions. Heart: First heart sound is normal, second heart sound is normal there is systolic ejection murmur 2/6 located in the left sternal border. Abdomen: Soft, mild tenderness to the left lower quadrant , nondistended, positive bowel sounds. Extremities: There is no edema no calf tenderness DP +2 bilaterally, there is an denuded hemorrhagic blister from the lower aspect of the right leg with an eschar on top of it. Neurologic examination: Patient is awake alert and oriented x3, cranial nerves II-12 appear grossly intact, muscle power were 5 out of 5 in upper extremities and 5 out of 5 in bilateral lower extremities, deep tendon reflexes normal bilaterally. 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 Continue patient on Dificid 200 mg orally twice every day for the next 10 days, continue with Questran 4 g orally twice every day, monitor the patient symptoms very closely, continue current pain management with Tylenol and Motrin, if not better will check CT scan of the abdomen and pelvis in the next 24 hours. 2. Hypovolemic hyponatremia. Sodium is stable at 130, discontinue IV fluid, monitor the patient CMP over the next 24 hours. 3. Hypertension and hypertensive cardiovascular disease. Continue patient on carvedilol 37.5 mg orally twice every day, continue patient on losartan 100 mg orally once every day, discontinue spironolactone. Monitor the patient blood pressure very closely. 4. Mixed hyperlipidemia. Continue patient on rosuvastatin 10 mg once every day, monitor the patient lipid panel, keep LDL 55-70. 5. Osteopenia. Continue patient on alendronate 70 mg once every week, continue calcium 1200 mg once every day, continue vitamin D3 2000 unit once every day. Patient is up-to-date on her DEXA scan. 6. Vitamin D deficiency. Continue vitamin D3 2000 units once every day. 7. Osteoarthritis. Continue current pain management. 8. DVT prophylaxis. Start the patient on Lovenox 40 mg subcutaneous every 24 hours. Bilateral knee-high SONI hose. 9. GI prophylaxis. Continue patient on famotidine 20 mg at bedtime. 10. Physical therapy evaluation. 11. Disposition is likely home. Objective - Vital Signs Vital signs: Vital Signs Temp 98.7 F 02/04/24 13:52 Pulse 97 02/04/24 13:52 Resp 16 02/04/24 13:52 BP 155/96 02/04/24 13:52 Pulse Ox 96 02/04/24 13:52 FiO2 Intake & Output 02/03/24 02/04/24 02/04/24 18:59 06:59 18:59 Weight 62.142 kg Other: Voiding Method Toilet Toilet Toilet # Voids 3 1 1 # Bowel Movements 1 1 - Labs CBC & Chem 7: 02/05/24 06:33 02/05/24 06:33 Labs: Abnormal Lab Results - Last 24 Hours (Table) 02/04/24 02/04/24 Range/Units 06:38 06:38 WBC 13.64 H (4.50-10.00) X 10*3/uL RBC 3.04 L (4.10-5.20) X 10*6/uL Hgb 10.3 L (12.0-15.0) g/dL Hct 30.4 L (37.2-46.3) % MCV 100.0 H (80.0-97.0) FL MCH 33.9 H (27.0-32.0) pg Immature Gran # 0.07 H (0.00-0.04) X 10*3/uL Neutrophils # 10.30 H (1.80-7.70) X 10*3/uL Monocytes # 1.65 H (0.20-1.00) X 10*3/uL Eosinophils # 0 L (0.04-0.35) X 10*3/uL Sodium 130 L (135-145) mmol/L Carbon Dioxide 19.6 L (21.6-31.8) mmol/L Anion Gap 13.40 H (4.00-12.00) mmol/L BUN 5.0 L (9.0-27.0) mg/dL BUN/Creatinine Ratio 8.33 L (12.00-20.00) Ratio Glucose 113 H (70-110) mg/dL Calcium 8.5 L (8.7-10.3) mg/dL Total Protein 5.4 L (6.2-8.2) g/dL Albumin 3.3 L (3.8-4.9) g/dL Albumin/Globulin Ratio 1.57 L (1.60-3.17) Ratio Microbiology - Last 24 Hours (Table) 02/02/24 18:11 Blood Culture - Preliminary Blood
[2024-02-05] MEDS: IOPAMIDOL CONTRAST (ORAL USE) VIAL PO PRN (14:33)
--- NOTE | 2024-02-05 15:12 | P.PN ---
Subjective Progress Note Date: 02/04/24 Principal diagnosis: Reason for follow-up is C. difficile colitis Patient is a 83-year-old female with a past medical history significant for hypertension recently exposed antibiotic for the right lower extremity laceration subsequent developing C. difficile colitis that has been treated with oral vancomycin with persistent symptoms the patient has been admitted to the hospital. On today's evaluation that is 02/04/2024,the patient remains to be afebrile, patient is on room air not requiring supplemental oxygen and denies any shortness of breath no chest pain or cough.Patient did have some nausea and crampy abdominal pain diarrhea has slowed down still loose no blood mucus in the stool. Patient white count is slightly up to 13.6 creatinine 0.6 Objective - Vital Signs Vital signs: Vital Signs Temp 98.7 F 02/04/24 13:52 Pulse 97 02/04/24 13:52 Resp 16 02/04/24 13:52 BP 155/96 02/04/24 13:52 Pulse Ox 96 02/04/24 13:52 FiO2 Intake & Output 02/03/24 02/04/24 02/04/24 18:59 06:59 18:59 Weight 62.142 kg Other: Voiding Method Toilet Toilet Toilet # Voids 3 1 1 # Bowel Movements 1 1 - Exam GENERAL DESCRIPTION: An elderly female lying in bed in no distress RESPIRATORY SYSTEM: Unlabored breathing , decreased breath sounds at bases HEART: S1 S2 regular rate and rhythm , ABDOMEN: Soft , no tenderness EXTREMITIES: No edema feet - Labs CBC & Chem 7: 02/05/24 06:33 02/05/24 06:33 Labs: Abnormal Lab Results - Last 24 Hours (Table) 02/04/24 02/04/24 Range/Units 06:38 06:38 WBC 13.64 H (4.50-10.00) X 10*3/uL RBC 3.04 L (4.10-5.20) X 10*6/uL Hgb 10.3 L (12.0-15.0) g/dL Hct 30.4 L (37.2-46.3) % MCV 100.0 H (80.0-97.0) FL MCH 33.9 H (27.0-32.0) pg Immature Gran # 0.07 H (0.00-0.04) X 10*3/uL Neutrophils # 10.30 H (1.80-7.70) X 10*3/uL Monocytes # 1.65 H (0.20-1.00) X 10*3/uL Eosinophils # 0 L (0.04-0.35) X 10*3/uL Sodium 130 L (135-145) mmol/L Carbon Dioxide 19.6 L (21.6-31.8) mmol/L Anion Gap 13.40 H (4.00-12.00) mmol/L BUN 5.0 L (9.0-27.0) mg/dL BUN/Creatinine Ratio 8.33 L (12.00-20.00) Ratio Glucose 113 H (70-110) mg/dL Calcium 8.5 L (8.7-10.3) mg/dL Total Protein 5.4 L (6.2-8.2) g/dL Albumin 3.3 L (3.8-4.9) g/dL Albumin/Globulin Ratio 1.57 L (1.60-3.17) Ratio Microbiology - Last 24 Hours (Table) 02/02/24 18:11 Blood Culture - Preliminary Blood Assessment and Plan (1) C. difficile colitis Current Visit: Yes Status: Acute Code(s): A04.72 - ENTEROCOLITIS D/T CLOSTRIDIUM DIFFICILE, NOT SPCF RECUR SNOMED Code(s): 421793116 Plan: 1patient presented hospital with severe diarrhea that has been going on for the last few weeks and apparently the patient has failed outpatient oral vancomycin therapy 2-patient to continue with Dificid 200 mg twice a day along with Questran for symptomatic relief Multiple question concern answered Dictation was produced using [employer] software. please excuse any grammatical, word or spelling errors. Time with Patient: Less than 30
--- NOTE | 2024-02-05 15:13 | P.PN ---
Subjective Progress Note Date: 02/05/24 Principal diagnosis: Reason for follow-up is C. difficile colitis Patient is a 83-year-old female with a past medical history significant for hypertension recently exposed antibiotic for the right lower extremity laceration subsequent developing C. difficile colitis that has been treated with oral vancomycin with persistent symptoms the patient has been admitted to the hospital. On today's evaluation that is 02/05/2024, the patient continues to be afebrile, the patient is on room air and breathing comfortably, the Pt denies having any chest pain or cough, the patient did mention she did have semiformed bowel movement this morning afterwards she did have 2 bowel movements which is baseline loose denies abdominal pain no nausea no vomiting. Patient white count is up to 17.12, creatinine 0.6, blood cultures are pending Objective - Vital Signs Vital signs: Vital Signs Temp 97.3 F L 02/05/24 07:06 Pulse 77 02/05/24 07:06 Resp 18 02/05/24 07:06 BP 106/69 02/05/24 07:06 Pulse Ox 93 L 02/05/24 07:06 FiO2 Intake & Output 02/04/24 02/05/24 02/05/24 18:59 06:59 18:59 Other: Voiding Method Toilet Toilet # Voids 1 1 # Bowel Movements 1 2 - Exam GENERAL DESCRIPTION: An elderly female lying in bed in no distress RESPIRATORY SYSTEM: Unlabored breathing , decreased breath sounds at bases HEART: S1 S2 regular rate and rhythm , ABDOMEN: Soft , no tenderness EXTREMITIES: No edema feet - Labs CBC & Chem 7: 02/05/24 06:33 02/05/24 06:33 Labs: Abnormal Lab Results - Last 24 Hours (Table) 02/04/24 02/04/24 02/05/24 Range/Units 06:38 06:38 06:33 WBC 13.64 H 17.12 H (4.50-10.00) X 10*3/uL RBC 3.04 L 3.12 L (4.10-5.20) X 10*6/uL Hgb 10.3 L 10.6 L (12.0-15.0) g/dL Hct 30.4 L 31.7 L (37.2-46.3) % MCV 100.0 H 101.6 H (80.0-97.0) FL MCH 33.9 H 34.0 H (27.0-32.0) pg Immature Gran # 0.07 H 0.10 H (0.00-0.04) X 10*3/uL Neutrophils # 10.30 H 13.23 H (1.80-7.70) X 10*3/uL Monocytes # 1.65 H 1.50 H (0.20-1.00) X 10*3/uL Eosinophils # 0 L 0 L (0.04-0.35) X 10*3/uL Sodium 130 L (135-145) mmol/L Carbon Dioxide 19.6 L (21.6-31.8) mmol/L Anion Gap 13.40 H (4.00-12.00) mmol/L BUN 5.0 L (9.0-27.0) mg/dL BUN/Creatinine Ratio 8.33 L (12.00-20.00) Ratio Glucose 113 H (70-110) mg/dL Calcium 8.5 L (8.7-10.3) mg/dL AST (13-35) U/L Total Protein 5.4 L (6.2-8.2) g/dL Albumin 3.3 L (3.8-4.9) g/dL Albumin/Globulin Ratio 1.57 L (1.60-3.17) Ratio 02/05/24 Range/Units 06:33 WBC (4.50-10.00) X 10*3/uL RBC (4.10-5.20) X 10*6/uL Hgb (12.0-15.0) g/dL Hct (37.2-46.3) % MCV (80.0-97.0) FL MCH (27.0-32.0) pg Immature Gran # (0.00-0.04) X 10*3/uL Neutrophils # (1.80-7.70) X 10*3/uL Monocytes # (0.20-1.00) X 10*3/uL Eosinophils # (0.04-0.35) X 10*3/uL Sodium 128 L (135-145) mmol/L Carbon Dioxide 19.1 L (21.6-31.8) mmol/L Anion Gap (4.00-12.00) mmol/L BUN 4.8 L (9.0-27.0) mg/dL BUN/Creatinine Ratio 8.00 L (12.00-20.00) Ratio Glucose 117 H (70-110) mg/dL Calcium 8.5 L (8.7-10.3) mg/dL AST 11 L (13-35) U/L Total Protein 5.7 L (6.2-8.2) g/dL Albumin 3.5 L (3.8-4.9) g/dL Albumin/Globulin Ratio 1.59 L (1.60-3.17) Ratio Microbiology - Last 24 Hours (Table) 02/02/24 18:11 Blood Culture - Preliminary Blood Assessment and Plan (1) C. difficile colitis Current Visit: Yes Status: Acute Code(s): A04.72 - ENTEROCOLITIS D/T CLOSTRIDIUM DIFFICILE, NOT SPCF RECUR SNOMED Code(s): 973763837 (2) Leukocytosis Current Visit: Yes Status: Acute Code(s): D72.829 - ELEVATED WHITE BLOOD CELL COUNT, UNSPECIFIED SNOMED Code(s): 716197584 Plan: 1patient presented hospital with severe diarrhea that has been going on for the last few weeks and apparently the patient has failed outpatient oral vancomycin therapy 2-patient seem to have shown clinical improvement and his diarrhea has slowed on however the patient noticed to have worsening of the white count was up to 17,000 we will repeat a CBC with a.m. lab if any further worsening of the white count will check a CT abdominal pelvis for now continue with the Simperiumjosé miguel and Waynarosal[employer] Dictation was produced using [employer] dictation software. please excuse any grammatical, word or spelling errors. Time with Patient: Less than 30
--- NOTE | 2024-02-05 16:37 | CT ---
EXAMINATION TYPE: CT abdomen pelvis w con DATE OF EXAM: 02/05/2024 COMPARISON: NONE HISTORY: 83-year-old female abdominal pain, cdiff dx TECHNIQUE: Contiguous axial scanning of the abdomen and pelvis following administration of 90 ml Isov ue 300 IV contrast. Delayed images through the kidneys and coronal/sagittal reconstructions performe d. CT DLP: 842.3 mGycm Automated exposure control for dose reduction was used. FINDINGS: Generalized anasarca change. Heart upper limits of normal in size without pericardial effusion. The a telectasis at the lower lungs. No focal liver lesion or biliary ductal dilatation. Portal venous system is patent. Gallbladder collapsed with a phrygian cap. Adrenal glands, spleen, and pancreas within normal limits. Kidneys show symmetric uptake and excretion of contrast with axial hypodensity and some perinephric e janell. Tiny fatty umbilical hernia. Subcutaneous air anterior lower abdomen in keeping with subcutaneous inj ections. No dilated small bowel, free fluid, or free air. No mesenteric or retroperitoneal lymphadenopathy is seen. Normal appendix. Oral contrast progressed to the hepatic flexure of the colon. There is left-sided colonic diverticulo sis. Mild segmental colonic wall thickening may be due to nondistention or a mild colitis. Limited assessment of the pelvis due to extensive streak and beam hardening artifact from the patient 's right total hip orthoplasty. Uterus is anteverted. No obvious abnormal fluid collection the pelvis or pelvic lymphadenopathy. Pelvic phleboliths. Bones: Right hip total arthroplasty. Mild degenerative change left hip. 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 IMPRESSION: 1. PATCHY HYPOENHANCEMENT OF BOTH KIDNEYS. CORRELATE FOR BILATERAL PYELONEPHRITIS. 2. MILD SEGMENTAL COLONIC WALL THICKENING MAY BE DUE TO NONDISTENTION VERSUS A NONSPECIFIC MILD COLIT IS. 3. HEART BORDERLINE ENLARGED WITH ANASARCA CHANGES. CORRELATE FOR FLUID OVERLOAD STATE/THIRD SPACING. 4. LEFT-SIDED COLONIC DIVERTICULOSIS WITHOUT ACUTE DIVERTICULITIS.
--- NOTE | 2024-02-05 19:46 | P.PN ---
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 difficile colitis, she was treated with vancomycin 125 mg orally 4 times every day for about 4 weeks, and she came to the office for evaluation and follow-up few days ago, and she was feeling a bit better, however she presented to the yesterday to the office with increased dizziness lightheadedness not able to keep anything down and severe diarrhea not able to tolerate anything she has not been eating anything at this time, she patient was hypotensive she was referred to the emergency department for evaluation had a CT deferred toxins came back positive, she was started on IV fluid resuscitation, she was placed on vancomycin to 50 mg orally 4 times every day, consulted infectious disease to see if the patient is a candidate for Dificid 200 mg orally twice every day since she had failed the first management, patient also will be started on Questran 4 g orally twice every day, she will place on probiotic as well, I will admit the patient to the hospital because of significant hypovolemic hyponatremia and significant orthostatic changes. 02/03: Patient is laying down in bed continues to have loose stool, better than he was yesterday, continues to have abdominal cramps associate with nausea but no vomiting, she continues to have a loose bowel movement every time she has anything to eat, she has no fever or chills at this time, she seems to be tolerating the new medication Dr. Martel has switched her to Dificid 200 mg orally twice every day vancomycin was stopped, we will continue to follow-up the patient very closely, I will discontinue IV fluid at this time, if her symptoms are not better we will obtain CT scan of the abdomen pelvis tomorrow morning if she is not getting better. 02/04: Patient is laying down in bed, she continues to have diarrhea, she continues to have increased abdominal pain, she underwent CT scan of the abdomen pelvis that showed evidence of mild colitis, diverticulosis, possible perisplenic edema, minimal anasarca due to fluid overload, discontinue IV fluid, give the patient Lasix 20 mg IV push x 1, continue Dificid 200 mg orally twice every day, continue Questran 4 g orally twice every day, avoid dairy products, avoid vegetables and fresh fruits, continue yogurt, monitor the patient very closely, discussed with her and with her at the bedside. REVIEW OF SYSTEMS: Constitutional: No documented fever, no chills, no night sweats. No weight change. positive for weakness, positive for fatigue or lethargy. No daytime sleepiness. EENT: No headache. No blurred vision or double vision, no loss of vision. No loss of Hearing, no ringing in the ears, no dizziness. No nasal drainage or congestion. No epistaxis. No sore throat. Lungs: No shortness of breath, no cough, no sputum production. No wheezing. Reports dyspnea with activity. Cardiovascular: No chest pain, no lower extremity edema. No palpitations. No paroxysmal nocturnal dyspnea. No orthopnea. No lightheadedness or dizziness. No syncopal episodes. Abdominal: Reports abdominal pain. positive for nausea, vomiting. positive for diarrhea. No constipation. No bloody or tarry stools reports loss of appetite. Genitourinary: No dysuria, increased frequency, urgency. No urinary retention. Musculoskeletal: No myalgias. positive for muscle weakness, positive for gait dysfunction, no frequent falls. No back pain. No neck pain. Integumentary: right leg with scab No rash or pruritus. No unusual bruising. No change in hair or nails. Neurologic: No aphasia. No facial droop. No change in mentation. No head injury. No headache. No paralysis. No paresthesia. Psychiatric: No depression. No anxiety. No mood swings. Endocrine: No abnormal blood sugars. No weight change. PHYSICAL EXAMINATION: General: This is a an 83-year-old female who is laying down in bed in no apparent distress. HEENT: Head is atraumatic, normocephalic, pupils were equal round reactive to light and recommendation, extraocular muscle movement were intact, sclera nonicteric, conjunctivae were pale, mucous membranes of the mouth are somewhat dry. Neck: Supple, no JVP, normal carotid upstroke bilaterally, no lymphadenopathy. Chest: Decreased breath sounds at the bases, few rhonchi, no expiratory wheezes, no chest wall tenderness, no intercostal retractions. Heart: First heart sound is normal, second heart sound is normal there is systolic ejection murmur 2/6 located in the left sternal border. Abdomen: Soft, mild tenderness to the left lower quadrant , nondistended, positive bowel sounds. Extremities: There is no edema no calf tenderness DP +2 bilaterally, there is an denuded hemorrhagic blister from the lower aspect of the right leg with an eschar on top of it. Neurologic examination: Patient is awake alert and oriented x3, cranial nerves II-12 appear grossly intact, muscle power were 5 out of 5 in upper extremities and 5 out of 5 in bilateral lower extremities, deep tendon reflexes normal bilaterally. 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 Continue patient on Dificid 200 mg orally twice every day for the next 10 days, continue with Questran 4 g orally twice every day, monitor the patient symptoms very closely, continue current pain management with Tylenol and Motrin, CT scan of the abdomen and pelvis reviewed showed evidence of mild colitis, diverticulosis, anasarca. 2. Hypovolemic hyponatremia. Discontinue IV fluid give the patient Lasix 20 mg IV push x 1. 3. Hypertension and hypertensive cardiovascular disease. Continue patient on carvedilol 37.5 mg orally twice every day, continue patient on losartan 100 mg orally once every day. Monitor the patient blood pressure very closely. 4. Mixed hyperlipidemia. Continue patient on rosuvastatin 10 mg once every day, monitor the patient lipid panel, keep LDL 55-70. 5. Osteopenia. Continue patient on alendronate 70 mg once every week, continue calcium 1200 mg once every day, continue vitamin D3 2000 unit once every day. Patient is up-to-date on her DEXA scan. 6. Vitamin D deficiency. Continue vitamin D3 2000 units once every day. 7. Osteoarthritis. Continue current pain management. 8. DVT prophylaxis. Start the patient on Lovenox 40 mg subcutaneous every 24 hours. Bilateral knee-high SONI hose. 9. GI prophylaxis. Continue patient on famotidine 20 mg at bedtime. 10. Physical therapy evaluation. 11. Disposition is likely home. Objective - Vital Signs Vital signs: Vital Signs Temp 97.3 F L 02/05/24 07:06 Pulse 77 02/05/24 07:06 Resp 18 02/05/24 07:06 BP 106/69 02/05/24 07:06 Pulse Ox 93 L 02/05/24 07:06 FiO2 Intake & Output 02/04/24 02/05/24 02/05/24 18:59 06:59 18:59 Other: Voiding Method Toilet Toilet # Voids 1 1 # Bowel Movements 1 2 - Labs CBC & Chem 7: 02/05/24 06:33 02/05/24 06:33 Labs: Abnormal Lab Results - Last 24 Hours (Table) 02/05/24 02/05/24 Range/Units 06:33 06:33 WBC 17.12 H (4.50-10.00) X 10*3/uL RBC 3.12 L (4.10-5.20) X 10*6/uL Hgb 10.6 L (12.0-15.0) g/dL Hct 31.7 L (37.2-46.3) % MCV 101.6 H (80.0-97.0) FL MCH 34.0 H (27.0-32.0) pg Immature Gran # 0.10 H (0.00-0.04) X 10*3/uL Neutrophils # 13.23 H (1.80-7.70) X 10*3/uL Monocytes # 1.50 H (0.20-1.00) X 10*3/uL Eosinophils # 0 L (0.04-0.35) X 10*3/uL Sodium 128 L (135-145) mmol/L Carbon Dioxide 19.1 L (21.6-31.8) mmol/L BUN 4.8 L (9.0-27.0) mg/dL BUN/Creatinine Ratio 8.00 L (12.00-20.00) Ratio Glucose 117 H (70-110) mg/dL Calcium 8.5 L (8.7-10.3) mg/dL AST 11 L (13-35) U/L Total Protein 5.7 L (6.2-8.2) g/dL Albumin 3.5 L (3.8-4.9) g/dL Albumin/Globulin Ratio 1.59 L (1.60-3.17) Ratio Microbiology - Last 24 Hours (Table) 02/02/24 18:11 Blood Culture - Preliminary Blood
[2024-02-05] MEDS: FUROSEMIDE 10 MG/ML 2 ML VIAL IV ONE (20:19)
[2024-02-05] MEDS: IBUPROFEN 600 MG TAB PO PRN (20:20)
[2024-02-06 08:51] LABS: Basophils # (A) 0.05 X 10*3/uL (0.00-0.10); Basophils % (A) 0.3 %; Eosinophils # (A) 0 X 10*3/uL (0.04-0.35); Eosinophils % (A) 0 %; HCT 32.3 % (37.2-46.3); HGB 10.7 g/dL (12.0-15.0); Lymphocytes # (A) 1.61 X 10*3/uL (0.90-5.00); Lymphocytes % (A) 11.1 %; MCH 33.2 pg (27.0-32.0); MCHC 33.1 g/dL (32.0-37.0); MCV 100.3 FL (80.0-97.0); Mean Platelet Volume 10.1 FL (9.5-12.2); Monocytes # (A) 1.56 X 10*3/uL (0.20-1.00); Monocytes % (A) 10.8 %; NRBC Per 100 WBC 0 X 10*3/uL (0.00-0.01); Neutrophils # (A) 11.14 X 10*3/uL (1.80-7.70); Neutrophils % (A) 77.2 %; Platelet Count 253 X 10*3/uL (140-440); RBC 3.22 X 10*6/uL (4.10-5.20); RDW 13.4 % (11.5-14.5); WBC 14.45 X 10*3/uL (4.50-10.00)
[2024-02-06 10:39] LABS: ALT 18 U/L (8-44); AST 17 U/L (13-35); Albumin 3.2 g/dL (3.8-4.9); Albumin/Globulin Ratio 1.52 Ratio (1.60-3.17); Alkaline Phosphatase 88 U/L (41-126); Blood Urea Nitrogen 5.4 mg/dL (9.0-27.0); Calcium 8.8 mg/dL (8.7-10.3); Carbon Dioxide 23.1 mmol/L (21.6-31.8); Chloride 98 mmol/L (96-109); Globulin 2.1 g/dL (1.6-3.3); Glucose 103 mg/dL (70-110); Potassium 3.9 mmol/L (3.5-5.5); Sodium 132 mmol/L (135-145); Total Bilirubin 0.2 mg/dL (0.3-1.2); Total Protein 5.3 g/dL (6.2-8.2)
--- NOTE | 2024-02-06 13:21 | P.PN ---
Subjective Progress Note Date: 02/06/24 Principal diagnosis: Reason for follow-up is C. difficile colitis Patient is a 83-year-old female with a past medical history significant for hypertension recently exposed antibiotic for the right lower extremity laceration subsequent developing C. difficile colitis that has been treated with oral vancomycin with persistent symptoms the patient has been admitted to the hospital. On today's evaluation that is 02/06/2024, Patient is afebrile patient is currently on room air and denies having any shortness of breath, the patient denies any chest pain or cough, the patient did have some nausea but no vomiting still, some crampy abdominal pain with bowel movements diarrhea frequency has decreased but still having loose stool no blood or mucus in the stool. Patient white. 14.45, creatinine 0.5 patient did have abdominal pelvis CT last evening which did show some mild segmental colonic wall thickening mild colitis Objective - Vital Signs Vital signs: Vital Signs Temp 97.5 F L 02/06/24 06:52 Pulse 85 02/06/24 06:52 Resp 18 02/06/24 06:52 BP 165/83 02/06/24 06:52 Pulse Ox 95 02/06/24 06:52 FiO2 Intake & Output 02/05/24 02/06/24 02/06/24 18:59 06:59 18:59 Intake Total 400 Balance 400 Intake: Intake, IV Titration 400 Amount Sodium Chloride 0.9% 1, 400 000 ml @ 50 mls/hr IV . Q20H [facility] Rx#:[id number] Other: Voiding Method Toilet # Voids 2 - Exam GENERAL DESCRIPTION: An elderly female lying in bed in no distress RESPIRATORY SYSTEM: Unlabored breathing , decreased breath sounds at bases HEART: S1 S2 regular rate and rhythm , ABDOMEN: Soft , no tenderness EXTREMITIES: No edema feet - Labs CBC & Chem 7: 02/06/24 06:07 02/06/24 06:07 Labs: Abnormal Lab Results - Last 24 Hours (Table) 02/06/24 02/06/24 Range/Units 06:07 06:07 WBC 14.45 H (4.50-10.00) X 10*3/uL RBC 3.22 L (4.10-5.20) X 10*6/uL Hgb 10.7 L (12.0-15.0) g/dL Hct 32.3 L (37.2-46.3) % MCV 100.3 H (80.0-97.0) FL MCH 33.2 H (27.0-32.0) pg Immature Gran # 0.09 H (0.00-0.04) X 10*3/uL Neutrophils # 11.14 H (1.80-7.70) X 10*3/uL Monocytes # 1.56 H (0.20-1.00) X 10*3/uL Eosinophils # 0 L (0.04-0.35) X 10*3/uL Sodium 132 L (135-145) mmol/L BUN 5.4 L (9.0-27.0) mg/dL Creatinine 0.5 L (0.6-1.5) mg/dL BUN/Creatinine Ratio 10.80 L (12.00-20.00) Ratio Total Bilirubin 0.2 L (0.3-1.2) mg/dL C-Reactive Protein 13.30 H (0.00-0.80) mg/dL Total Protein 5.3 L (6.2-8.2) g/dL Albumin 3.2 L (3.8-4.9) g/dL Albumin/Globulin Ratio 1.52 L (1.60-3.17) Ratio Microbiology - Last 24 Hours (Table) 02/02/24 18:11 Blood Culture - Preliminary Blood Assessment and Plan (1) C. difficile colitis Current Visit: Yes Status: Acute Code(s): A04.72 - ENTEROCOLITIS D/T CLOSTR IDIUM DIFFICILE, NOT SPCF RECUR SNOMED Code(s): 875340667 (2) Leukocytosis Current Visit: Yes Status: Acute Code(s): D72.829 - ELEVATED WHITE BLOOD CELL COUNT, UNSPECIFIED SNOMED Code(s): 300790919 Plan: 1patient presented hospital with severe diarrhea that has been going on for the last few weeks and apparently the patient has failed outpatient oral vancomycin therapy 2-patient diarrhea frequency slightly increased the patient white count is trending down, CT abdominal pelvis CT shows mild colitis we will continue patient on Dificid and Questran encouraged to increase her probiotic and yogurt intake questions answered Dictation was produced using [employer] software. please excuse any grammatical, word or spelling errors. Time with Patient: Less than 30
--- NOTE | 2024-02-06 16:30 | P.PN ---
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 after she was admitted for severe abdominal pain associated with severe diarrhea she was diagnosed with C. difficile colitis, she was treated with vancomycin 125 mg orally 4 times every day for about 4 weeks, and she came to the office for evaluation and follow-up few days ago, and she was feeling a bit better, however she presented to the yesterday to the office with increased dizziness lightheadedness not able to keep anything down and severe diarrhea not able to tolerate anything she has not been eating anything at this time, she patient was hypotensive she was referred to the emergency department for evaluation had a CT deferred toxins came back positive, she was started on IV fluid resuscitation, she was placed on vancomycin to 50 mg orally 4 times every day, consulted infectious disease to see if the patient is a candidate for Dificid 200 mg orally twice every day since she had failed the first management, patient also will be started on Questran 4 g orally twice every day, she will place on probiotic as well, I will admit the patient to the hospital because of significant hypovolemic hyponatremia and significant orthostatic changes. 02/03: Patient is laying down in bed continues to have loose stool, better than he was yesterday, continues to have abdominal cramps associate with nausea but no vomiting, she continues to have a loose bowel movement every time she has anything to eat, she has no fever or chills at this time, she seems to be tolerating the new medication Dr. Martel has switched her to Dificid 200 mg orally twice every day vancomycin was stopped, we will continue to follow-up the patient very closely, I will discontinue IV fluid at this time, if her symptoms are not better we will obtain CT scan of the abdomen pelvis tomorrow morning if she is not getting better. 02/04: Patient is laying down in bed, she continues to have diarrhea, she continues to have increased abdominal pain, she underwent CT scan of the abdomen pelvis that showed evidence of mild colitis, diverticulosis, possible perisplenic edema, minimal anasarca due to fluid overload, discontinue IV fluid, give the patient Lasix 20 mg IV push x 1, continue Dificid 200 mg orally twice every day, continue Questran 4 g orally twice every day, avoid dairy products, avoid vegetables and fresh fruits, continue yogurt, monitor the patient very closely, discussed with her and with her at the bedside. 02/05: Patient is feeling better today, she is less short of breath, her IV fluid is Hep-Lock, she is ambulating a bit better today, she continues to have loose stool, better than yesterday, she is able to tolerate her diet, less abdominal cramping, will continue to monitor the patient very closely hopefully home in the next 24 hours, patient white count is down and we will continue to monitor CBC over the next 24 hours. REVIEW OF SYSTEMS: Constitutional: No documented fever, no chills, no night sweats. No weight change. positive for weakness, positive for fatigue or lethargy. No daytime sleepiness. EENT: No headache. No blurred vision or double vision, no loss of vision. No loss of Hearing, no ringing in the ears, no dizziness. No nasal drainage or congestion. No epistaxis. No sore throat. Lungs: No shortness of breath, no cough, no sputum production. No wheezing. Reports dyspnea with activity. Cardiovascular: No chest pain, no lower extremity edema. No palpitations. No paroxysmal nocturnal dyspnea. No orthopnea. No lightheadedness or dizziness. No syncopal episodes. Abdominal: Reports abdominal pain. positive for nausea, vomiting. positive for diarrhea. No constipation. No bloody or tarry stools reports loss of appetite. Genitourinary: No dysuria, increased frequency, urgency. No urinary retention. Musculoskeletal: No myalgias. positive for muscle weakness, positive for gait dysfunction, no frequent falls. No back pain. No neck pain. Integumentary: right leg with scab No rash or pruritus. No unusual bruising. No change in hair or nails. Neurologic: No aphasia. No facial droop. No change in mentation. No head injury. No headache. No paralysis. No paresthesia. Psychiatric: No depression. No anxiety. No mood swings. Endocrine: No abnormal blood sugars. No weight change. PHYSICAL EXAMINATION: General: This is a an 83-year-old female who is laying down in bed in no apparent distress. HEENT: Head is atraumatic, normocephalic, pupils were equal round reactive to light and recommendation, extraocular muscle movement were intact, sclera nonicteric, conjunctivae were pale, mucous membranes of the mouth are somewhat dry. Neck: Supple, no JVP, normal carotid upstroke bilaterally, no lymphadenopathy. Chest: Decreased breath sounds at the bases, few rhonchi, no expiratory wheezes, no chest wall tenderness, no intercostal retractions. Heart: First heart sound is normal, second heart sound is normal there is systolic ejection murmur 2/6 located in the left sternal border. Abdomen: Soft, mild tenderness to the left lower quadrant , nondistended, positive bowel sounds. Extremities: There is no edema no calf tenderness DP +2 bilaterally, there is an denuded hemorrhagic blister from the lower aspect of the right leg with an eschar on top of it. Neurologic examination: Patient is awake alert and oriented x3, cranial nerves II-12 appear grossly intact, muscle power were 5 out of 5 in upper extremities and 5 out of 5 in bilateral lower extremities, deep tendon reflexes normal bilaterally. 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 Continue patient on Dificid 200 mg orally twice every day for the next 10 days, continue with Questran 4 g orally twice every day, monitor the patient symptoms very closely, continue current pain management with Tylenol and Motrin, CT scan of the abdomen and pelvis reviewed showed evidence of mild colitis, diverticulosis, anasarca. 2. Hypovolemic hyponatremia. Resolved. 3. Hypertension and hypertensive cardiovascular disease. Continue patient on carvedilol 37.5 mg orally twice every day, continue patient on losartan 100 mg orally once every day. Monitor the patient blood pressure very closely. 4. Mixed hyperlipidemia. Continue patient on rosuvastatin 10 mg once every day, monitor the patient lipid panel, keep LDL 55-70. 5. Osteopenia. Continue patient on alendronate 70 mg once every week, continue calcium 1200 mg once every day, continue vitamin D3 2000 unit once every day. Patient is up-to-date on her DEXA scan. 6. Vitamin D deficiency. Continue vitamin D3 2000 units once every day. 7. Osteoarthritis. Continue current pain management. 8. DVT prophylaxis. Start the patient on Lovenox 40 mg subcutaneous every 24 hours. Bilateral knee-high SONI hose. 9. GI prophylaxis. Continue patient on famotidine 20 mg at bedtime. 10. Physical therapy evaluation. 11. Fluid overload. Patient was taken off IV fluid, patient was given Lasix 20 mg IV push yesterday. 12. Hopefully home tomorrow morning. Objective - Vital Signs Vital signs: Vital Signs Temp 97.5 F L 02/06/24 06:52 Pulse 85 02/06/24 06:52 Resp 18 02/06/24 06:52 BP 165/83 02/06/24 06:52 Pulse Ox 95 02/06/24 06:52 FiO2 Intake & Output 02/05/24 02/06/24 02/06/24 18:59 06:59 18:59 Intake Total 400 Balance 400 Intake: Intake, IV Titration 400 Amount Sodium Chloride 0.9% 1, 400 000 ml @ 50 mls/hr IV . Q20H [facility] Rx#:[id number] Other: Voiding Method Toilet # Voids 2 - Labs CBC & Chem 7: 02/06/24 06:07 02/06/24 06:07 Labs: Abnormal Lab Results - Last 24 Hours (Table) 02/06/24 02/06/24 Range/Units 06:07 06:07 WBC 14.45 H (4.50-10.00) X 10*3/uL RBC 3.22 L (4.10-5.20) X 10*6/uL Hgb 10.7 L (12.0-15.0) g/dL Hct 32.3 L (37.2-46.3) % MCV 100.3 H (80.0-97.0) FL MCH 33.2 H (27.0-32.0) pg Immature Gran # 0.09 H (0.00-0.04) X 10*3/uL Neutrophils # 11.14 H (1.80-7.70) X 10*3/uL Monocytes # 1.56 H (0.20-1.00) X 10*3/uL Eosinophils # 0 L (0.04-0.35) X 10*3/uL Sodium 132 L (135-145) mmol/L BUN 5.4 L (9.0-27.0) mg/dL Creatinine 0.5 L (0.6-1.5) mg/dL BUN/Creatinine Ratio 10.80 L (12.00-20.00) Ratio Total Bilirubin 0.2 L (0.3-1.2) mg/dL C-Reactive Protein 13.30 H (0.00-0.80) mg/dL Total Protein 5.3 L (6.2-8.2) g/dL Albumin 3.2 L (3.8-4.9) g/dL Albumin/Globulin Ratio 1.52 L (1.60-3.17) Ratio Microbiology - Last 24 Hours (Table) 02/02/24 18:11 Blood Culture - Preliminary Blood
[2024-02-07 09:37] LABS: BUN/Creat Ratio 15.75 Ratio (12.00-20.00); Blood Urea Nitrogen 6.3 mg/dL (9.0-27.0); Calcium 9.1 mg/dL (8.7-10.3); Carbon Dioxide 23.5 mmol/L (21.6-31.8); Chloride 98 mmol/L (96-109); Glucose 104 mg/dL (70-110); Potassium 3.8 mmol/L (3.5-5.5); Sodium 132 mmol/L (135-145)
--- NOTE | 2024-02-07 10:45 | P.PN ---
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 difficile colitis, she was treated with vancomycin 125 mg orally 4 times every day for about 4 weeks, and she came to the office for evaluation and follow-up few days ago, and she was feeling a bit better, however she presented to the yesterday to the office with increased dizziness lightheadedness not able to keep anything down and severe diarrhea not able to tolerate anything she has not been eating anything at this time, she patient was hypotensive she was referred to the emergency department for evaluation had a CT deferred toxins came back positive, she was started on IV fluid resuscitation, she was placed on vancomycin to 50 mg orally 4 times every day, consulted infectious disease to see if the patient is a candidate for Dificid 200 mg orally twice every day since she had failed the first management, patient also will be started on Questran 4 g orally twice every day, she will place on probiotic as well, I will admit the patient to the hospital because of significant hypovolemic hyponatremia and significant orthostatic changes. 02/03: Patient is laying down in bed continues to have loose stool, better than he was yesterday, continues to have abdominal cramps associate with nausea but no vomiting, she continues to have a loose bowel movement every time she has anything to eat, she has no fever or chills at this time, she seems to be tolerating the new medication Dr. Martel has switched her to Dificid 200 mg orally twice every day vancomycin was stopped, we will continue to follow-up the patient very closely, I will discontinue IV fluid at this time, if her symptoms are not better we will obtain CT scan of the abdomen pelvis tomorrow morning if she is not getting better. 02/04: Patient is laying down in bed, she continues to have diarrhea, she continues to have increased abdominal pain, she underwent CT scan of the abdomen pelvis that showed evidence of mild colitis, diverticulosis, possible perisplenic edema, minimal anasarca due to fluid overload, discontinue IV fluid, give the patient Lasix 20 mg IV push x 1, continue Dificid 200 mg orally twice every day, continue Questran 4 g orally twice every day, avoid dairy products, avoid vegetables and fresh fruits, continue yogurt, monitor the patient very closely, discussed with her and with her at the bedside. 02/05: Patient is feeling better today, she is less short of breath, her IV fluid is Hep-Lock, she is ambulating a bit better today, she continues to have loose stool, better than yesterday, she is able to tolerate her diet, less abdominal cramping, will continue to monitor the patient very closely hopefully home in the next 24 hours, patient white count is down and we will continue to monitor CBC over the next 24 hours. 02/06: Patient is feeling much better today, has not had any diarrhea today, she is tolerating her breakfast very well, white count still pending, continue with Dificid 200 mg orally twice every day, continue Questran 4 g orally twice every day, repeat her labs tomorrow morning, likely she will be able to be discharged home tomorrow morning, her headaches are about the same she is likely suffering from occipital neuralgia, I will start the patient on Fioricet 1 tablet every 4 hours as needed discontinue Tylenol continue Motrin as needed, increase activity, hopefully home in the next 1 to 2 days. REVIEW OF SYSTEMS: Constitutional: No documented fever, no chills, no night sweats. No weight change. positive for weakness, positive for fatigue or lethargy. No daytime sleepiness. EENT: No headache. No blurred vision or double vision, no loss of vision. No loss of Hearing, no ringing in the ears, no dizziness. No nasal drainage or congestion. No epistaxis. No sore throat. Lungs: No shortness of breath, no cough, no sputum production. No wheezing. Reports dyspnea with activity. Cardiovascular: No chest pain, no lower extremity edema. No palpitations. No paroxysmal nocturnal dyspnea. No orthopnea. No lightheadedness or dizziness. No syncopal episodes. Abdominal: Reports no abdominal pain. no nausea, vomiting. no diarrhea. No constipation. No bloody or tarry stools reports loss of appetite. Genitourinary: No dysuria, increased frequency, urgency. No urinary retention. Musculoskeletal: No myalgias. positive for muscle weakness, positive for gait dysfunction, no frequent falls. No back pain. No neck pain. Integumentary: right leg with scab No rash or pruritus. No unusual bruising. No change in hair or nails. Neurologic: No aphasia. No facial droop. No change in mentation. No head injury. positive for headache. No paralysis. No paresthesia. Psychiatric: No depression. No anxiety. No mood swings. Endocrine: No abnormal blood sugars. No weight change. PHYSICAL EXAMINATION: General: This is a an 83-year-old female who is laying down in bed in no apparent distress. HEENT: Head is atraumatic, normocephalic, pupils were equal round reactive to light and recommendation, extraocular muscle movement were intact, sclera nonicteric, conjunctivae were pale, mucous membranes of the mouth are somewhat dry. Neck: Supple, no JVP, normal carotid upstroke bilaterally, no lymphadenopathy. Chest: Decreased breath sounds at the bases, few rhonchi, no expiratory wheezes, no chest wall tenderness, no intercostal retractions. Heart: First heart sound is normal, second heart sound is normal there is systolic ejection murmur 2/6 located in the left sternal border. Abdomen: Soft, mild tenderness to the left lower quadrant , nondistended, positive bowel sounds. Extremities: There is no edema no calf tenderness DP +2 bilaterally, there is an denuded hemorrhagic blister from the lower aspect of the right leg with an eschar on top of it. Neurologic examination: Patient is awake alert and oriented x3, cranial nerves II-12 appear grossly intact, muscle power were 5 out of 5 in upper extremities and 5 out of 5 in bilateral lower extremities, deep tendon reflexes normal bilaterally. 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 Continue patient on Dificid 200 mg orally twice every day for 10 days, continue with Questran 4 g orally twice every day, monitor the patient symptoms very closely. 2. Hypovolemic hyponatremia. Stable 3. Hypertension and hypertensive cardiovascular disease. Continue patient on carvedilol 37.5 mg orally twice every day, continue patient on losartan 100 mg orally once every day. Monitor the patient blood pressure very closely. 4. Mixed hyperlipidemia. Continue patient on rosuvastatin 10 mg once every day, monitor the patient lipid panel, keep LDL 55-70. 5. Osteopenia. Continue patient on alendronate 70 mg once every week, continue calcium 1200 mg once every day, continue vitamin D3 2000 unit once every day. Patient is up-to-date on her DEXA scan. 6. Vitamin D deficiency. Continue vitamin D3 2000 units once every day. 7. Osteoarthritis. Continue current pain management. 8. DVT prophylaxis. on Lovenox 40 mg subcutaneous every 24 hours. Bilateral knee-high SONI hose. 9. GI prophylaxis. Continue patient on famotidine 20 mg at bedtime. 10. Occipital neuralgia. Started the patient on Fioricet 1 capsule every 4 hours, as needed discontinue Tylenol continue Motrin as needed, she may need to have an occipital block as an outpatient. 11. Increase activity. 12. Home in 1 to 2 days. Objective - Vital Signs Vital signs: Vital Signs Temp 98.3 F 02/07/24 08:06 Pulse 82 02/07/24 08:06 Resp 17 02/07/24 08:06 BP 106/65 02/07/24 08:06 Pulse Ox 96 02/07/24 08:06 FiO2 Intake & Output 02/06/24 02/07/24 02/07/24 18:59 06:59 18:59 Weight 62.142 kg Other: # Voids 3 2 - Labs CBC & Chem 7: 02/06/24 06:07 02/07/24 05:53 Labs: Abnormal Lab Results - Last 24 Hours (Table) 02/07/24 Range/Units 05:53 Sodium 132 L (135-145) mmol/L BUN 6.3 L (9.0-27.0) mg/dL Creatinine 0.4 L (0.6-1.5) mg/dL
[2024-02-07] MEDS: BUTALB/APAP/CAFF 50-325-40MG TAB PO PRN (11:00)
[2024-02-07 12:58] LABS: Basophils # (A) 0.05 X 10*3/uL (0.00-0.10); Basophils % (A) 0.4 %; Eosinophils # (A) 0.24 X 10*3/uL (0.04-0.35); Eosinophils % (A) 1.7 %; HCT 30.9 % (37.2-46.3); HGB 10.4 g/dL (12.0-15.0); Lymphocytes # (A) 2.18 X 10*3/uL (0.90-5.00); Lymphocytes % (A) 15.8 %; MCH 34.1 pg (27.0-32.0); MCHC 33.7 g/dL (32.0-37.0); MCV 101.3 FL (80.0-97.0); Mean Platelet Volume 10.3 FL (9.5-12.2); Monocytes # (A) 1.72 X 10*3/uL (0.20-1.00); Monocytes % (A) 12.5 %; NRBC Per 100 WBC 0 X 10*3/uL (0.00-0.01); Neutrophils # (A) 9.51 X 10*3/uL (1.80-7.70); Neutrophils % (A) 69.1 %; Platelet Count 275 X 10*3/uL (140-440); RBC 3.05 X 10*6/uL (4.10-5.20); RDW 13.6 % (11.5-14.5); WBC 13.77 X 10*3/uL (4.50-10.00)
--- NOTE | 2024-02-07 15:09 | P.PN ---
Subjective Progress Note Date: 02/07/24 Principal diagnosis: Reason for follow-up is C. difficile colitis Patient is a 83-year-old female with a past medical history significant for hypertension recently exposed antibiotic for the right lower extremity laceration subsequent developing C. difficile colitis that has been treated with oral vancomycin with persistent symptoms the patient has been admitted to the hospital. On today's evaluation that is 02/07/2024, patient has been afebrile, patient is breathing comfortably and is currently on room air, patient denies having any significant cough no chest pain shortness of breath, patient denies nausea vomiting improvement with abdominal pain and did have resolution of diarrhea with no bowel movement since yesterday 3 PM. Patient white count is down to 13.77 creatinine 0.4 Objective - Vital Signs Vital signs: Vital Signs Temp 98.3 F 02/07/24 08:06 Pulse 82 02/07/24 08:06 Resp 17 02/07/24 08:06 BP 106/65 02/07/24 08:06 Pulse Ox 96 02/07/24 08:06 FiO2 Intake & Output 02/06/24 02/07/24 02/07/24 18:59 06:59 18:59 Weight 62.142 kg Other: # Voids 3 2 - Exam GENERAL DESCRIPTION: An elderly female lying in bed in no distress RESPIRATORY SYSTEM: Unlabored breathing , decreased breath sounds at bases HEART: S1 S2 regular rate and rhythm , ABDOMEN: Soft , no tenderness EXTREMITIES: No edema feet - Labs CBC & Chem 7: 02/07/24 05:53 02/07/24 05:53 Labs: Abnormal Lab Results - Last 24 Hours (Table) 02/07/24 Range/Units 05:53 Sodium 132 L (135-145) mmol/L BUN 6.3 L (9.0-27.0) mg/dL Creatinine 0.4 L (0.6-1.5) mg/dL Assessment and Plan (1) C. difficile colitis Current Visit: Yes Status: Acute Code(s): A04.72 - ENTEROCOLITIS D/T CLOSTRIDIUM DIFFICILE, NOT SPCF RECUR SNOMED Code(s): 220717432 (2) Leukocytosis Current Visit: Yes Status: Acute Code(s): D72.829 - ELEVATED WHITE BLOOD CELL COUNT, UNSPECIFIED SNOMED Code(s): 801966030 Plan: 1patient presented hospital with severe diarrhea that has been going on for the last few weeks and apparently the patient has failed outpatient oral vancomycin therapy 2-patient did have resolution of her diarrhea and white count is trending down we will continue the patient on Dificid however discontinue Questran encouraged to increase her probiotic and yogurt intake Dictation was produced using [employer] dictation software. please excuse any grammatical, word or spelling errors. Time with Patient: Less than 30
[2024-02-08] MEDS: NON FORMULARY DRUG (Alendronate Sodium [Fosamax] 70 MG Tablet) PO SCH (08:02)
[2024-02-08 09:35] LABS: Basophils # (A) 0.05 X 10*3/uL (0.00-0.10); Basophils % (A) 0.5 %; Eosinophils # (A) 0.33 X 10*3/uL (0.04-0.35); HGB 10.4 g/dL (12.0-15.0); Lymphocytes # (A) 2.86 X 10*3/uL (0.90-5.00); Lymphocytes % (A) 25.7 %; MCHC 34.7 g/dL (32.0-37.0); Mean Platelet Volume 10.2 FL (9.5-12.2); Monocytes # (A) 1.36 X 10*3/uL (0.20-1.00); Monocytes % (A) 12.2 %; NRBC Per 100 WBC 0 X 10*3/uL (0.00-0.01); Neutrophils # (A) 6.41 X 10*3/uL (1.80-7.70); Neutrophils % (A) 57.7 %; Platelet Count 313 X 10*3/uL (140-440); RBC 2.97 X 10*6/uL (4.10-5.20); RDW 13.7 % (11.5-14.5); WBC 11.11 X 10*3/uL (4.50-10.00)
[2024-02-08 09:49] LABS: Blood Urea Nitrogen 8.4 mg/dL (9.0-27.0); Carbon Dioxide 23.8 mmol/L (21.6-31.8); Chloride 97 mmol/L (96-109); Glucose 103 mg/dL (70-110); Potassium 4.1 mmol/L (3.5-5.5); Sodium 133 mmol/L (135-145)
--- NOTE | 2024-02-08 11:16 | P.PN ---
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 after she was admitted for severe abdominal pain associated with severe diarrhea she was diagnosed with C. difficile colitis, she was treated with vancomycin 125 mg orally 4 times every day for about 4 weeks, and she came to the office for evaluation and follow-up few days ago, and she was feeling a bit better, however she presented to the yesterday to the office with increased dizziness lightheadedness not able to keep anything down and severe diarrhea not able to tolerate anything she has not been eating anything at this time, she patient was hypotensive she was referred to the emergency department for evaluation had a CT deferred toxins came back positive, she was started on IV fluid resuscitation, she was placed on vancomycin to 50 mg orally 4 times every day, consulted infectious disease to see if the patient is a candidate for Dificid 200 mg orally twice every day since she had failed the first management, patient also will be started on Questran 4 g orally twice every day, she will place on probiotic as well, I will admit the patient to the hospital because of significant hypovolemic hyponatremia and significant orthostatic changes. 02/03: Patient is laying down in bed continues to have loose stool, better than he was yesterday, continues to have abdominal cramps associate with nausea but no vomiting, she continues to have a loose bowel movement every time she has anything to eat, she has no fever or chills at this time, she seems to be tolerating the new medication Dr. Martel has switched her to Dificid 200 mg orally twice every day vancomycin was stopped, we will continue to follow-up the patient very closely, I will discontinue IV fluid at this time, if her symptoms are not better we will obtain CT scan of the abdomen pelvis tomorrow morning if she is not getting better. 02/04: Patient is laying down in bed, she continues to have diarrhea, she continues to have increased abdominal pain, she underwent CT scan of the abdomen pelvis that showed evidence of mild colitis, diverticulosis, possible perisplenic edema, minimal anasarca due to fluid overload, discontinue IV fluid, give the patient Lasix 20 mg IV push x 1, continue Dificid 200 mg orally twice every day, continue Questran 4 g orally twice every day, avoid dairy products, avoid vegetables and fresh fruits, continue yogurt, monitor the patient very closely, discussed with her and with her at the bedside. 02/05: Patient is feeling better today, she is less short of breath, her IV fluid is Hep-Lock, she is ambulating a bit better today, she continues to have loose stool, better than yesterday, she is able to tolerate her diet, less abdominal cramping, will continue to monitor the patient very closely hopefully home in the next 24 hours, patient white count is down and we will continue to monitor CBC over the next 24 hours. 02/06: Patient is feeling much better today, has not had any diarrhea today, she is tolerating her breakfast very well, white count still pending, continue with Dificid 200 mg orally twice every day, continue Questran 4 g orally twice every day, repeat her labs tomorrow morning, likely she will be able to be discharged home tomorrow morning, her headaches are about the same she is likely suffering from occipital neuralgia, I will start the patient on Fioricet 1 tablet every 4 hours as needed discontinue Tylenol continue Motrin as needed, increase activity, hopefully home in the next 1 to 2 days. 02/07: Patient is sitting up in bed that she is feeling better today she continues to have some cramps in the lower abdomen, her stool is not soft anymore, she has a good bowel movement today, she has no fever or chills at this time, she was taken off Questran by infectious disease yesterday, increase oral intake of fluid, increase oral intake of food, patient will likely be discharged home tomorrow morning. REVIEW OF SYSTEMS: Constitutional: No documented fever, no chills, no night sweats. No weight awan ge. positive for weakness, positive for fatigue or lethargy. No daytime sleepiness. EENT: No headache. No blurred vision or double vision, no loss of vision. No loss of Hearing, no ringing in the ears, no dizziness. No nasal drainage or congestion. No epistaxis. No sore throat. Lungs: No shortness of breath, no cough, no sputum production. No wheezing. Reports dyspnea with activity. Cardiovascular: No chest pain, no lower extremity edema. No palpitations. No paroxysmal nocturnal dyspnea. No orthopnea. No lightheadedness or dizziness. No syncopal episodes. Abdominal: Reports abdominal pain. no nausea, vomiting. no diarrhea. No constipation. No bloody or tarry stools reports loss of appetite. Genitourinary: No dysuria, increased frequency, urgency. No urinary retention. Musculoskeletal: No myalgias. positive for muscle weakness, no gait dysfunction, no frequent falls. positive for back pain. positive for neck pain. Integumentary: right leg with scab No rash or pruritus. No unusual bruising. No change in hair or nails. Neurologic: No aphasia. No facial droop. No change in mentation. No head injury. positive for headache. No paralysis. No paresthesia. Psychiatric: mild depression. No anxiety. No mood swings. Endocrine: No abnormal blood sugars. No weight change. PHYSICAL EXAMINATION: General: This is a an 83-year-old female who is laying down in bed in no apparent distress. HEENT: Head is atraumatic, normocephalic, pupils were equal round reactive to light and recommendation, extraocular muscle movement were intact, sclera nonicteric, conjunctivae were pale, mucous membranes of the mouth are somewhat dry. Neck: Supple, no JVP, normal carotid upstroke bilaterally, no lymphadenopathy. Chest: Decreased breath sounds at the bases, few rhonchi, no expiratory wheezes, no chest wall tenderness, no intercostal retractions. Heart: First heart sound is normal, second heart sound is normal there is systolic ejection murmur 2/6 located in the left sternal border. Abdomen: Soft, mild tenderness to the left lower quadrant , nondistended, positive bowel sounds. Extremities: There is no edema no calf tenderness DP +2 bilaterally, there is an denuded hemorrhagic blister from the lower aspect of the right leg with an eschar on top of it. Neurologic examination: Patient is awake alert and oriented x3, cranial nerves II-12 appear grossly intact, muscle power were 5 out of 5 in upper extremities and 5 out of 5 in bilateral lower extremities, deep tendon reflexes normal bilaterally. 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 Continue patient on Dificid 200 mg orally twice every day for 10 days, with yogurt. Increase activity. 2. Hypovolemic hyponatremia. Stable 3. Hypertension and hypertensive cardiovascular disease. Continue patient on carvedilol 37.5 mg orally twice every day, continue patient on losartan 100 mg orally once every day. Monitor the patient blood pressure very closely. 4. Mixed hyperlipidemia. Continue patient on rosuvastatin 10 mg once every day, monitor the patient lipid panel, keep LDL 55-70. 5. Osteopenia. Continue patient on alendronate 70 mg once every week, continue calcium 1200 mg once every day, continue vitamin D3 2000 unit once every day. Patient is up-to-date on her DEXA scan. 6. Vitamin D deficiency. Continue vitamin D3 2000 units once every day. 7. Osteoarthritis. Continue current pain management. 8. DVT prophylaxis. on Lovenox 40 mg subcutaneous every 24 hours. Bilateral knee-high SONI hose. 9. GI prophylaxis. Continue patient on famotidine 20 mg at bedtime. 10. Occipital neuralgia. on Fioricet 1 capsule every 4 hours, as needed discontinue Tylenol continue Motrin as needed, she may need to have an occipital block as an outpatient. 11. Increase activity. 12. Patient can be discharged home tomorrow morning. Objective - Vital Signs Vital signs: Vital Signs Temp 98.1 F 02/08/24 07:28 Pulse 75 02/08/24 07:28 Resp 16 02/08/24 07:28 BP 146/83 02/08/24 07:28 Pulse Ox 96 02/08/24 07:28 FiO2 Intake & Output 02/07/24 02/08/24 02/08/24 18:59 06:59 18:59 Other: Voiding Method Toilet Toilet # Voids 1 6 - Labs CBC & Chem 7: 02/08/24 03:40 02/08/24 03:40 Labs: Abnormal Lab Results - Last 24 Hours (Table) 02/07/24 02/08/24 02/08/24 Range/Units 05:53 03:40 03:40 WBC 13.77 H 11.11 H (4.50-10.00) X 10*3/uL RBC 3.05 L 2.97 L (4.10-5.20) X 10*6/uL Hgb 10.4 L 10.4 L (12.0-15.0) g/dL Hct 30.9 L 30.0 L (37.2-46.3) % MCV 101.3 H 101.0 H (80.0-97.0) FL MCH 34.1 H 35.0 H (27.0-32.0) pg Immature Gran # 0.07 H 0.10 H (0.00-0.04) X 10*3/uL Neutrophils # 9.51 H (1.80-7.70) X 10*3/uL Monocytes # 1.72 H 1.36 H (0.20-1.00) X 10*3/uL Sodium 133 L (135-145) mmol/L Anion Gap 12.20 H (4.00-12.00) mmol/L BUN 8.4 L (9.0-27.0) mg/dL Creatinine 0.5 L (0.6-1.5) mg/dL Microbiology - Last 24 Hours (Table) 02/02/24 18:11 Blood Culture - Final Blood
--- NOTE | 2024-02-08 12:34 | P.PN ---
Subjective Progress Note Date: 02/08/24 Principal diagnosis: Reason for follow-up is C. difficile colitis Patient is a 83-year-old female with a past medical history significant for hypertension recently exposed antibiotic for the right lower extremity laceration subsequent developing C. difficile colitis that has been treated with oral vancomycin with persistent symptoms the patient has been admitted to the hospital. On today's evaluation that is 02/08/2024, Patient is afebrile this morning and denies any chills, patient mention breathing comfortably and is currently on room air, patient denies any chest pain occasional cough patient denies any abdominal pain did have resolution of her diarrhea and a formed bowel movement this morning no nausea no vomiting. Patient white count is down to 11.1 creatinine 0.5 blood culture negative Objective - Vital Signs Vital signs: Vital Signs Temp 98.1 F 02/08/24 07:28 Pulse 75 02/08/24 07:28 Resp 16 02/08/24 07:28 BP 146/83 02/08/24 07:28 Pulse Ox 96 02/08/24 07:28 FiO2 Intake & Output 02/07/24 02/08/24 02/08/24 18:59 06:59 18:59 Other: Voiding Method Toilet Toilet # Voids 1 6 - Exam GENERAL DESCRIPTION: An elderly female up in the chair in no distress RESPIRATORY SYSTEM: Unlabored breathing , decreased breath sounds at bases HEART: S1 S2 regular rate and rhythm , ABDOMEN: Soft , no tenderness EXTREMITIES: No edema feet - Labs CBC & Chem 7: 02/08/24 03:40 02/08/24 03:40 Labs: Abnormal Lab Results - Last 24 Hours (Table) 02/07/24 02/08/24 02/08/24 Range/Units 05:53 03:40 03:40 WBC 13.77 H 11.11 H (4.50-10.00) X 10*3/uL RBC 3.05 L 2.97 L (4.10-5.20) X 10*6/uL Hgb 10.4 L 10.4 L (12.0-15.0) g/dL Hct 30.9 L 30.0 L (37.2-46.3) % MCV 101.3 H 101.0 H (80.0-97.0) FL MCH 34.1 H 35.0 H (27.0-32.0) pg Immature Gran # 0.07 H 0.10 H (0.00-0.04) X 10*3/uL Neutrophils # 9.51 H (1.80-7.70) X 10*3/uL Monocytes # 1.72 H 1.36 H (0.20-1.00) X 10*3/uL Sodium 133 L (135-145) mmol/L Anion Gap 12.20 H (4.00-12.00) mmol/L BUN 8.4 L (9.0-27.0) mg/dL Creatinine 0.5 L (0.6-1.5) mg/dL Microbiology - Last 24 Hours (Table) 02/02/24 18:11 Blood Culture - Final Blood Assessment and Plan (1) C. difficile colitis Current Visit: Yes Status: Acute Code(s): A04.72 - ENTEROCOLITIS D/T CLOSTRIDIUM DIFFICILE, NOT SPCF RECUR SNOMED Code(s): 613831599 (2) Leukocytosis Current Visit: Yes Status: Acute Code(s): D72.829 - ELEVATED WHITE BLOOD CELL COUNT, UNSPECIFIED SNOMED Code(s): 911014185 Plan: 1patient presented hospital with severe diarrhea that has been going on for the last few weeks and apparently the patient has failed outpatient oral vancomycin therapy 2-patient did have resolution of her diarrhea and white count is has almost normalized we will keep the patient on Dificid and monitor clinical course closely Question concerns were answered Dictation was produced using [employer] dictation software. please excuse any grammatical, word or spelling errors. Time with Patient: Less than 30
[2024-02-09 02:36] VITALS: RESP 15
[2024-02-09 08:08] VITALS: BP 117/63; PULSE 74; TEMP 98.4
--- NOTE | 2024-02-09 19:22 | P.DS ---
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 difficile colitis, she was treated with vancomycin 125 mg orally 4 times every day for about 4 weeks, and she came to the office for evaluation and follow-up few days ago, and she w as feeling a bit better, however she presented to the yesterday to the office with increased dizziness lightheadedness not able to keep anything down and severe diarrhea not able to tolerate anything she has not been eating anything at this time, she patient was hypotensive she was referred to the emergency department for evaluation had a CT deferred toxins came back positive, she was started on IV fluid resuscitation, she was placed on vancomycin to 50 mg orally 4 times every day, consulted infectious disease to see if the patient is a candidate for Dificid 200 mg orally twice every day since she had failed the first management, patient also will be started on Questran 4 g orally twice every day, she will place on probiotic as well, I will admit the patient to the hospital because of significant hypovolemic hyponatremia and significant orthostatic changes. 02/03: Patient is laying down in bed continues to have loose stool, better than he was yesterday, continues to have abdominal cramps associate with nausea but no vomiting, she continues to have a loose bowel movement every time she has anything to eat, she has no fever or chills at this time, she seems to be tolerating the new medication Dr. Martel has switched her to Dificid 200 mg orally twice every day vancomycin was stopped, we will continue to follow-up the patient very closely, I will discontinue IV fluid at this time, if her symptoms are not better we will obtain CT scan of the abdomen pelvis tomorrow morning if she is not getting better. 02/04: Patient is laying down in bed, she continues to have diarrhea, she con tinues to have increased abdominal pain, she underwent CT scan of the abdomen pelvis that showed evidence of mild colitis, diverticulosis, possible perisplenic edema, minimal anasarca due to fluid overload, discontinue IV fluid, give the patient Lasix 20 mg IV push x 1, continue Dificid 200 mg orally twice every day, continue Questran 4 g orally twice every day, avoid dairy products, avoid vegetables and fresh fruits, continue yogurt, monitor the patient very closely, discussed with her and with her at the bedside. 02/05: Patient is feeling better today, she is less short of breath, her IV fluid is Hep-Lock, she is ambulating a bit better today, she continues to have loose stool, better than yesterday, she is able to tolerate her diet, less abdominal cramping, will continue to monitor the patient very closely hopefully home in the next 24 hours, patient white count is down and we will continue to monitor CBC over the next 24 hours. 02/06: Patient is feeling much better today, has not had any diarrhea today, she is tolerating her breakfast very well, white count still pending, continue with Dificid 200 mg orally twice every day, continue Questran 4 g orally twice every day, repeat her labs tomorrow morning, likely she will be able to be discharged home tomorrow morning, her headaches are about the same she is likely suffering from occipital neuralgia, I will start the patient on Fioricet 1 tablet every 4 hours as needed discontinue Tylenol continue Motrin as needed, increase activity, hopefully home in the next 1 to 2 days. 02/07: Patient is sitting up in bed that she is feeling better today she continues to have some cramps in the lower abdomen, her stool is not soft anymore, she has a good bowel movement today, she has no fever or chills at this time, she was taken off Questran by infectious disease yesterday, increase oral intake of fluid, increase oral intake of food, patient will likely be discharged home tomorrow morning. 02/08: Patient sitting up in a chair no apparent distress, she did have a normal bowel movement today, she is tolerating her food very well, she has no chest pain or shortness of breath, she has no fever or chills, her labs are back to normal, patient is moving around well, she will be discharged home today and follow-up with me as an outpatient in the next week. Discharge diagnoses: 1. Recurrent C. difficile colitis with SIRS. 2. Hypovolemic hyponatremia. 3. Hypertension and hypertensive cardiovascular disease. 4. Mixed hyperlipidemia. 5. Osteopenia. 6. Vitamin D deficiency. 7. Osteoarthritis. 8. Occipital neuralgia. Patient Condition at Discharge: Fair Plan - Discharge Summary Discharge Rx Participant: Yes New Discharge Prescriptions: New Fidaxomicin [Dificid] 200 mg PO BID #20 tablet Continue Aspirin 81 mg PO DAILY Multivitamin/Iron/Folic Acid [Centrum Complete Multivit Tab] 1 tab PO DAILY Calcium Carbonate/Vitamin D3 [Caltrate 600 Plus D3 Tablet] 1 tab PO BID Folic Acid 800 mg PO DAILY Losartan Potassium 100 mg PO DAILY Cholecalciferol [Vitamin D3 (125 Mcg = 5000 Iu)] 125 mcg PO DAILY carvediloL [Coreg] 37.5 mg PO BID Vit C/E/Zn/Coppr/Lutein/Zeaxan [Preservision Areds 2 Softgel] 1 cap PO DAILY Rosuvastatin [Crestor] 10 mg PO DAILY Alendronate Sodium [Fosamax] 70 mg PO GRAHAM Spironolactone 12.5 mg PO DAILY Discontinued Cholestyramine/Aspartame [Cholestyramine Light Packet] 4 gm PO DAILY Discharge Medication List Aspirin 81 mg PO DAILY 12/07/13 [History] Multivitamin/Iron/Folic Acid [Centrum Complete Multivit Tab] 1 tab PO DAILY 12/07/13 [History] Calcium Carbonate/Vitamin D3 [Caltrate 600 Plus D3 Tablet] 1 tab PO BID 01/05/14 [History] Folic Acid 800 mg PO DAILY 01/06/14 [History] Losartan Potassium 100 mg PO DAILY 06/20/14 [History] Alendronate Sodium [Fosamax] 70 mg PO GRAHAM 12/31/23 [History] Cholecalciferol [Vitamin D3 (125 Mcg = 5000 Iu)] 125 mcg PO DAILY 12/31/23 [History] Rosuvastatin [Crestor] 10 mg PO DAILY 12/31/23 [History] Spironolactone 12.5 mg PO DAILY 12/31/23 [History] Vit C/E/Zn/Coppr/Lutein/Zeaxan [Preservision Areds 2 Softgel] 1 cap PO DAILY 12/31/23 [History] carvediloL [Coreg] 37.5 mg PO BID 12/31/23 [History] Fidaxomicin [Dificid] 200 mg PO BID #20 tablet 02/03/24 [Rx] Follow up Appointment(s)/Referral(s): Artis Magaña MD [Primary Care Provider] - 02/11/24 12:15 pm Patient Instructions/Handouts: C. Diff (Clostridioides Difficile) Infection (DC) Discharge Disposition: HOME SELF-CARE
--- NOTE | 2024-02-10 14:30 | P.PN ---
Subjective Progress Note Date: 02/09/24 Principal diagnosis: Reason for follow-up is C. difficile colitis Patient is a 83-year-old female with a past medical history significant for hypertension recently exposed antibiotic for the right lower extremity laceration subsequent developing C. difficile colitis that has been treated with oral vancomycin with persistent symptoms the patient has been admitted to the hospital. On today's evaluation that is 02/09/2024,the patient denies any fever or any chills, patient is breathing comfortably on room air, the patient denies chest pain shortness of breath and no significant cough, patient denies abdominal pain, no nausea vomiting and did have improvement her diarrhea has been complaining of some headache today. Patient did not have any laboratory work was noted 11,000 yesterday blood culture has been negative Objective - Vital Signs Vital signs: Vital Signs Temp 98.4 F 02/09/24 07:03 Pulse 74 02/09/24 07:03 Resp 15 02/09/24 07:03 BP 117/63 02/09/24 07:03 Pulse Ox 95 02/09/24 07:03 FiO2 Intake & Output 02/08/24 02/09/24 02/09/24 18:59 06:59 18:59 Other: Voiding Method Toilet Toilet Toilet # Voids 8 1 # Bowel Movements 2 - Exam GENERAL DESCRIPTION: An elderly female up in the chair in no distress RESPIRATORY SYSTEM: Unlabored breathing , decreased breath sounds at bases HEART: S1 S2 regular rate and rhythm , ABDOMEN: Soft , no tenderness EXTREMITIES: No edema feet - Labs CBC & Chem 7: 02/08/24 03:40 02/08/24 03:40 Assessment and Plan (1) C. difficile colitis Status: Acute Code(s): A04.72 - ENTEROCOLITIS D/T CLOSTRIDIUM DIFFICILE, NOT SPCF RECUR SNOMED Code(s): 590457848 (2) Leukocytosis Status: Acute Code(s): D72.829 - ELEVATED WHITE BLOOD CELL COUNT, UNSPECIFIED SNOMED Code(s): 630692306 Plan: 1patient presented hospital with severe diarrhea that has been going on for the last few weeks and apparently the patient has failed outpatient oral vancomycin therapy 2-patient did have resolution of her diarrhea and white count down to 11,000 yesterday no CBC was done today she will continue with Dificid to finish her course of therapy and close outpatient follow-up Dictation was produced using [employer] software. please excuse any grammatical, word or spelling errors. Time with Patient: Less than 30
== END 2024-02-09 14:25 | disposition home or self-care (01) | DRG 372 ==
LOC: EC 16:39 → 4SSUR 18:05 → OBSVTOIN 02-05 10:32
PROVIDERS: ADMIT Internal Medicine; ATTEND Internal Medicine
DX: A04.71 Enterocolitis due to Clostridium difficile, recurrent (principal); E87.1 Hypo-osmolality and hyponatremia; E55.9 Vitamin D deficiency, unspecified; E78.2 Mixed hyperlipidemia; E86.1 Hypovolemia; M47.814 Spondylosis without myelopathy or radiculopathy, thoracic region; I11.9 Hypertensive heart disease without heart failure; E87.70 Fluid overload, unspecified; M47.816 Spondylosis without myelopathy or radiculopathy, lumbar region; I95.9 Hypotension, unspecified; I35.0 Nonrheumatic aortic (valve) stenosis; E66.9 Obesity, unspecified; Z68.26 Body mass index [BMI] 26.0-26.9, adult; Z96.653 Presence of artificial knee joint, bilateral; M19.90 Unspecified osteoarthritis, unspecified site; M54.81 Occipital neuralgia; M81.0 Age-related osteoporosis without current pathological fracture; Z79.82 Long term (current) use of aspirin; Z79.83 Long term (current) use of bisphosphonates; Z79.899 Other long term (current) drug therapy; Z85.828 Personal history of other malignant neoplasm of skin; Z88.5 Allergy status to narcotic agent; Z88.2 Allergy status to sulfonamides; Z86.19 Personal history of other infectious and parasitic diseases
CPT/HCPCS: 36415; 74177; 80048; 80053; 81001; 83605; 83735; 84100; 84484; 85025; 85610; 85730; 86140; 87040; 87493; 93005; 99285

== ENCOUNTER → 2024-02-18 | Outpatient (CLI) | payer MEDICARE ==
--- NOTE | 2024-02-18 11:13 | USB ---
Reason for Exam: Clinical finding. Patient History: Menarche at age 14. First Full-Term at age 24. Postmenopausal. Other cancer. Patient used Hormonal Contraceptives for 5 years. Daughter had breast cancer, age 43. Daughter had breast cancer, age 49. Mother had breast cancer, age 89. Risk Values: Amelia 5 year model risk: 6.5%. NCI Lifetime model risk: 9.3%. Technique: Method: Targeted. Prior Study Comparison: 10/09/2021 Bilateral Screening Mammogram, [facility]. 10/10/2022 Bilateral MG 3D screening mammo w/cad, [facility]. 10/13/2023 Bilateral MG 3D screening mammo w/cad, [facility]. Findings: The area of palpable concern of the right breast, the axilla of the right breast and the retroareolar of the right breast were scanned. Solid mass at the right 3:00 location 9 cm from the nipple measuring 1.9 x 1.2 x 1.1 cm. No additional masses seen within the visualized right breast. No adenopathy present. Tissue diagnosis is advised. Overall Assessment: Suspicious, BI-RAD 4 Management: Ultrasound Core Biopsy of the right breast. A clinical breast exam by your physician is recommended on an annual basis and results should be correlated with mammographic findings. This exam should not preclude additional follow-up of suspicious palpable abnormalities. Results were given to the patient verbally at the time of exam. Electronically signed and approved by: Byron Crain M.D. Radiologis
== END | disposition home or self-care (01) ==
LOC: RADMAMWWP 10:13
PROVIDERS: ATTEND Internal Medicine
DX: N63.10 Unspecified lump in the right breast, unspecified quadrant (principal); Z78.0 Asymptomatic menopausal state; Z80.3 Family history of malignant neoplasm of breast

== ENCOUNTER → 2024-03-17 | Day surgery (SDC) | payer MEDICARE ==
--- NOTE | 2024-04-07 11:36 | MM ---
Reason for Exam: Post Procedure Mammogram. Last screening mammogram was performed 5 month(s) ago. Patient History: Menarche at age 14. First Full-Term at age 24. Postmenopausal. Other cancer. Patient used Hormonal Contraceptives for 5 years. Daughter had breast cancer, age 43. Daughter had breast cancer, age 49. Mother had breast cancer, age 89. Risk Values: Amelia 5 year model risk: 6.5%. NCI Lifetime model risk: 9.3%. Prior Study Comparison: 10/09/2021 Bilateral Screening Mammogram, [facility]. 10/10/2022 Bilateral MG 3D screening mammo w/cad, [facility]. 10/13/2023 Bilateral MG 3D screening mammo w/cad, [facility]. 02/18/2024 Right US breast limited RT, [facility]. Tissue Density: Right: The breasts are heterogeneously dense, which may obscure small masses. Pathology Description: Location: 3 o'clock. Marker Left Behind. Needle Type: Wavestream Cores: 4 Gauge: 12 The procedure of ultrasound guided core biopsy was explained to the patient. Benefits, alternatives, and risks were discussed. An informed consent was then obtained. The patient was placed in supine positioning for imaging and for the procedure. The overlying skin was prepped and draped in usual sterile fashion. Lidocaine buffered with bicarbonate was used as anesthetic into the skin and subcutaneous tissue up to area of concern in the right 3:00 breast. Under ultrasound guidance, a 12-gauge vacuum assisted biopsy gun device was used to obtain 4 core samples. Following this, a biopsy clip was left in lesion. The patient tolerated the procedure well without any immediate complication. The patient was kept in the radiology department for short stay after the procedure and then discharged home in stable condition. Postprocedure mammogram: The patient was transferred to mammography for physician ordered post procedure mammogram for clip placement verification. Impression: Successful, uncomplicated ultrasound guided core biopsy of area of concern in the right 3:00 breast, full pathology results to follow. Pathology Results: Result: Malignant, Invasive ductal carcinoma. Pathology and radiology were reviewed. Findings are concordant. RIGHT BREAST 3:00, ULTRASOUND GUIDED CORE BIOPSY: Invasive ductal carcinoma with apocrine features, preliminarily Grade 2. See Surgical Pathology Cancer Case Summary and comment. Overall Assessment: Malignant Assessment: MG diagnostic mammo RT wo CAD - Right: Known biopsy proven malignancy, BI-RAD 6. Management: Surgical Consultation of the right breast. Electronically signed and approved by: Byron Crain M.D. Radiologis
== END ==
LOC: RADUSWWP 19:12
PROVIDERS: ATTEND Surgery
DX: D05.11 Intraductal carcinoma in situ of right breast (principal); Z17.0 Estrogen receptor positive status [ER+]; Z80.3 Family history of malignant neoplasm of breast; Z78.0 Asymptomatic menopausal state; Z88.2 Allergy status to sulfonamides; Z88.3 Allergy status to other anti-infective agents; Z88.5 Allergy status to narcotic agent; Z88.6 Allergy status to analgesic agent; Z79.82 Long term (current) use of aspirin; Z79.899 Other long term (current) drug therapy
CPT/HCPCS: 77063; 77065; 77067; 88305; 88341; 88342

== ENCOUNTER 2024-04-01 10:09 | Day surgery (SDC) | payer MEDICARE ==
[~2024-04-01 10:09] MED LIST: ACETAMINOPHEN TAB 500 MG TAB PO PRN
[2024-04-01] MEDS: IV FLUID CONTINUATION 1,000 ML IV ONE (11:03)
[2024-04-01] MEDS: LACTATED RINGERS 1,000 ML IV SCH (11:03)
[2024-04-01] MEDS: ALPRAZolam 0.25 MG TAB PO STA (11:07)
[2024-04-01] MEDS: DEXAMETHASONE SOD PHOSPHATE 4 MG/ML 1 ML VIAL IV ONE (11:08)
[2024-04-01] MEDS: ONDANSETRON 4 MG/2 ML VIAL IVP ONE (11:08)
[2024-04-01] MEDS: LIDOCAINE 1% (10MG/ML) FOR IV START SQ ONE (12:15)
[2024-04-01] MEDS: HEPARIN SODIUM,PORCINE 5,000 UNIT/ML 1 ML VIAL SQ PRN (12:59)
--- NOTE | 2024-04-01 13:08 | P.HPADDEND ---
H&P Addendum H&P Addendum Date: 04/01/24 Patient's receptor status demonstrated ER/SD positive, HER2/yoanna negative. This was discussed with the patient by phone last week. Patient remains interested in lumpectomy. Will proceed with right breast wire localization lumpectomy.
--- NOTE | 2024-04-01 13:09 | P.NAPBC ---
NAP Queries - NAP Queries Was patient's case review presented at [facility] tumor board? If no, comment.: No (Computer downtime) Was patient's pathology reviewed at [facility]? If no, comment.: Yes Was breast conservation surgery offered? If no, comment.: Yes Was sentinel node biopsy offered? If no, comment.: Yes (Opted against given patient's age) Was diagnosis confirmed by percutaneous core biopsy? If no, comment.: Yes Is patient mastectomy patient?: No Was a preop referral to reconstructive surgeon offered?: Yes Clinical Stage: 1
[2024-04-01] MEDS ORDERED: LIDOCAINE 1% INJ 10MG/ML (20 ML MDV) ONE (13:14)
[2024-04-01] MEDS ORDERED: PROPOFOL 10 MG/ML 20 ML VIAL IV ONE (13:14)
[2024-04-01] MEDS ORDERED: WATER FOR INJECTION, STERILE 10 ML VIAL IV ONE (13:14)
[2024-04-01] MEDS ORDERED: fentaNYL (PF) 50 MCG/ML 2 ML AMP ONE (13:14)
[2024-04-01] MEDS ORDERED: ePHEDrine 50 MG/ML 1 ML VIAL ONE (13:14)
[2024-04-01] MEDS: BUPIVACAINE (PF) 0.25% 30 ML VIAL SQ ONE ×2 (13:40→13:57)
[2024-04-01 14:12] VITALS: TEMP 96.8
--- NOTE | 2024-04-01 14:17 | P.OP ---
Date of Procedure: 04/01/24 Procedure(s) Performed: PREOPERATIVE DIAGNOSIS: Right breast cancer POSTOPERATIVE DIAGNOSIS: Same PROCEDURE: Right Breast wire localization lumpectomy SURGEON: Yelena EBL: Minimal ANESTHESIA: General COMPLICATIONS: None OPERATIVE PROCEDURE: Patient was placed on the operating room table in the supine position. The wire entrance site was then addressed. This was present at the 3:00 location directed medially. A horizontal incision was made adjacent to the wire entrance site. I followed the wire down into the breast tissue. An adequate lumpectomy specimen then took place around the wire. Margins of 1.5-2 cm worth attempted to be achieved. Palpation of the specimen suggested that the margins were grossly adequate. The initial specimen was also painted the appropriate 6 colors. Clips were used to identify the lumpectomy cavity. The clip was confirmed to be within the lumpectomy specimen by radiology. The subcutaneous tissues were closed using 3-0 Vicryl sutures. The skin was closed using a running 4-0 Monocryl stitch. Skin glue was then applied. DISPOSITION: Stable to recovery room
[2024-04-01] MEDS: fentaNYL (PF) 50 MCG/ML 2 ML AMP IV PRN (14:26)
[2024-04-01] MEDS: KETOROLAC 15 MG/ML 1 ML VIAL IVP STA (15:30)
[2024-04-01 15:48] VITALS: BP 162/79; PULSE 67; RESP 17
[2024-04-01] MEDS ORDERED: ACETAMINOPHEN TAB 325 MG TAB PO SCH (18:00)
[2024-04-02] MEDS ORDERED: MELOXICAM 7.5 MG TAB PO SCH (09:00)
--- NOTE | 2024-04-16 09:02 | MM ---
Reason for Exam: Post Procedure Mammogram. Last screening mammogram was performed 6 month(s) ago. Patient History: Menarche at age 14. First Full-Term at age 24. Postmenopausal. Other cancer. Breast cancer, right, age 83. Patient used Hormonal Contraceptives for 5 years. 03/17/2024, Malignant US biopsy breast VAD RT on the right side. Daughter had breast cancer, age 43. Daughter had breast cancer, age 49. Mother had breast cancer, age 89. Prior Study Comparison: 10/09/2021 Bilateral Screening Mammogram, [facility]. 10/10/2022 Bilateral MG 3D screening mammo w/cad, [facility]. 10/13/2023 Bilateral MG 3D screening mammo w/cad, [facility]. Tissue Density: Right: The breasts are heterogeneously dense, which may obscure small masses. Pathology Description: Location: 3 o'clock. Needle Type: 5 cm Kopan The procedure of needle localization with wire placement and than surgical excision was explained to the patient. Benefits, alternatives, and risks were discussed. An informed consent was then obtained. The biopsy proven cancer located 3:00 position far posterior right breast is identified and targeted for localization by ultrasound. The shortest pathway for procedure was chosen. Shortest pathway was a medial approach. The overlying skin was prepped and draped in usual sterile fashion. Lidocaine was used as anesthetic into the skin and subcutaneous tissue up to the level of area of concern. A 5 cm Kopan's needle was used. It was placed via a medial approach under direct ultrasound guidance. At this point, wire was placed and the needle was withdrawn. The wire was fixed to patient's skin. Images were marked for surgeon. Mammogram in the CC projection after needle placement shows satisfactory positioning of the wire through the mass. A microclip is located just adjacent. The graft The patient tolerated the procedure well without any immediate complication. The patient was kept in the radiology department for short stay after the procedure and then taken to surgery for surgical excision. Targeted mass, adjacent microclip, and wire are identified in specimen mammogram. The patient was kept in hospital for short stay after the procedure and then discharged home in stable condition. IMPRESSION: Successful, uncomplicated ultrasound-guided needle localization with wire placement and surgical excision of biopsy-proven right breast cancer, full pathology results to follow. Pathology Results: Result: Malignant, Invasive ductal carcinoma. Pathology and radiology were reviewed. Findings are concordant. 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 All margins negative for in situ and invasive carcinoma. Overall Assessment: Malignant Assessment: MG diagnostic mammo RT wo CAD - Right: Known biopsy proven malignancy, BI-RAD 6. Management: Surgical Consultation of the right breast. Electronically signed and approved by: Dwaine Leslie M.D. Radiologist
== END 2024-04-01 16:00 | disposition home or self-care (01) ==
LOC: OR 10:09
PROVIDERS: ATTEND Surgery
DX: D05.11 Intraductal carcinoma in situ of right breast (principal); Z17.0 Estrogen receptor positive status [ER+]; Z80.3 Family history of malignant neoplasm of breast; I10 Essential (primary) hypertension; E78.2 Mixed hyperlipidemia; K21.9 Gastro-esophageal reflux disease without esophagitis; M81.0 Age-related osteoporosis without current pathological fracture; Z88.2 Allergy status to sulfonamides; Z88.5 Allergy status to narcotic agent; Z88.6 Allergy status to analgesic agent; Z88.8 Allergy status to other drugs, medicaments and biological substances; Z88.3 Allergy status to other anti-infective agents; Z79.82 Long term (current) use of aspirin; Z79.899 Other long term (current) drug therapy
CPT/HCPCS: 19301; 88342; 88307; 88341; 77065; 76098; 19285; C1819; J1644; J1100; J2405; J2001; J3010; J1885; J2704; J0665

== ENCOUNTER → 2024-10-26 | Outpatient (CLI) | payer MEDICARE ==
--- NOTE | 2024-10-26 11:30 | MM ---
Reason for Exam: Follow-up at short interval from prior study. Last mammogram was performed 1 year(s) and 1 month(s) ago. Patient History: Menarche at age 14. First Full-Term at age 24. Postmenopausal. Breast cancer, right, age 83. Previous chest radiation therapy at age 83. Patient used Hormonal Contraceptives for 5 years. 04/01/2024, Lumpectomy on the Right side. 04/01/2024, Malignant US breast localization RT on the right side. 03/17/2024, Malignant US biopsy breast VAD RT on the right side. Daughter had breast cancer, age 43. Daughter had breast cancer, age 49. Mother had breast cancer, age 89. Prior Study Comparison: 08/21/2020 Bilateral Screening Mammogram, [facility]. 10/09/2021 Bilateral Screening Mammogram, [facility]. 10/10/2022 Bilateral MG 3D screening mammo w/cad, [facility]. 10/13/2023 Bilateral MG 3D screening mammo w/cad, [facility]. 03/17/2024 Right MG diagnostic mammo RT wo CAD, [facility]. 04/01/2024 Right MG diagnostic mammo RT wo CAD, [facility]. Tissue Density: The breasts are heterogeneously dense, which may obscure small masses. Findings: Analyzed By CAD. Postlumpectomy changes right breast medially. No recurrent or residual mass seen. No mass is noted of the left breast. Benign calcifications are present. Overall Assessment: Benign, BI-RAD 2 Management: Diagnostic Mammogram of both breasts in 1 year. . Results were given to the patient verbally at the time of exam. Patient should continue monthly self-breast exams. A clinical breast exam by your physician is recommended on an annual basis. This exam should not preclude additional follow-up of suspicious palpable abnormalities. Note on Amelia scores and lifetime risk: 1. A Amelia score greater than 3% is considered moderate risk. If this is the case, consider specialist referral to assess eligibility for a risk reducing agent. 2. If overall lifetime risk for the development of breast cancer is 20% or higher, the patient may qualify for future screening with alternating mammogram and breast MRI. [facility], , 10/26/2024 11:27 AM. Electronically signed and approved by: Byron Crain M.D. Radiologis
== END | disposition home or self-care (01) ==
LOC: RADMAMWWP 10:44
PROVIDERS: ATTEND Surgery
DX: R92.8 Other abnormal and inconclusive findings on diagnostic imaging of breast (principal); R92.333 Mammographic heterogeneous density, bilateral breasts; Z78.0 Asymptomatic menopausal state; Z85.3 Personal history of malignant neoplasm of breast; Z92.0 Personal history of contraception; Z80.3 Family history of malignant neoplasm of breast
CPT/HCPCS: 77062; 77066